=== PATIENT | male | born 1935 | race Caucasian/White ===

== ENCOUNTER → 2017-11-22 13:38 | Outpatient (CLI) | payer MEDICARE, SELFPAY ==
[2017-11-22 17:23] LABS: Absolute Lymphocyte Count 0.76 X10^3/ul (0.83-4.51); Absolute Neutrophil Count 3.8 X10^3/uL (2.0-7.7); Basophil# 0.01 X10^3/uL; Basophil% 0.2 % (0-1); Eosinophil# 0.05 X10^3/uL; Eosinophils% 0.9 % (0-5); Hematocrit 42.9 % (40-54); Hemoglobin 13.9 g/dl (13.0-16.5); Lymphocyte # 0.76 X10^3/ul (4.0); Lymphocyte % 14.4 % (19-41); Mean Corp Hgb Conc 32.4 g/gl (32-36); Mean Corpuscular Hgb 32.4 pg (27.0-32.0); Mean Platelet Vol. 10.5 fl (6.2-12.0); Monocyte# 0.69 X10^3/uL; Monocyte% 13.1 % (0-10); Neutrophil # 3.76 X10^3/uL (2.7-7.7); Neutrophil % 71.4 % (47-70); Platelet Count 113 K/mm3 (150-450); RBC Distribution Width CV 14.9 % (11.6-14.6); RBC Distribution Width SD 53.6 fl (35.1-43.9); Red Blood Count 4.29 M/mm3 (4.6-6.2); White Blood Count 5.3 K/mm3 (4.4-11.0)
[2017-11-22 17:24] LABS: POSITIVE COUNT NO; POSITIVE DIFFERENTIAL NO; POSITIVE MORPHOLOGY NO
[2017-11-22 18:01] LABS: ALB/GLOB Ratio 1.3 RATIO (0.9-2.4); AST(SGOT) 61 U/L (15-37); Alanine Aminotransfer ALT/SGPT 91 U/L (16-61); Albumin, Serum 3.9 g/dL (3.2-5.0); Alkaline Phosphatase 113 U/L (45-117); Anion Gap 9 (5-15); BUN 16 mg/dL (7-18); BUN/Creat Ratio 12.4 RATIO (10-20); Calcium,Total 8.7 mg/dL (8.5-10.1); Chloride 104 mmol/L (98-107); Creatinine, Serum 1.29 mg/dL (0.70-1.30); EST Glomerular Filtration Rate 57 mL/min (>60); Est Glom Filt Rate - Afr Amer 69 mL/min (>60); Globulin 3.1 g/dL (2.2-4.2); Glucose 148 mg/dL (74-106); Sodium Level 139 mmol/L (136-145); Thyroid Stim Hormone (TSH) 3.11 uIU/mL (0.358-3.74)
[2017-11-22 21:37] LABS: Vitamin D,25 Hydroxy 94.1 ng/mL (19.95-100.01)
== END ==
PROVIDERS: Family Provider Family Medicine Geriatric Medicine; PCP Family Medicine Geriatric Medicine; Visit Provider Family Medicine Geriatric Medicine
DX: E55.9 Vitamin D deficiency, unspecified (principal); I10 Essential (primary) hypertension
CPT/HCPCS: 36415; 80053; 82306; 84443; 85025

== ENCOUNTER → 2017-12-20 14:28 | Outpatient (CLI) | payer MEDICARE, BC, SELFPAY ==
[2017-12-20 15:47] LABS: Absolute Lymphocyte Count 0.84 X10^3/ul (0.83-4.51); Absolute Neutrophil Count 4.8 X10^3/uL (2.0-7.7); Basophil# 0.01 X10^3/uL; Basophil% 0.2 % (0-1); Eosinophil# 0.08 X10^3/uL; Eosinophils% 1.2 % (0-5); Hematocrit 42.7 % (40-54); Hemoglobin 13.9 g/dl (13.0-16.5); Lymphocyte # 0.84 X10^3/ul (4.0); Lymphocyte % 12.9 % (19-41); Mean Corp Hgb Conc 32.6 g/gl (32-36); Mean Corpuscular Hgb 32.2 pg (27.0-32.0); Mean Corpuscular Volume 98.8 fL (80-94); Mean Platelet Vol. 10.4 fl (6.2-12.0); Monocyte% 12.3 % (0-10); Neutrophil # 4.75 X10^3/uL (2.7-7.7); Neutrophil % 73.1 % (47-70); Platelet Count 127 K/mm3 (150-450); RBC Distribution Width CV 14.2 % (11.6-14.6); RBC Distribution Width SD 50.8 fl (35.1-43.9); Red Blood Count 4.32 M/mm3 (4.6-6.2); White Blood Count 6.5 K/mm3 (4.4-11.0)
[2017-12-20 15:49] LABS: POSITIVE COUNT NO; POSITIVE DIFFERENTIAL NO; POSITIVE MORPHOLOGY NO
[2017-12-20 16:00] LABS: ALB/GLOB Ratio 1.2 RATIO (0.9-2.4); AST(SGOT) 30 U/L (15-37); Alanine Aminotransfer ALT/SGPT 29 U/L (16-61); Albumin, Serum 3.9 g/dL (3.2-5.0); Alkaline Phosphatase 123 U/L (45-117); Anion Gap 6 (5-15); BUN 17 mg/dL (7-18); BUN/Creat Ratio 14.7 RATIO (10-20); Calcium,Total 8.9 mg/dL (8.5-10.1); Chloride 101 mmol/L (98-107); Creatinine, Serum 1.16 mg/dL (0.70-1.30); EST Glomerular Filtration Rate 64 mL/min (>60); Est Glom Filt Rate - Afr Amer 78 mL/min (>60); Globulin 3.3 g/dL (2.2-4.2); Glucose 76 mg/dL (74-106); Potassium 3.9 mmol/L (3.5-5.1); Protein, Total 7.2 g/dL (6.4-8.2); Sodium Level 141 mmol/L (136-145)
== END ==
PROVIDERS: Family Provider Family Medicine Geriatric Medicine; PCP Family Medicine Geriatric Medicine; Visit Provider Internal Medicine Rheumatology
DX: M05.79 Rheumatoid arthritis with rheumatoid factor of multiple sites without organ or systems involvement (principal); M15.9 Polyosteoarthritis, unspecified; M21.40 Flat foot [pes planus] (acquired), unspecified foot; H35.30 Unspecified macular degeneration; K21.9 Gastro-esophageal reflux disease without esophagitis; I25.10 Atherosclerotic heart disease of native coronary artery without angina pectoris; I10 Essential (primary) hypertension; L12.0 Bullous pemphigoid; J44.9 Chronic obstructive pulmonary disease, unspecified; N40.1 Benign prostatic hyperplasia with lower urinary tract symptoms; Z95.0 Presence of cardiac pacemaker; Z79.899 Other long term (current) drug therapy
CPT/HCPCS: 36415; 80053; 85025

== ENCOUNTER → 2018-02-28 15:28 | Outpatient (CLI) | payer MEDICARE, BC, SELFPAY ==
[2018-02-22 16:13] LABS: BUN 21 mg/dL (7-18); EST Glomerular Filtration Rate 52 mL/min (>60); Est Glom Filt Rate - Afr Amer 63 mL/min (>60)
--- NOTE | 2018-02-28 15:35 | CT_ITS ---
STUDY: CT ANGIOGRAM ABDOMEN AND PELVIS WITH CONTRAST REASON FOR EXAM: Male, 82 years old. AAA repair, follow-up. RADIATION DOSAGE (If Supplied By Facility): CTDIvol = ( 27.70 ) mGy, DLP = ( 641.83 ) mGycm. Thank you Individualized dose optimization techniques were used for this CT.? TECHNIQUE: Thin slice helical CT angiogram of the abdomen and pelvis with curve planar, volume rendered, paracoronal and parasagittal 2-D multiplanar reformatted images saved to the PACS archive. COMPARISON: CT abdomen and pelvis 02/13/2017. FINDINGS: Body wall soft tissues: No acute process. Bilateral fat filled inguinal hernias, hernia defect on the left measuring approximately 3.1 cm and on the right approximately 2.7 cm. Osseous structures: No acute process. Bilateral total hip are the plasty's. Slight lumbar scoliosis. Generalized osteopenia. Mild low lumbar degenerative disc disease and facet arthropathy with mild foraminal stenosis. Mild left greater than right SI joint degenerative changes. Inferior chest: Lung bases are clear with features suggesting the presence of COPD. Correlate smoking history. There is a large sliding hiatal hernia containing the majority of the gastric fundus. The distal esophagus is unremarkable. Heart: Normal heart size without effusion. Median sternotomy. Coronary calcifications. Pacer wires. Hepatobiliary: A few tiny layering radiodense gallstones, otherwise unremarkable gallbladder and biliary tree with normal liver parenchyma. Pancreas: Mild atrophy. Spleen: Normal. Adrenal glands: Normal. Urogenital: Normal bilateral kidneys. Symmetric nephrograms. Intracortical benign-appearing cyst of the right kidney, mid polar. Normal collecting systems, ureters, urinary bladder. No significant prostatomegaly. Seminal vesicles obscured by beam hardening artifact in the pelvis from hip arthroplasties. Pelvic floor and sidewalls and retroperitoneum: No mass or lymphadenopathy. Gastric: Large sliding hiatal hernia, no acute process. Small bowel and mesentery: Normal. Large bowel: Normal appendix. Mild diverticulosis of the sigmoid without diverticulitis. No acute abnormality of the large bowel or rectum. Free fluid or free air: None. Vasculature: Descending thoracic aorta: 3.5 cm just proximal to the diaphragmatic hiatus, stent graft beginning in the hiatus where the aorta measures 3 cm. The stent graft terminates just below the renal arteries, fenestrated renal arteries. Proximal Infrarenal abdominal aorta: Just after the terminus of the stented proximal abdominal aorta, there is a segment of the aorta approximately 3.9 cm in length prior to the stented trouser leg's. This might represent a fabric bridge in the graft. It is uncertain whether graft material is present in this segment. There appears to be mural thrombus on the garcia in this segment, confined by a sharply demarcated rounded margins suggesting graft material. Distal infrarenal abdominal aorta: The stented trouser leg traverse the [place] aneurysm sac. The [place] aneurysm sac measures up to 10.8 cm in length. Proximally, it measures up to 5.36 cm anterior-posterior and 6.6 cm transverse. Distally it measures 4.7 cm anterior-posterior and 4.8 cm transverse. There is a small amount of calcification within the thrombus of the [place] sac. There is no definitive evidence for endoleak. No puddling or enhancement of contrast in the sac. No hyperdense acute thrombus within the sac. Iliac arteries: The stents distal landing zone is in the distal common iliac arteries. Widely patent. There are mild to moderate atherosclerotic calcifications and soft plaque of the internal and external iliac arteries without significant stenosis. There is mild plaque in the proximal femoral arteries without stenosis. Aortic branch vessels: Widely patent celiac trunk, superior mesenteric artery, single bilateral renal arteries. The SADIA is reconstituted via collateral vessels and does not enhance from the aorta. CT/CT ANGIO ABD&PEL W/O&W/DYE IMPRESSION: Morphology of the [place] aneurysm sac and aortoiliac stent is described in detail above. The morphology is similar to that seen on curved planar reformatted images from the prior study of 02/13/2017. The entirety of that study was not available for direct comparison. There is no convincing evidence of endoleak. Additional chronic findings of the abdomen and pelvis are detailed above. Electronically Signed: Frank Hdz, at 16:59 EDT Tel , Service support ,
== END ==
PROVIDERS: Family Provider Family Medicine Geriatric Medicine; PCP Family Medicine Geriatric Medicine; Visit Provider Surgery Vascular Surgery
DX: I71.4 Abdominal aortic aneurysm, without rupture (principal); I25.10 Atherosclerotic heart disease of native coronary artery without angina pectoris; I10 Essential (primary) hypertension; E78.00 Pure hypercholesterolemia, unspecified; Z95.828 Presence of other vascular implants and grafts
CPT/HCPCS: 36415; 74174; 82565; 84520; Q9967

== ENCOUNTER → 2018-04-16 15:50 | Outpatient (CLI) | payer MEDICARE, BC, SELFPAY ==
[2018-04-16 17:35] LABS: Absolute Lymphocyte Count 0.67 X10^3/ul (0.83-4.51); Absolute Neutrophil Count 3.1 X10^3/uL (2.0-7.7); Basophil# 0.01 X10^3/uL; Basophil% 0.2 % (0-1); Eosinophil# 0.09 X10^3/uL; Hematocrit 38.7 % (40-54); Lymphocyte # 0.67 X10^3/ul (4.0); Lymphocyte % 15.2 % (19-41); Mean Corp Hgb Conc 33.6 g/gl (32-36); Mean Corpuscular Hgb 33.2 pg (27.0-32.0); Mean Platelet Vol. 10.3 fl (6.2-12.0); Monocyte# 0.52 X10^3/uL; Monocyte% 11.8 % (0-10); Neutrophil # 3.11 X10^3/uL (2.7-7.7); Neutrophil % 70.6 % (47-70); Platelet Count 85 K/mm3 (150-450); RBC Distribution Width CV 14.6 % (11.6-14.6); RBC Distribution Width SD 51.2 fl (35.1-43.9); Red Blood Count 3.91 M/mm3 (4.6-6.2); White Blood Count 4.4 K/mm3 (4.4-11.0)
[2018-04-16 17:44] LABS: POSITIVE COUNT NO; POSITIVE DIFFERENTIAL NO; POSITIVE MORPHOLOGY NO
[2018-04-16 17:58] LABS: ALB/GLOB Ratio 1.2 RATIO (0.9-2.4); AST(SGOT) 33 U/L (15-37); Alanine Aminotransfer ALT/SGPT 37 U/L (16-61); Albumin, Serum 3.7 g/dL (3.2-5.0); Alkaline Phosphatase 95 U/L (45-117); Anion Gap 10 (5-15); BUN 25 mg/dL (7-18); BUN/Creat Ratio 19.2 RATIO (10-20); Calcium,Total 8.7 mg/dL (8.5-10.1); Chloride 104 mmol/L (98-107); EST Glomerular Filtration Rate 56 mL/min (>60); Est Glom Filt Rate - Afr Amer 68 mL/min (>60); Glucose 135 mg/dL (74-106); Protein, Total 6.7 g/dL (6.4-8.2); Sodium Level 143 mmol/L (136-145)
== END ==
PROVIDERS: Family Provider Family Medicine Geriatric Medicine; PCP Family Medicine Geriatric Medicine; Visit Provider Internal Medicine Rheumatology
DX: M15.9 Polyosteoarthritis, unspecified (principal); M21.40 Flat foot [pes planus] (acquired), unspecified foot; H35.30 Unspecified macular degeneration; K21.9 Gastro-esophageal reflux disease without esophagitis; I25.10 Atherosclerotic heart disease of native coronary artery without angina pectoris; I10 Essential (primary) hypertension; L12.0 Bullous pemphigoid; J44.9 Chronic obstructive pulmonary disease, unspecified; N40.1 Benign prostatic hyperplasia with lower urinary tract symptoms; Z95.0 Presence of cardiac pacemaker; Z79.899 Other long term (current) drug therapy
CPT/HCPCS: 36415; 80053; 85025

== ENCOUNTER → 2018-05-24 15:22 | Outpatient (CLI) | payer MEDICARE, BC, SELFPAY ==
[2018-05-24 17:14] LABS: Absolute Lymphocyte Count 0.68 X10^3/ul (0.83-4.51); Absolute Neutrophil Count 3.2 X10^3/uL (2.0-7.7); Basophil# 0.01 X10^3/uL; Basophil% 0.2 % (0-1); Eosinophil# 0.08 X10^3/uL; Eosinophils% 1.8 % (0-5); Hematocrit 38.6 % (40-54); Hemoglobin 12.4 g/dl (13.0-16.5); Lymphocyte # 0.68 X10^3/ul (4.0); Lymphocyte % 15.2 % (19-41); Mean Corp Hgb Conc 32.1 g/gl (32-36); Mean Corpuscular Hgb 32.6 pg (27.0-32.0); Mean Corpuscular Volume 101.6 fL (80-94); Mean Platelet Vol. 10.2 fl (6.2-12.0); Monocyte# 0.53 X10^3/uL; Monocyte% 11.8 % (0-10); Neutrophil # 3.17 X10^3/uL (2.7-7.7); Neutrophil % 70.8 % (47-70); Platelet Count 89 K/mm3 (150-450); RBC Distribution Width CV 14.8 % (11.6-14.6); RBC Distribution Width SD 53.3 fl (35.1-43.9); White Blood Count 4.5 K/mm3 (4.4-11.0)
[2018-05-24 17:17] LABS: POSITIVE COUNT NO; POSITIVE DIFFERENTIAL NO; POSITIVE MORPHOLOGY NO
[2018-05-24 17:42] LABS: ALB/GLOB Ratio 1.2 RATIO (0.9-2.4); AST(SGOT) 23 U/L (15-37); Alanine Aminotransfer ALT/SGPT 26 U/L (16-61); Albumin, Serum 3.6 g/dL (3.2-5.0); Alkaline Phosphatase 95 U/L (45-117); Anion Gap 10 (5-15); BUN 19 mg/dL (7-18); BUN/Creat Ratio 16.8 RATIO (10-20); Calcium,Total 8.6 mg/dL (8.5-10.1); Chloride 109 mmol/L (98-107); Creatinine, Serum 1.13 mg/dL (0.70-1.30); EST Glomerular Filtration Rate 66 mL/min (>60); Est Glom Filt Rate - Afr Amer 80 mL/min (>60); Globulin 2.9 g/dL (2.2-4.2); Glucose 111 mg/dL (74-106); Potassium 4.4 mmol/L (3.5-5.1); Protein, Total 6.5 g/dL (6.4-8.2); Sodium Level 146 mmol/L (136-145); Thyroid Stim Hormone (TSH) 1.31 uIU/mL (0.358-3.74)
[2018-05-25 08:28] LABS: Vitamin D,25 Hydroxy 129.6 ng/mL (29.95-100.01)
== END ==
PROVIDERS: Family Provider Family Medicine Geriatric Medicine; PCP Family Medicine Geriatric Medicine; Visit Provider Family Medicine Geriatric Medicine
DX: E55.9 Vitamin D deficiency, unspecified (principal); I10 Essential (primary) hypertension
CPT/HCPCS: 36415; 80053; 82306; 84443; 85025

== ENCOUNTER → 2018-06-12 16:46 | Outpatient (CLI) | payer MEDICARE, BC, SELFPAY ==
[2018-06-12 17:55] LABS: Absolute Lymphocyte Count 0.86 X10^3/ul (0.83-4.51); Absolute Neutrophil Count 4.3 X10^3/uL (2.0-7.7); Basophil# 0.01 X10^3/uL; Basophil% 0.2 % (0-1); Eosinophil# 0.08 X10^3/uL; Eosinophils% 1.4 % (0-5); Hematocrit 40.7 % (40-54); Hemoglobin 13.7 g/dl (13.0-16.5); Lymphocyte # 0.86 X10^3/ul (4.0); Lymphocyte % 15.1 % (19-41); Mean Corp Hgb Conc 33.7 g/gl (32-36); Mean Corpuscular Hgb 33.3 pg (27.0-32.0); Mean Corpuscular Volume 98.8 fL (80-94); Mean Platelet Vol. 10.1 fl (6.2-12.0); Monocyte# 0.47 X10^3/uL; Monocyte% 8.3 % (0-10); Neutrophil # 4.26 X10^3/uL (2.7-7.7); Neutrophil % 74.8 % (47-70); Platelet Count 105 K/mm3 (150-450); RBC Distribution Width CV 14.3 % (11.6-14.6); RBC Distribution Width SD 49.3 fl (35.1-43.9); Red Blood Count 4.12 M/mm3 (4.6-6.2); White Blood Count 5.7 K/mm3 (4.4-11.0)
[2018-06-12 17:57] LABS: POSITIVE COUNT NO; POSITIVE DIFFERENTIAL NO; POSITIVE MORPHOLOGY NO
[2018-06-12 18:25] LABS: ALB/GLOB Ratio 1.3 RATIO (0.9-2.4); AST(SGOT) 26 U/L (15-37); Alanine Aminotransfer ALT/SGPT 23 U/L (16-61); Albumin, Serum 3.9 g/dL (3.2-5.0); Alkaline Phosphatase 105 U/L (45-117); Anion Gap 6 (5-15); BUN 18 mg/dL (7-18); BUN/Creat Ratio 16.1 RATIO (10-20); Calcium,Total 8.9 mg/dL (8.5-10.1); Chloride 106 mmol/L (98-107); Creatinine, Serum 1.12 mg/dL (0.70-1.30); EST Glomerular Filtration Rate 67 mL/min (>60); Est Glom Filt Rate - Afr Amer 81 mL/min (>60); Globulin 3.1 g/dL (2.2-4.2); Glucose 92 mg/dL (74-106); Potassium 4.6 mmol/L (3.5-5.1); Sodium Level 140 mmol/L (136-145)
== END ==
PROVIDERS: Family Provider Family Medicine Geriatric Medicine; PCP Family Medicine Geriatric Medicine; Visit Provider Internal Medicine Rheumatology
DX: M05.79 Rheumatoid arthritis with rheumatoid factor of multiple sites without organ or systems involvement (principal); Z79.899 Other long term (current) drug therapy; M15.9 Polyosteoarthritis, unspecified
CPT/HCPCS: 36415; 80053; 85025

== ENCOUNTER → 2018-06-27 13:05 | Outpatient (CLI) | payer MEDICARE, BC, SELFPAY ==
[2018-06-27 15:34] LABS: Absolute Lymphocyte Count 0.89 X10^3/ul (0.83-4.51); Absolute Neutrophil Count 4.3 X10^3/uL (2.0-7.7); Basophil# 0.02 X10^3/uL; Basophil% 0.3 % (0-1); Eosinophil# 0.09 X10^3/uL; Eosinophils% 1.5 % (0-5); Hematocrit 40.3 % (40-54); Hemoglobin 13.3 g/dl (13.0-16.5); Lymphocyte # 0.89 X10^3/ul (4.0); Lymphocyte % 14.7 % (19-41); Mean Corpuscular Hgb 33.4 pg (27.0-32.0); Mean Corpuscular Volume 101.3 fL (80-94); Monocyte# 0.73 X10^3/uL; Neutrophil # 4.32 X10^3/uL (2.7-7.7); Neutrophil % 71.3 % (47-70); Platelet Count 119 K/mm3 (150-450); RBC Distribution Width CV 14.5 % (11.6-14.6); Red Blood Count 3.98 M/mm3 (4.6-6.2); White Blood Count 6.1 K/mm3 (4.4-11.0)
[2018-06-27 15:35] LABS: POSITIVE COUNT NO; POSITIVE DIFFERENTIAL NO; POSITIVE MORPHOLOGY NO
[2018-06-27 16:24] LABS: ALB/GLOB Ratio 1.3 RATIO (0.9-2.4); AST(SGOT) 21 U/L (15-37); Alanine Aminotransfer ALT/SGPT 25 U/L (16-61); Albumin, Serum 3.9 g/dL (3.2-5.0); Alkaline Phosphatase 101 U/L (45-117); Anion Gap 7 (5-15); BUN 21 mg/dL (7-18); BUN/Creat Ratio 17.4 RATIO (10-20); Chloride 106 mmol/L (98-107); Creatinine, Serum 1.21 mg/dL (0.70-1.30); EST Glomerular Filtration Rate 61 mL/min (>60); Est Glom Filt Rate - Afr Amer 74 mL/min (>60); Globulin 3.1 g/dL (2.2-4.2); Glucose 82 mg/dL (74-106); Potassium 4.3 mmol/L (3.5-5.1); Sodium Level 142 mmol/L (136-145); Thyroid Stim Hormone (TSH) 2.18 uIU/mL (0.358-3.74)
== END ==
PROVIDERS: Family Provider Family Medicine Geriatric Medicine; PCP Family Medicine Geriatric Medicine; Visit Provider Family Medicine Geriatric Medicine
DX: I10 Essential (primary) hypertension (principal); N39.0 Urinary tract infection, site not specified
CPT/HCPCS: 36415; 80053; 84443; 85025; 87086; 87088

== ENCOUNTER → 2018-07-03 18:38 | Outpatient (CLI) | payer MEDICARE, BC, SELFPAY ==
--- NOTE | 2018-07-03 | FLU_PTH ---
PATIENT: ADRIEN MAGALLON LOC: [facility] U#:[id number] AGE/SX: 89/M ROOM: RE07/03/[address]: PRICILA Coombs : 1935 BED: DIS: SPEC #: [id number] RECD: 07/03/18 16:00 STATUS: DOMINIC BIJU #: [id number] FRANCISCA: 07/03/18 00:[address]: Nancy Cao NP DEPT: CYTOLOGY RECD BY: Ct Martin Tissues: Urine Procedures: Pap Stain (control) Special Stain Group II Surgery Specimen Level IV Cytospin Fluid HEADER OPERATION: Not noted PRE-OP DIAGNOSIS: R82.99 TISSUE SUBMITTED: Urine for cytology DIAGNOSIS CYTOLOGY Urine for cytology (cytospin): Mildly atypical urothelial cells noted in the background of marked acute inflammation. See comment. STELLA:elicia 07/05/18 COMMENT Numerous organisms consistent with bacteria are also noted. Repeat cytology is suggested if clinically indicated after treatment of inflammation. CYTOLOGY STUDY Slides are reviewed. CYTOLOGY GROSS Received is 710 ml of hazy yellow fluid labeled with the patient's name and and designated per the requisition as urine. Submitted for cytology preparation. / CC:cc 07/04/18 TC:2 CPT: 01606
[2018-07-03 18:40] LABS: Cytology, Body Fluid / CSF SEE PATHOLOGY REPORT
== END ==
PROVIDERS: Referring Provider Nurse Practitioner Adult Health; Visit Provider Nurse Practitioner Adult Health
DX: R82.99 Other abnormal findings in urine (principal)
CPT/HCPCS: 87086; 87088; 88108; 88305; 88313

== ENCOUNTER → 2018-07-16 16:04 | Outpatient (CLI) | payer MEDICARE, BC, SELFPAY ==
[2018-07-16 17:16] LABS: Vitamin D,25 Hydroxy 86.8 ng/mL (29.95-100.01)
== END ==
PROVIDERS: Visit Provider Family Medicine Geriatric Medicine
DX: E55.9 Vitamin D deficiency, unspecified (principal)
CPT/HCPCS: 36415; 82306

== ENCOUNTER 2018-08-25 16:29 | Emergency (ER) | payer MEDICARE, BC, SELFPAY ==
[2018-08-25 16:30] VITALS: BP 144/70; PULSE 57; RESP 16; TEMP 36.2; O2SAT 95; BMI 22.2
--- NOTE | 2018-08-25 17:49 | ED.VISSUMM ---
- ER Visit Summary Date of Service: 08/25/18 Chief Complaint: Bleeding History of Present Illness: The patient is a 83 M with bleeding at his right hand splint. He had surgery to his right fourth and fifth fingers yesterday by Dr. De La Garza. He had pins placed in his phalanges. Patient does take aspirin. He noted some leakage of blood from the splint. He called the office and was advised to come to the emergency department. Patient has no other symptoms. Physical Examination: Afebrile and vital signs unremarkable. Patient has a right ulnar gutter splint in place which shows blood seeping through the dressings. He is neurovascularly intact distally. Otherwise exam unremarkable. Test Results: None performed Emergency Department Course and Treatment: Risks were discussed. Splint was removed. The dressing was partially saturated with blood. Has surgical sites on his dorsal fourth and fifth digits. They are oozing bright red blood. There are neurovascular intact. The wounds appeared normal otherwise. Bleeding resolved with direct pressure and Gelfoam. Splint was reapplied. Patient was advised to follow-up with his physician. Treatment Plan: As above Disposition: Discharged Impression: 1. Wound check right hand This note was generated with [employer] dictation software. It may contain incorrect words, spelling, and punctuation that were not noted in review of the chart prior to signing ED Disposition - Plan for ED Patient: Chief Complaint: Wound Check Referrals: Anuel Garcia Chi, MD [Primary Care Provider] -
--- NOTE | 2018-08-25 17:52 | ED.DCSUM_ITS ---
- ER Visit Summary Date of Service: 08/25/18 Chief Complaint: Bleeding History of Present Illness: The patient is a 83 M with bleeding at his right hand splint. He had surgery to his right fourth and fifth fingers yesterday by Dr. De La Garza. He had pins placed in his phalanges. Patient does take aspirin. H e noted some leakage of blood from the splint. He called the office and was advised to come to the emergency department. Patient has no other symptoms. Physical Examination: Afebrile and vital signs unremarkable. Patient has a right ulnar gutter splint in place which shows blood seeping through the dressings. He is neurovascularly intact distally. Otherwise exam unremarkable. Test Results: None performed Emergency Department Course and Treatment: Risks were discussed. Splint was removed. The dressing was partially saturated with blood. Has surgical sites on his dorsal fourth and fifth digits. They are oozing bright red blood. There are neurovascular intact. The wounds appeared normal otherwise. Bleeding resolved with direct pressure and Gelfoam. Splint was reapplied. Patient was advised to follow-up with his physician. Treatment Plan: As above Disposition: Discharged Impression: 1. Wound check right hand This note was generated with [employer] dictation software. It may contain incorrect words, spelling, and punctuation that were not noted in review of the chart prior to signing ED Disposition - Plan for ED Patient: Chief Complaint: Wound Check Referrals: Anuel Garcia Chi, MD [Primary Care Provider] -
--- NOTE | 2018-08-25 17:52 | ED.DEP ---
ED Disposition - Plan for ED Patient: Chief Complaint: Wound Check Instructions: ED Wound Check Post Op Bleeding Additional Instructions: follow up with your surgeon
== END 2018-08-25 18:23 | disposition short-term general hospital (02) ==
PROVIDERS: Emergency Provider Emergency Medicine; Family Provider Family Medicine Geriatric Medicine; PCP Family Medicine Geriatric Medicine
DX: Z48.01 Encounter for change or removal of surgical wound dressing (principal); I25.10 Atherosclerotic heart disease of native coronary artery without angina pectoris; I11.0 Hypertensive heart disease with heart failure; I50.9 Heart failure, unspecified; I48.91 Unspecified atrial fibrillation; I73.9 Peripheral vascular disease, unspecified; D64.9 Anemia, unspecified; Z95.1 Presence of aortocoronary bypass graft; Z79.82 Long term (current) use of aspirin; Z79.899 Other long term (current) drug therapy; Z87.891 Personal history of nicotine dependence
CPT/HCPCS: 29125; 99283

== ENCOUNTER → 2018-09-12 15:22 | Outpatient (CLI) | payer MEDICARE, BC, SELFPAY ==
[2018-08-25 16:30] VITALS: BMI 22.2
[2018-09-12 17:32] LABS: Absolute Lymphocyte Count 0.62 X10^3/ul (0.83-4.51); Absolute Neutrophil Count 3.5 X10^3/uL (2.0-7.7); Basophil# 0.01 X10^3/uL; Basophil% 0.2 % (0-1); Eosinophil# 0.13 X10^3/uL; Eosinophils% 2.7 % (0-5); Hematocrit 38.3 % (40-54); Hemoglobin 13.1 g/dl (13.0-16.5); Lymphocyte # 0.62 X10^3/ul (4.0); Lymphocyte % 12.9 % (19-41); Mean Corp Hgb Conc 34.2 g/gl (32-36); Mean Corpuscular Hgb 35.3 pg (27.0-32.0); Mean Corpuscular Volume 103.2 fL (80-94); Mean Platelet Vol. 10.1 fl (6.2-12.0); Monocyte# 0.51 X10^3/uL; Monocyte% 10.6 % (0-10); Neutrophil # 3.54 X10^3/uL (2.7-7.7); Neutrophil % 73.4 % (47-70); Platelet Count 95 K/mm3 (150-450); RBC Distribution Width CV 14.7 % (11.6-14.6); RBC Distribution Width SD 53.3 fl (35.1-43.9); Red Blood Count 3.71 M/mm3 (4.6-6.2); White Blood Count 4.8 K/mm3 (4.4-11.0)
[2018-09-12 17:41] LABS: POSITIVE COUNT NO; POSITIVE DIFFERENTIAL NO; POSITIVE MORPHOLOGY NO
[2018-09-12 17:44] LABS: ALB/GLOB Ratio 1.3 RATIO (0.9-2.4); AST(SGOT) 29 U/L (15-37); Alanine Aminotransfer ALT/SGPT 29 U/L (16-61); Albumin, Serum 3.7 g/dL (3.2-5.0); Alkaline Phosphatase 98 U/L (45-117); Anion Gap 9 (5-15); BUN 16 mg/dL (7-18); BUN/Creat Ratio 13.8 RATIO (10-20); Calcium,Total 8.6 mg/dL (8.5-10.1); Chloride 107 mmol/L (98-107); Creatinine, Serum 1.16 mg/dL (0.70-1.30); EST Glomerular Filtration Rate 64 mL/min (>60); Est Glom Filt Rate - Afr Amer 78 mL/min (>60); Globulin 2.9 g/dL (2.2-4.2); Glucose 127 mg/dL (74-106); Potassium 4.1 mmol/L (3.5-5.1); Protein, Total 6.6 g/dL (6.4-8.2); Sodium Level 142 mmol/L (136-145)
== END ==
PROVIDERS: Family Provider Family Medicine Geriatric Medicine; PCP Family Medicine Geriatric Medicine; Referring Provider Internal Medicine Rheumatology; Visit Provider Internal Medicine Rheumatology
DX: M05.79 Rheumatoid arthritis with rheumatoid factor of multiple sites without organ or systems involvement (principal); Z79.899 Other long term (current) drug therapy; M15.9 Polyosteoarthritis, unspecified
CPT/HCPCS: 36415; 80053; 85025

== ENCOUNTER → 2018-12-25 14:29 | Outpatient (CLI) | payer MEDICARE, BC, SELFPAY ==
[2018-12-25 15:38] LABS: Absolute Lymphocyte Count 0.84 X10^3/ul (0.83-4.51); Absolute Neutrophil Count 4.1 X10^3/uL (2.0-7.7); Basophil# 0.02 X10^3/uL; Basophil% 0.3 % (0-1); Eosinophil# 0.05 X10^3/uL; Eosinophils% 0.9 % (0-5); Hematocrit 40.3 % (40-54); Hemoglobin 13.2 g/dl (13.0-16.5); Lymphocyte # 0.84 X10^3/ul (4.0); Lymphocyte % 14.6 % (19-41); Mean Corp Hgb Conc 32.8 g/gl (32-36); Mean Corpuscular Hgb 33.2 pg (27.0-32.0); Mean Corpuscular Volume 101.3 fL (80-94); Mean Platelet Vol. 9.8 fl (6.2-12.0); Monocyte# 0.72 X10^3/uL; Monocyte% 12.5 % (0-10); Neutrophil # 4.12 X10^3/uL (2.7-7.7); Neutrophil % 71.4 % (47-70); Platelet Count 111 K/mm3 (150-450); RBC Distribution Width CV 14.5 % (11.6-14.6); RBC Distribution Width SD 51.7 fl (35.1-43.9); Red Blood Count 3.98 M/mm3 (4.6-6.2); White Blood Count 5.8 K/mm3 (4.4-11.0)
[2018-12-25 15:46] LABS: POSITIVE COUNT NO; POSITIVE DIFFERENTIAL NO; POSITIVE MORPHOLOGY NO
[2018-12-25 16:23] LABS: ALB/GLOB Ratio 1.3 RATIO (0.9-2.4); AST(SGOT) 32 U/L (15-37); Alanine Aminotransfer ALT/SGPT 33 U/L (16-61); Albumin, Serum 3.7 g/dL (3.2-5.0); Alkaline Phosphatase 109 U/L (45-117); Anion Gap 2 (5-15); BUN 23 mg/dL (7-18); BUN/Creat Ratio 20.7 RATIO (10-20); Calcium,Total 8.5 mg/dL (8.5-10.1); Chloride 108 mmol/L (98-107); Creatinine, Serum 1.11 mg/dL (0.70-1.30); EST Glomerular Filtration Rate 67 mL/min (>60); Est Glom Filt Rate - Afr Amer 82 mL/min (>60); Globulin 2.8 g/dL (2.2-4.2); Glucose 75 mg/dL (74-106); Potassium 4.6 mmol/L (3.5-5.1); Protein, Total 6.5 g/dL (6.4-8.2); Sodium Level 140 mmol/L (136-145)
== END ==
PROVIDERS: Family Provider Family Medicine Geriatric Medicine; PCP Family Medicine Geriatric Medicine; Referring Provider Internal Medicine Rheumatology; Visit Provider Internal Medicine Rheumatology
DX: M05.79 Rheumatoid arthritis with rheumatoid factor of multiple sites without organ or systems involvement (principal); M15.9 Polyosteoarthritis, unspecified; M21.40 Flat foot [pes planus] (acquired), unspecified foot; H35.30 Unspecified macular degeneration; Z79.899 Other long term (current) drug therapy
CPT/HCPCS: 36415; 80053; 85025

== ENCOUNTER → 2019-03-12 16:34 | Outpatient (CLI) | payer MEDICARE, BC, SELFPAY ==
[2019-03-12 17:05] LABS: Absolute Lymphocyte Count 0.93 X10^3/ul (0.83-4.51); Basophil# 0.01 X10^3/uL; Basophil% 0.2 % (0-1); Eosinophil# 0.08 X10^3/uL; Eosinophils% 1.4 % (0-5); Hematocrit 39.9 % (40-54); Hemoglobin 13.3 g/dl (13.0-16.5); Lymphocyte # 0.93 X10^3/ul (4.0); Lymphocyte % 16.8 % (19-41); Mean Corp Hgb Conc 33.3 g/gl (32-36); Mean Corpuscular Hgb 32.6 pg (27.0-32.0); Mean Corpuscular Volume 97.8 fL (80-94); Mean Platelet Vol. 10.1 fl (6.2-12.0); Monocyte# 0.53 X10^3/uL; Monocyte% 9.6 % (0-10); Neutrophil # 3.97 X10^3/uL (2.7-7.7); Neutrophil % 71.8 % (47-70); Platelet Count 101 K/mm3 (150-450); RBC Distribution Width CV 14.2 % (11.6-14.6); RBC Distribution Width SD 49.9 fl (35.1-43.9); Red Blood Count 4.08 M/mm3 (4.6-6.2); White Blood Count 5.5 K/mm3 (4.4-11.0)
[2019-03-12 17:07] LABS: POSITIVE COUNT NO; POSITIVE DIFFERENTIAL NO; POSITIVE MORPHOLOGY NO
[2019-03-12 17:47] LABS: ALB/GLOB Ratio 1.2 RATIO (0.9-2.4); AST(SGOT) 33 U/L (15-37); Alanine Aminotransfer ALT/SGPT 37 U/L (16-61); Albumin, Serum 3.7 g/dL (3.2-5.0); Alkaline Phosphatase 124 U/L (45-117); Anion Gap 8 (5-15); BUN 19 mg/dL (7-18); BUN/Creat Ratio 15.8 RATIO (10-20); Chloride 107 mmol/L (98-107); EST Glomerular Filtration Rate 62 mL/min (>60); Est Glom Filt Rate - Afr Amer 75 mL/min (>60); Globulin 3.1 g/dL (2.2-4.2); Glucose 126 mg/dL (74-106); Potassium 4.2 mmol/L (3.5-5.1); Protein, Total 6.8 g/dL (6.4-8.2); Sodium Level 140 mmol/L (136-145)
== END ==
PROVIDERS: Family Provider Family Medicine Geriatric Medicine; PCP Family Medicine Geriatric Medicine; Referring Provider Internal Medicine Rheumatology; Visit Provider Internal Medicine Rheumatology
DX: M05.79 Rheumatoid arthritis with rheumatoid factor of multiple sites without organ or systems involvement (principal); M15.9 Polyosteoarthritis, unspecified; M21.40 Flat foot [pes planus] (acquired), unspecified foot; H35.30 Unspecified macular degeneration; K21.9 Gastro-esophageal reflux disease without esophagitis; I25.10 Atherosclerotic heart disease of native coronary artery without angina pectoris; I10 Essential (primary) hypertension; L12.0 Bullous pemphigoid; J44.9 Chronic obstructive pulmonary disease, unspecified; Z95.0 Presence of cardiac pacemaker; Z79.899 Other long term (current) drug therapy
CPT/HCPCS: 36415; 80053; 85025

== ENCOUNTER → 2019-03-15 13:01 | Outpatient (CLI) | payer MEDICARE, BC, SELFPAY ==
--- NOTE | 2019-03-15 13:03 | ART_ITS ---
Reason For Study: ATHEROSCLEROSIS Procedure A bilateral lower extremity continuous wave Doppler with analog waveform analysis and ankle brachial indexes. Left Segmental Pressures Left posterior tibial artery = 154mmHg. Left dorsalis pedis artery = 155mmHg. Left digit = 95 mmHg. The left dorsalis pedis waveforms are biphasic. The left posterior tibial artery waveforms are biphasic. Left brachial= 147mmHg. Right Segmental Pressures Right posterior tibial artery = 160mmHg. Right dorsalis pedis artery = 169mmHg. Right digit = 99 mmHg. The right dorsalis pedis waveforms are triphasic. The right posterior tibial artery waveforms are triphasic. Right brachial= 156mmHg. Indices The right ankle brachial index by the dorsalis pedis is 1.08. The right ankle brachial index by the posterior tibial artery is 1.03. The right digital-brachial index is .63. The left ankle brachial index by the posterior tibial artery is .99. The left ankle brachial index by the dorsalis pedis is .99. The left digital-brachial index is .61. Interpretation Summary 1. Bilateral no occlussive disease at rest with triphasic flow and miguel 1.08/0.99 and dbi 0.63/0.60. Ordering Physician: Daniel Salmeron Referring Physician: PUNEET NIX CHI Performed By: Simi Palomo, SANDYCS, RVT
[2019-03-15 15:31] LABS: BUN 19 mg/dL (7-18); Creatinine, Serum 1.06 mg/dL (0.70-1.30); EST Glomerular Filtration Rate 71 mL/min (>60); Est Glom Filt Rate - Afr Amer 86 mL/min (>60)
== END ==
PROVIDERS: Family Provider Family Medicine Geriatric Medicine; PCP Family Medicine Geriatric Medicine; Referring Provider Surgery Vascular Surgery; Visit Provider Surgery Vascular Surgery
DX: I70.213 Atherosclerosis of native arteries of extremities with intermittent claudication, bilateral legs (principal); I25.10 Atherosclerotic heart disease of native coronary artery without angina pectoris; I71.4 Abdominal aortic aneurysm, without rupture; I10 Essential (primary) hypertension; E78.70 Disorder of bile acid and cholesterol metabolism, unspecified; Z95.828 Presence of other vascular implants and grafts
CPT/HCPCS: 36415; 82565; 84520; 93922

== ENCOUNTER → 2019-03-28 | Outpatient (CLI) | payer MEDICARE, BC, SELFPAY ==
[2019-03-28 15:38] LABS: Absolute Neutrophil Count 3.4 X10^3/uL (2.0-7.7); Basophil# 0.01 X10^3/uL; Basophil% 0.2 % (0-1); Eosinophil# 0.07 X10^3/uL; Eosinophils% 1.4 % (0-5); Hematocrit 41.7 % (40-54); Hemoglobin 13.5 g/dl (13.0-16.5); Lymphocyte % 14.1 % (19-41); Mean Corp Hgb Conc 32.4 g/gl (32-36); Mean Corpuscular Hgb 31.5 pg (27.0-32.0); Mean Corpuscular Volume 97.4 fL (80-94); Mean Platelet Vol. 9.9 fl (6.2-12.0); Monocyte# 0.72 X10^3/uL; Monocyte% 14.5 % (0-10); Neutrophil # 3.43 X10^3/uL (2.7-7.7); Neutrophil % 69.4 % (47-70); Platelet Count 117 K/mm3 (150-450); RBC Distribution Width SD 47.2 fl (35.1-43.9); Red Blood Count 4.28 M/mm3 (4.6-6.2)
[2019-03-28 15:39] LABS: POSITIVE COUNT NO; POSITIVE DIFFERENTIAL NO; POSITIVE MORPHOLOGY NO
[2019-03-28 16:03] LABS: Vitamin D,25 Hydroxy 55.5 ng/mL (29.95-100.01)
[2019-03-28 16:04] LABS: ALB/GLOB Ratio 1.1 RATIO (0.9-2.4); AST(SGOT) 26 U/L (15-37); Alanine Aminotransfer ALT/SGPT 31 U/L (16-61); Albumin, Serum 3.5 g/dL (3.2-5.0); Alkaline Phosphatase 116 U/L (45-117); Anion Gap 7 (5-15); BUN 20 mg/dL (7-18); BUN/Creat Ratio 16.7 RATIO (10-20); Calcium,Total 8.8 mg/dL (8.5-10.1); Chloride 107 mmol/L (98-107); EST Glomerular Filtration Rate 62 mL/min (>60); Est Glom Filt Rate - Afr Amer 75 mL/min (>60); Globulin 3.2 g/dL (2.2-4.2); Glucose 121 mg/dL (74-106); Potassium 4.3 mmol/L (3.5-5.1); Protein, Total 6.7 g/dL (6.4-8.2); Sodium Level 143 mmol/L (136-145); Thyroid Stim Hormone (TSH) 2.03 uIU/mL (0.358-3.74)
== END | disposition home or self-care (01) ==
LOC: POLAB3 10:37
PROVIDERS: Family Provider Family Medicine Geriatric Medicine; PCP Family Medicine Geriatric Medicine; Visit Provider Family Medicine Geriatric Medicine
DX: E55.9 Vitamin D deficiency, unspecified (principal); I10 Essential (primary) hypertension
CPT/HCPCS: 36415; 80053; 82306; 84443; 85025

== ENCOUNTER → 2019-06-06 14:42 | Outpatient (CLI) | payer MEDICARE, BC, SELFPAY ==
[2019-06-03 17:08] LABS: BUN 12 mg/dL (7-18); Creatinine, Serum 1.13 mg/dL (0.70-1.30); EST Glomerular Filtration Rate 66 mL/min (>60); Est Glom Filt Rate - Afr Amer 80 mL/min (>60)
--- NOTE | 2019-06-06 14:46 | CT_ITS ---
CT angiogram of the abdomen and pelvis INDICATION: Abdominal aortic aneurysm. COMPARISON: 02/28/2018 TECHNIQUE: Multiple thin section axial CT images the abdomen and pelvis are obtained from lung bases to pubic symphysis without the ministration of oral contrast and after administration of 100 mL of Isovue-370 intravenously and filmed in the arterial phase the bolus. Furthermore, multiple sagittal, coronal, 3-D reconstructions were performed. FINDINGS: The lung bases are clear. Some calcified gallstones are seen in the gallbladder consistent with cholelithiasis. The unenhanced liver, spleen, pancreas, adrenal glands, and kidneys are normal. Large hiatal hernia. Large amount of stool the rectum may represent a fecal impaction. Multiple diverticula throughout the colon consistent with diverticulosis. No bowel wall thickening or stranding 70 fat consistent radiculitis. There are small bilateral anal hernias with a hernia in the right containing a loop of small bowel in the hernia in the left containing a loop of sigmoid colon but without bowel obstruction. No abnormal mass, lymphadenopathy, fluid collection. Next 3.5 cm aneurysm of the distal descending thoracic aorta. There is no change in the 5.5 cm aneurysm of the infrarenal abdominal aorta treated with aortic stent graft. There is no evidence of contrast enhancement within the sac to suggest endoleak. Both limbs of the graft are patent. Moderately diseased iliac arteries. The celiac axis and superior mesenteric artery are widely patent without evidence chronic mesenteric ischemia. The inferior mesenteric artery is excluded by the aneurysm. There are single renal arteries bilaterally without evidence of renal artery stenosis. IMPRESSION: No change in 5.5 cm abdominal aortic aneurysm treated with aortic stent graft without evidence of endoleak. Electronically Signed: Frank Mohamud MD at 15:47 EDT Tel , Service support , CT/CT ANGIO ABD&PEL W/O&W/DYE
== END ==
PROVIDERS: Family Provider Family Medicine Geriatric Medicine; PCP Family Medicine Geriatric Medicine; Referring Provider Surgery Vascular Surgery; Visit Provider Surgery Vascular Surgery
DX: Z95.828 Presence of other vascular implants and grafts (principal); I71.4 Abdominal aortic aneurysm, without rupture; I25.10 Atherosclerotic heart disease of native coronary artery without angina pectoris; E78.70 Disorder of bile acid and cholesterol metabolism, unspecified; I10 Essential (primary) hypertension
CPT/HCPCS: 36415; 74174; 82565; 84520; Q9967

== ENCOUNTER → 2019-06-21 16:10 | Outpatient (CLI) | payer MEDICARE, BC, SELFPAY ==
[2019-06-21 17:54] LABS: ALB/GLOB Ratio 1.2 RATIO (0.9-2.4); AST(SGOT) 26 U/L (15-37); Alanine Aminotransfer ALT/SGPT 28 U/L (16-61); Albumin, Serum 3.5 g/dL (3.2-5.0); Alkaline Phosphatase 113 U/L (45-117); Anion Gap 7 (5-15); BUN 15 mg/dL (7-18); BUN/Creat Ratio 13.5 RATIO (10-20); Calcium,Total 8.6 mg/dL (8.5-10.1); Chloride 109 mmol/L (98-107); Creatinine, Serum 1.11 mg/dL (0.70-1.30); EST Glomerular Filtration Rate 67 mL/min (>60); Est Glom Filt Rate - Afr Amer 82 mL/min (>60); Glucose 91 mg/dL (74-106); Potassium 4.7 mmol/L (3.5-5.1); Protein, Total 6.5 g/dL (6.4-8.2); Sodium Level 142 mmol/L (136-145)
[2019-06-21 18:16] LABS: Absolute Lymphocyte Count 0.87 X10^3/uL (0.83-4.51); Absolute Neutrophil Count 3.6 X10^3/uL (2.0-7.7); Basophil# 0.02 X10^3/uL; Basophil% 0.4 % (0-1); Eosinophil# 0.07 X10^3/uL; Eosinophils% 1.3 % (0-5); Hematocrit 38.1 % (40-54); Hemoglobin 12.4 g/dL (13.0-16.5); Lymphocyte # 0.87 X10^3/ul (4.0); Lymphocyte % 16.3 % (19-41); Mean Corp Hgb Conc 32.5 g/dL (32-36); Mean Corpuscular Hgb 34.1 pg (27.0-32.0); Mean Corpuscular Volume 104.7 fL (80-94); Mean Platelet Vol. 10.6 fl (6.2-12.0); Monocyte# 0.73 X10^3/uL; Monocyte% 13.7 % (0-10); NRBC Flagged by Analyzer 0 % (0-5); Neutrophil # 3.62 X10^3/uL (2.7-7.7); Neutrophil % 67.9 % (47-70); Platelet Count 108 K/mm3 (150-450); RBC Distribution Width CV 14.7 % (11.6-14.6); RBC Distribution Width SD 55.4 fl (35.1-43.9); Red Blood Count 3.64 M/mm3 (4.6-6.2); White Blood Count 5.3 K/mm3 (4.4-11.0)
== END ==
PROVIDERS: Family Provider Family Medicine Geriatric Medicine; PCP Family Medicine Geriatric Medicine; Referring Provider Family Medicine Geriatric Medicine; Visit Provider Internal Medicine Rheumatology
DX: M05.79 Rheumatoid arthritis with rheumatoid factor of multiple sites without organ or systems involvement (principal); M15.9 Polyosteoarthritis, unspecified; M21.40 Flat foot [pes planus] (acquired), unspecified foot; H35.30 Unspecified macular degeneration; K21.9 Gastro-esophageal reflux disease without esophagitis; I25.10 Atherosclerotic heart disease of native coronary artery without angina pectoris; I10 Essential (primary) hypertension; L12.0 Bullous pemphigoid; J44.9 Chronic obstructive pulmonary disease, unspecified; N40.1 Benign prostatic hyperplasia with lower urinary tract symptoms; Z95.0 Presence of cardiac pacemaker; Z79.899 Other long term (current) drug therapy
CPT/HCPCS: 36415; 80053; 85025

== ENCOUNTER → 2019-07-11 13:34 | Outpatient (CLI) | payer MEDICARE, BC, SELFPAY ==
[2019-07-11 16:43] LABS: Absolute Lymphocyte Count 0.74 X10^3/uL (0.83-4.51); Absolute Neutrophil Count 4.1 X10^3/uL (2.0-7.7); Basophil# 0.02 X10^3/uL; Basophil% 0.3 % (0-1); Eosinophils% 1.7 % (0-5); Hematocrit 37.9 % (40-54); Hemoglobin 12.7 g/dL (13.0-16.5); Lymphocyte # 0.74 X10^3/ul (4.0); Lymphocyte % 12.7 % (19-41); Mean Corp Hgb Conc 33.5 g/dL (32-36); Mean Corpuscular Hgb 34.8 pg (27.0-32.0); Mean Corpuscular Volume 103.8 fL (80-94); Mean Platelet Vol. 10.3 fl (6.2-12.0); Monocyte# 0.78 X10^3/uL; Monocyte% 13.4 % (0-10); NRBC Flagged by Analyzer 0 % (0-5); Neutrophil # 4.13 X10^3/uL (2.7-7.7); Neutrophil % 71.2 % (47-70); Platelet Count 105 K/mm3 (150-450); RBC Distribution Width CV 14.3 % (11.6-14.6); RBC Distribution Width SD 51.8 fl (35.1-43.9); Red Blood Count 3.65 M/mm3 (4.6-6.2); White Blood Count 5.8 K/mm3 (4.4-11.0)
[2019-07-11 17:43] LABS: ALB/GLOB Ratio 1.3 RATIO (0.9-2.4); AST(SGOT) 25 U/L (15-37); Alanine Aminotransfer ALT/SGPT 30 U/L (16-61); Albumin, Serum 3.9 g/dL (3.2-5.0); Alkaline Phosphatase 131 U/L (45-117); Anion Gap 3 (5-15); BUN 16 mg/dL (7-18); BUN/Creat Ratio 11.9 RATIO (10-20); Calcium,Total 8.8 mg/dL (8.5-10.1); Chloride 108 mmol/L (98-107); Creatinine, Serum 1.35 mg/dL (0.70-1.30); EST Glomerular Filtration Rate 54 mL/min (>60); Est Glom Filt Rate - Afr Amer 65 mL/min (>60); Ferritin 117 ng/mL (26-388); Glucose 96 mg/dL (74-106); Iron 60 ug/dL (65-175); Iron Binding Capacity,Total 266 ug/dL (250-450); Potassium 4.1 mmol/L (3.5-5.1); Protein, Total 6.9 g/dL (6.4-8.2); Sodium Level 140 mmol/L (136-145); Thyroid Stim Hormone (TSH) 2.62 uIU/mL (0.358-3.74)
== END ==
PROVIDERS: Family Provider Family Medicine Geriatric Medicine; PCP Family Medicine Geriatric Medicine; Visit Provider Family Medicine Geriatric Medicine
DX: D50.9 Iron deficiency anemia, unspecified (principal); R53.83 Other fatigue
CPT/HCPCS: 36415; 80053; 82728; 82746; 83540; 83550; 84443; 85025

== ENCOUNTER → 2019-07-18 15:22 | Outpatient (CLI) | payer MEDICARE, BC, SELFPAY ==
[2019-07-18 16:15] LABS: Absolute Lymphocyte Count 0.77 X10^3/uL (0.83-4.51); Absolute Neutrophil Count 3.6 X10^3/uL (2.0-7.7); Basophil# 0.02 X10^3/uL; Basophil% 0.4 % (0-1); Eosinophil# 0.11 X10^3/uL; Eosinophils% 2.1 % (0-5); Hematocrit 39.5 % (40-54); Hemoglobin 12.9 g/dL (13.0-16.5); Lymphocyte # 0.77 X10^3/ul (4.0); Lymphocyte % 14.7 % (19-41); Mean Corp Hgb Conc 32.7 g/dL (32-36); Mean Corpuscular Hgb 33.1 pg (27.0-32.0); Mean Corpuscular Volume 101.3 fL (80-94); Mean Platelet Vol. 9.9 fl (6.2-12.0); Monocyte# 0.66 X10^3/uL; Monocyte% 12.6 % (0-10); NRBC Flagged by Analyzer 0 % (0-5); Neutrophil # 3.63 X10^3/uL (2.7-7.7); Neutrophil % 69.4 % (47-70); Platelet Count 101 K/mm3 (150-450); RBC Distribution Width CV 14.2 % (11.6-14.6); RBC Distribution Width SD 51.1 fl (35.1-43.9); White Blood Count 5.2 K/mm3 (4.4-11.0)
[2019-07-18 17:21] LABS: Anion Gap 7 (5-15); BUN 18 mg/dL (7-18); BUN/Creat Ratio 16.2 RATIO (10-20); Calcium,Total 8.2 mg/dL (8.5-10.1); Chloride 111 mmol/L (98-107); Creatinine, Serum 1.11 mg/dL (0.70-1.30); EST Glomerular Filtration Rate 67 mL/min (>60); Est Glom Filt Rate - Afr Amer 82 mL/min (>60); Glucose 87 mg/dL (74-106); Potassium 3.8 mmol/L (3.5-5.1); Sodium Level 144 mmol/L (136-145)
== END ==
PROVIDERS: Family Provider Family Medicine Geriatric Medicine; PCP Family Medicine Geriatric Medicine; Visit Provider Family Medicine Geriatric Medicine
DX: R53.83 Other fatigue (principal)
CPT/HCPCS: 36415; 80048; 85025

== ENCOUNTER → 2019-09-03 14:54 | Outpatient (CLI) | payer MEDICARE, BC, SELFPAY ==
[2019-08-26 13:43] VITALS: BMI 23.2
[2019-09-03 18:07] LABS: Absolute Lymphocyte Count 0.74 X10^3/uL (0.83-4.51); Absolute Neutrophil Count 4.3 X10^3/uL (2.0-7.7); Basophil# 0.02 X10^3/uL; Basophil% 0.3 % (0-1); Eosinophil# 0.07 X10^3/uL; Eosinophils% 1.2 % (0-5); Hematocrit 40.4 % (40-54); Hemoglobin 13.3 g/dL (13.0-16.5); Lymphocyte # 0.74 X10^3/ul (4.0); Lymphocyte % 12.5 % (19-41); Mean Corp Hgb Conc 32.9 g/dL (32-36); Mean Corpuscular Volume 100.2 fL (80-94); Mean Platelet Vol. 10.3 fl (6.2-12.0); Monocyte# 0.79 X10^3/uL; Monocyte% 13.3 % (0-10); NRBC Flagged by Analyzer 0 % (0-5); Neutrophil # 4.27 X10^3/uL (2.7-7.7); Neutrophil % 72.2 % (47-70); Platelet Count 108 K/mm3 (150-450); RBC Distribution Width CV 14.5 % (11.6-14.6); RBC Distribution Width SD 51.8 fl (35.1-43.9); Red Blood Count 4.03 M/mm3 (4.6-6.2); White Blood Count 5.9 K/mm3 (4.4-11.0)
[2019-09-03 18:10] LABS: Anion Gap 7 (5-15); BUN 24 mg/dL (7-18); Calcium,Total 8.9 mg/dL (8.5-10.1); Chloride 107 mmol/L (98-107); Creatinine, Serum 1.09 mg/dL (0.70-1.30); EST Glomerular Filtration Rate 69 mL/min (>60); Est Glom Filt Rate - Afr Amer 83 mL/min (>60); Glucose 76 mg/dL (74-106); Potassium 4.1 mmol/L (3.5-5.1); Sodium Level 141 mmol/L (136-145)
== END ==
PROVIDERS: Family Provider Family Medicine Geriatric Medicine; PCP Family Medicine Geriatric Medicine; Visit Provider Family Medicine Geriatric Medicine
DX: D50.9 Iron deficiency anemia, unspecified (principal)
CPT/HCPCS: 36415; 80048; 85025

== ENCOUNTER → 2019-09-12 16:17 | Outpatient (CLI) | payer MEDICARE, BC, SELFPAY ==
[2019-08-26 13:43] VITALS: BMI 23.2
[2019-09-12 17:30] LABS: Absolute Lymphocyte Count 0.72 X10^3/uL (0.83-4.51); Basophil# 0.02 X10^3/uL; Basophil% 0.5 % (0-1); Eosinophil# 0.05 X10^3/uL; Eosinophils% 1.1 % (0-5); Hematocrit 41.1 % (40-54); Hemoglobin 13.3 g/dL (13.0-16.5); Lymphocyte # 0.72 X10^3/ul (4.0); Lymphocyte % 16.6 % (19-41); Mean Corp Hgb Conc 32.4 g/dL (32-36); Mean Corpuscular Hgb 32.7 pg (27.0-32.0); Mean Platelet Vol. 10.4 fl (6.2-12.0); Monocyte% 11.5 % (0-10); NRBC Flagged by Analyzer 0 % (0-5); Neutrophil # 3.03 X10^3/uL (2.7-7.7); Neutrophil % 69.6 % (47-70); POSITIVE COUNT YES; Platelet Count 98 K/mm3 (150-450); RBC Distribution Width SD 50.1 fl (35.1-43.9); Red Blood Count 4.07 M/mm3 (4.6-6.2); White Blood Count 4.4 K/mm3 (4.4-11.0)
[2019-09-12 17:45] LABS: ALB/GLOB Ratio 1.2 RATIO (0.9-2.4); AST(SGOT) 82 U/L (15-37); Alanine Aminotransfer ALT/SGPT 101 U/L (16-61); Albumin, Serum 3.7 g/dL (3.2-5.0); Alkaline Phosphatase 124 U/L (45-117); Anion Gap 2 (5-15); BUN 19 mg/dL (7-18); BUN/Creat Ratio 14.8 RATIO (10-20); Calcium,Total 8.8 mg/dL (8.5-10.1); Chloride 106 mmol/L (98-107); Creatinine, Serum 1.28 mg/dL (0.70-1.30); EST Glomerular Filtration Rate 57 mL/min (>60); Est Glom Filt Rate - Afr Amer 69 mL/min (>60); Glucose 112 mg/dL (74-106); Potassium 4.5 mmol/L (3.5-5.1); Protein, Total 6.7 g/dL (6.4-8.2); Sodium Level 139 mmol/L (136-145)
[2019-09-12 18:15] LABS: Differential Indicated SCAN CRITERIA MET
[2019-09-12 18:17] LABS: Platelet Estimate ADEQUATE (ADEQ); Red Cell Morphology N CHROM NORMAL (NORM C&C)
[2019-09-12 18:18] LABS: Anisocytosis 1+; Macrocytosis 1+
== END ==
PROVIDERS: Family Provider Family Medicine Geriatric Medicine; PCP Family Medicine Geriatric Medicine; Referring Provider Internal Medicine Rheumatology; Visit Provider Internal Medicine Rheumatology
DX: M05.79 Rheumatoid arthritis with rheumatoid factor of multiple sites without organ or systems involvement (principal); M15.9 Polyosteoarthritis, unspecified; M21.40 Flat foot [pes planus] (acquired), unspecified foot; H35.30 Unspecified macular degeneration; K21.9 Gastro-esophageal reflux disease without esophagitis; I25.10 Atherosclerotic heart disease of native coronary artery without angina pectoris; I10 Essential (primary) hypertension; L12.0 Bullous pemphigoid; J44.9 Chronic obstructive pulmonary disease, unspecified; N40.1 Benign prostatic hyperplasia with lower urinary tract symptoms; Z95.0 Presence of cardiac pacemaker; Z79.899 Other long term (current) drug therapy
CPT/HCPCS: 36415; 80053; 85025

== ENCOUNTER → 2019-10-29 10:05 | Outpatient (CLI) | payer MEDICARE, BC, SELFPAY ==
[2019-08-26 13:43] VITALS: BMI 23.2
--- NOTE | 2019-10-29 10:11 | US_ITS ---
STUDY: ABDOMINAL ULTRASOUND - RIGHT UPPER QUADRANT REASON FOR VISIT: Male, 84 years old ELEVATED LFT''S TECHNIQUE: Ultrasound evaluation of the right upper quadrant was performed with real-time and static pedroza-scale imaging. TECHNICAL QUALITY: Limited. COMPARISON: Comparison is made with prior ultrasound dated February 22, 2016. FINDINGS: Liver: The liver measures 13.0 cm. There is normal echogenicity of the liver. The bile ducts are within normal limits. There is hepatic color flow. The direction of portal flow is hepatopetal. There is no demonstrated mass lesion. Gallbladder: Normal distended gallbladder. The gallbladder wall measures 1.6 mm. There is a negative sonographic Talavera''s sign. There is no pericholecystic fluid. There are multiple echogenic structures within the gallbladder, consistent with multiple gallstones. A small amount of sludge is also seen within the gallbladder lumen. Common Bile Duct (C.B.D.): The common bile duct measures 3.8 mm. Pancreas: There is nonvisualization of the pancreas due to overlying bowel gas. Right Kidney: Normal size of the right kidney. The right kidney measures 10.7 cm x 4.8 cm x 4.1 cm. Normal renal cortex. The right cortex measures 1.3 cm. There is a 1.2 cm x 1 cm x 0.9 cm cyst in the midpole. There is no right hydronephrosis. US/Liver IMPRESSION: Multiple gallstones. Right renal cyst. Electronically Signed: Jani Bills, at 15:08 EST , Service support ,
== END ==
PROVIDERS: Family Provider Family Medicine Geriatric Medicine; PCP Family Medicine Geriatric Medicine; Referring Provider Internal Medicine Rheumatology; Visit Provider Internal Medicine Rheumatology
DX: M05.79 Rheumatoid arthritis with rheumatoid factor of multiple sites without organ or systems involvement (principal); I10 Essential (primary) hypertension; I25.10 Atherosclerotic heart disease of native coronary artery without angina pectoris; M15.9 Polyosteoarthritis, unspecified; M21.40 Flat foot [pes planus] (acquired), unspecified foot; H35.30 Unspecified macular degeneration; K21.9 Gastro-esophageal reflux disease without esophagitis; L12.0 Bullous pemphigoid; J44.9 Chronic obstructive pulmonary disease, unspecified; N40.1 Benign prostatic hyperplasia with lower urinary tract symptoms; Z79.899 Other long term (current) drug therapy; Z95.0 Presence of cardiac pacemaker
CPT/HCPCS: 76705

== ENCOUNTER → 2019-10-31 15:03 | Outpatient (CLI) | payer MEDICARE, BC, SELFPAY ==
[2019-08-26 13:43] VITALS: BMI 23.2
[2019-10-31 17:55] LABS: Absolute Lymphocyte Count 1.03 X10^3/uL (0.83-4.51); Absolute Neutrophil Count 4.4 X10^3/uL (2.0-7.7); Basophil# 0.01 X10^3/uL; Basophil% 0.2 % (0-1); Eosinophil# 0.09 X10^3/uL; Eosinophils% 1.5 % (0-5); Hematocrit 44.7 % (40-54); Hemoglobin 14.2 g/dL (13.0-16.5); Lymphocyte # 1.03 X10^3/ul (4.0); Lymphocyte % 16.6 % (19-41); Mean Corp Hgb Conc 31.8 g/dL (32-36); Mean Corpuscular Hgb 31.2 pg (27.0-32.0); Mean Corpuscular Volume 98.2 fL (80-94); Mean Platelet Vol. 10.6 fl (6.2-12.0); Monocyte# 0.61 X10^3/uL; Monocyte% 9.8 % (0-10); NRBC Flagged by Analyzer 0 % (0-5); Neutrophil # 4.44 X10^3/uL (2.7-7.7); Neutrophil % 71.6 % (47-70); Platelet Count 108 K/mm3 (150-450); RBC Distribution Width CV 13.8 % (11.6-14.6); RBC Distribution Width SD 49.4 fl (35.1-43.9); Red Blood Count 4.55 M/mm3 (4.6-6.2); White Blood Count 6.2 K/mm3 (4.4-11.0)
[2019-10-31 18:12] LABS: ALB/GLOB Ratio 1.1 RATIO (0.9-2.4); AST(SGOT) 29 U/L (15-37); Alanine Aminotransfer ALT/SGPT 43 U/L (16-61); Albumin, Serum 3.9 g/dL (3.2-5.0); Alkaline Phosphatase 109 U/L (45-117); Anion Gap 5 (5-15); BUN 28 mg/dL (7-18); Calcium,Total 9.3 mg/dL (8.5-10.1); Chloride 107 mmol/L (98-107); Creatinine, Serum 1.22 mg/dL (0.70-1.30); EST Glomerular Filtration Rate 60 mL/min (>60); Est Glom Filt Rate - Afr Amer 73 mL/min (>60); Globulin 3.5 g/dL (2.2-4.2); Glucose 101 mg/dL (74-106); Potassium 4.6 mmol/L (3.5-5.1); Protein, Total 7.4 g/dL (6.4-8.2); Sodium Level 141 mmol/L (136-145)
== END ==
PROVIDERS: PCP Family Medicine Geriatric Medicine; Referring Provider Internal Medicine Rheumatology; Visit Provider Internal Medicine Rheumatology
DX: I10 Essential (primary) hypertension (principal); I25.10 Atherosclerotic heart disease of native coronary artery without angina pectoris; M05.70 Rheumatoid arthritis with rheumatoid factor of unspecified site without organ or systems involvement; M15.9 Polyosteoarthritis, unspecified; M21.40 Flat foot [pes planus] (acquired), unspecified foot; H35.30 Unspecified macular degeneration; K21.9 Gastro-esophageal reflux disease without esophagitis; L12.0 Bullous pemphigoid; J44.9 Chronic obstructive pulmonary disease, unspecified; Z95.0 Presence of cardiac pacemaker; N40.1 Benign prostatic hyperplasia with lower urinary tract symptoms; Z79.899 Other long term (current) drug therapy
CPT/HCPCS: 36415; 80053; 85025

== ENCOUNTER → 2019-12-03 16:27 | Outpatient (CLI) | payer MEDICARE, BC, SELFPAY ==
[2019-08-26 13:43] VITALS: BMI 23.2
[2019-12-03 17:26] LABS: Absolute Lymphocyte Count 0.92 X10^3/uL (0.83-4.51); Absolute Neutrophil Count 5.3 X10^3/uL (2.0-7.7); Basophil# 0.06 X10^3/uL; Basophil% 0.7 % (0-1); Eosinophil# 0.74 X10^3/uL; Eosinophils% 9.2 % (0-5); Hemoglobin 13.8 g/dL (13.0-16.5); Lymphocyte # 0.92 X10^3/ul (4.0); Lymphocyte % 11.4 % (19-41); Mean Corp Hgb Conc 32.9 g/dL (32-36); Mean Corpuscular Volume 97.4 fL (80-94); Mean Platelet Vol. 10.4 fl (6.2-12.0); Monocyte# 0.98 X10^3/uL; Monocyte% 12.1 % (0-10); NRBC Flagged by Analyzer 0 % (0-5); Neutrophil # 5.32 X10^3/uL (2.7-7.7); Neutrophil % 65.9 % (47-70); Platelet Count 135 K/mm3 (150-450); RBC Distribution Width CV 14.6 % (11.6-14.6); RBC Distribution Width SD 49.8 fl (35.1-43.9); Red Blood Count 4.31 M/mm3 (4.6-6.2); White Blood Count 8.1 K/mm3 (4.4-11.0)
[2019-12-03 18:01] LABS: AST(SGOT) 21 U/L (15-37); Alanine Aminotransfer ALT/SGPT 33 U/L (16-61); Albumin, Serum 3.7 g/dL (3.2-5.0); Alkaline Phosphatase 127 U/L (45-117); Anion Gap 5 (5-15); BUN 25 mg/dL (7-18); BUN/Creat Ratio 19.2 RATIO (10-20); Calcium,Total 8.8 mg/dL (8.5-10.1); Chloride 105 mmol/L (98-107); EST Glomerular Filtration Rate 56 mL/min (>60); Est Glom Filt Rate - Afr Amer 68 mL/min (>60); Globulin 3.6 g/dL (2.2-4.2); Glucose 83 mg/dL (74-106); Potassium 4.4 mmol/L (3.5-5.1); Protein, Total 7.3 g/dL (6.4-8.2); Sodium Level 140 mmol/L (136-145); Thyroid Stim Hormone (TSH) 2.27 uIU/mL (0.358-3.74)
== END ==
PROVIDERS: PCP Family Medicine Geriatric Medicine; Visit Provider Family Medicine Geriatric Medicine
DX: N39.0 Urinary tract infection, site not specified (principal); R53.83 Other fatigue
CPT/HCPCS: 36415; 80053; 84443; 85025; 87086

== ENCOUNTER → 2019-12-10 17:10 | Outpatient (CLI) | payer MEDICARE, BC, SELFPAY ==
[2019-08-26 13:43] VITALS: BMI 23.2
== END ==
PROVIDERS: PCP Family Medicine Geriatric Medicine; Referring Provider Family Medicine Geriatric Medicine; Visit Provider Family Medicine Geriatric Medicine
DX: R50.9 Fever, unspecified (principal)
CPT/HCPCS: 87633

== ENCOUNTER → 2020-01-27 15:39 | Outpatient (CLI) | payer MEDICARE, BC, SELFPAY ==
[2019-08-26 13:43] VITALS: BMI 23.2
[2020-01-27 17:53] LABS: Absolute Lymphocyte Count 0.89 X10^3/uL (0.83-4.51); Absolute Neutrophil Count 4.5 X10^3/uL (2.0-7.7); Basophil# 0.02 X10^3/uL; Basophil% 0.3 % (0-1); Eosinophil# 0.14 X10^3/uL; Eosinophils% 2.3 % (0-5); Hematocrit 41.9 % (40-54); Hemoglobin 13.6 g/dL (13.0-16.5); Lymphocyte # 0.89 X10^3/ul (4.0); Lymphocyte % 14.9 % (19-41); Mean Corp Hgb Conc 32.5 g/dL (32-36); Mean Corpuscular Hgb 31.8 pg (27.0-32.0); Mean Corpuscular Volume 97.9 fL (80-94); Mean Platelet Vol. 10.2 fl (6.2-12.0); Monocyte# 0.44 X10^3/uL; Monocyte% 7.3 % (0-10); NRBC Flagged by Analyzer 0 % (0-5); Neutrophil # 4.47 X10^3/uL (2.7-7.7); Neutrophil % 74.7 % (47-70); Platelet Count 100 K/mm3 (150-450); RBC Distribution Width CV 15.6 % (11.6-14.6); RBC Distribution Width SD 54.8 fl (35.1-43.9); Red Blood Count 4.28 M/mm3 (4.6-6.2)
[2020-01-27 18:17] LABS: ALB/GLOB Ratio 1.1 RATIO (0.9-2.4); AST(SGOT) 34 U/L (15-37); Alanine Aminotransfer ALT/SGPT 39 U/L (16-61); Albumin, Serum 3.6 g/dL (3.2-5.0); Alkaline Phosphatase 111 U/L (45-117); Anion Gap 5 (5-15); BUN 21 mg/dL (7-18); BUN/Creat Ratio 18.6 RATIO (10-20); Calcium,Total 8.9 mg/dL (8.5-10.1); Chloride 106 mmol/L (98-107); Creatinine, Serum 1.13 mg/dL (0.70-1.30); EST Glomerular Filtration Rate 66 mL/min (>60); Est Glom Filt Rate - Afr Amer 80 mL/min (>60); Globulin 3.2 g/dL (2.2-4.2); Glucose 90 mg/dL (74-106); Potassium 4.2 mmol/L (3.5-5.1); Protein, Total 6.8 g/dL (6.4-8.2); Sodium Level 140 mmol/L (136-145)
== END ==
PROVIDERS: PCP Family Medicine Geriatric Medicine; Referring Provider Internal Medicine Rheumatology; Visit Provider Internal Medicine Rheumatology
DX: M05.70 Rheumatoid arthritis with rheumatoid factor of unspecified site without organ or systems involvement (principal); M15.9 Polyosteoarthritis, unspecified; M21.40 Flat foot [pes planus] (acquired), unspecified foot; H35.30 Unspecified macular degeneration; K21.9 Gastro-esophageal reflux disease without esophagitis; I25.10 Atherosclerotic heart disease of native coronary artery without angina pectoris; Z79.899 Other long term (current) drug therapy
CPT/HCPCS: 36415; 80053; 85025

== ENCOUNTER → 2020-02-26 15:42 | Outpatient (CLI) | payer MEDICARE, BC, SELFPAY ==
[2020-02-26 09:53] VITALS: BMI 24.1
--- NOTE | 2020-02-26 15:55 | RAD_ITS ---
STUDY: X-RAY CHEST REASON FOR EXAM: Male, 84 years old. DYSPNEA TECHNIQUE: Frontal and lateral views of the chest. COMPARISON: September 17, 2015 FINDINGS: Dual-lead pacer on the left. Sternotomy wires noted. Endovascular stent which hypogastric. The lungs are clear and expanded. There is no demonstrated pleural abnormality. Normal size heart. Normal mediastinum and chilo. Normal visualized pulmonary arteries. Normal visualized aortic arch and descending thoracic aorta. Normal visualized thoracic spine. Normal visualized ribs, clavicles, and shoulders. There is no demonstrated abnormality of the visualized soft tissue structures of the upper abdomen. RAD/Chest PA and Lateral IMPRESSION: No acute disease. Electronically Signed: Byron Wu MD at 22:47 EDT , Service support ,
[2020-02-26 16:31] LABS: BNP,B-Type NATRIURETIC PEPTIDE 295.7 pg/mL (0-100)
== END ==
PROVIDERS: PCP Family Medicine Geriatric Medicine; Referring Provider Physician Assistant Medical; Visit Provider Physician Assistant Medical
DX: R06.00 Dyspnea, unspecified (principal); I42.0 Dilated cardiomyopathy
CPT/HCPCS: 36415; 71046; 83880

== ENCOUNTER 2020-03-19 17:51 | Emergency (ER) | payer MEDICARE, BC, SELFPAY ==
[2020-02-26 09:53] VITALS: BMI 24.1
[2020-03-19 17:52] VITALS: BP 155/64; PULSE 60; RESP 16; TEMP 36.6; O2SAT 97; BMI 24.9
--- NOTE | 2020-03-19 19:05 | CT_ITS ---
STUDY: CT BRAIN WITHOUT CONTRAST REASON FOR EXAM: Male, 84 years old. HEAD AND NECK PAIN,NO KNOWN INJURY RADIATION DOSAGE (If Supplied By Facility): CTDIvol = ( 44.99 ) mGy, DLP = ( 762.36 ) mGycm TECHNIQUE: Transaxial CT imaging of the brain was performed without administration of intravenous contrast material. Individualized dose optimization techniques were used for this CT. COMPARISON: Head CT dated March 18, 2015 FINDINGS: Normal soft tissue structures. Normal calvarium. There is mild cerebral atrophy with widening of the extra-axial spaces and ventricular dilatation. There are areas of decreased attenuation within the white matter tracts of the supratentorial brain, consistent with microvascular disease changes. Normal basal ganglia and thalami. Normal brainstem. Normal cerebellum. There is no intracranial hemorrhage. There are no findings of an acute ischemic infarction. Normal visualized paranasal sinuses. CT/Brain/Head without Contrast IMPRESSION: Chronic involutional changes of the brain. Electronically Signed: Elieser Ryan MD at 19:37 EDT , Service support ,
--- NOTE | 2020-03-19 19:06 | ED.DCSUM_ITS ---
History of Present Illness Chief Complaint: Headache Informant: Patient, Significant Other Onset: Weeks - 2 or so Timing: Intermittent, Lasts - hrs, part of day Quality: Dull - aching Location: mid-frontal; no radiation Current Severity: Gone Maximum Severity: Moderate Worsened by: unk Relieved by: tylenol Associated Symptoms: Negative for: Fever, Nausea, Vomiting, Sore Throat, Sinus Pressure, Numbness, Tingling, Preceding Aura, Visual Changes, Blurred Vision - bad vision to start with, no changes, Photophobia, Visual Loss Injury: - - no fall/injury Narrative: Headaches for the past 2 weeks intermittently, and for the past 1 week he has had pain on the right side of his neck. He presents saying I have a vein in my neck that is hurting. He has no basis for cleaning this is a vein, he just points to the sternocleidomastoid and states it hurts worse when he turns his head to the right and is better when he turns his head to the left. Denies any known injury, states it hurt like this when he woke up one morning. Denies any ear symptoms or fevers. - Past Medical History (1) Biventricular implantable cardioverter-defibrillator in situ Status: Chronic (2) Anemia Status: Chronic (3) Atherosclerotic heart disease of [place] coronary artery without angina pectoris Status: Chronic (4) Benign essential hypertension Status: Chronic (5) Chronic atrial fibrillation Status: Chronic (6) Chronic obstructive lung disease Status: Chronic (7) Chronic systolic (congestive) heart failure Status: Chronic (8) Dilated cardiomyopathy Status: Chronic (9) Hyperlipidemia Status: Chronic (10) PVD (peripheral vascular disease) Status: Chronic (11) Presence of stent in coronary artery Status: Chronic Comment: PTCA/JESSY to RCA 12/22/09 (12) Thrombocytopenia Status: Chronic (13) Dementia Status: Chronic Past Medical History - Allergies and Home Meds Allergies/Adverse Reactions: Allergies ciprofloxacin Allergy (Verified 03/19/20 17:57) Other digoxin Allergy (Verified 03/19/20 17:57) Other losartan [Losartan] Allergy (Verified 03/19/20 17:57) Unknown minocycline Allergy (Verified 03/19/20 17:57) Hives rivaroxaban [From Xarelto] Allergy (Verified 03/19/20 17:57) Unknown escitalopram Adverse Reaction (Intermediate, Verified 03/19/20 17:57) mental status change amiodarone Adverse Reaction (Verified 03/19/20 17:57) Other Primary Care Physician: Anuel Garcia Chi, MD [Primary Care Provider] - Surgical History: coronary bypass surgery, total hip arthroplasty Lives: Spouse/ Significant Other Smoking Status: Former smoker - Family History Maternal Family History: Family History (Last Reviewed 08/26/19 @ 13:51 by Evelyn Fitch) Unknown No problems noted. Family History: Reports: No pertinent history Paternal Family History: Family History (Last Reviewed 08/26/19 @ 13:51 by Evelyn Fitch) Unknown No problems noted. Family History: Reports: No pertinent history Review of Systems ROS: Unable to Obtain - Limited eval due to dementia, patient does not necessarily remember everything General: Denies: Chills, Fever, Sweats Eyes: Denies: Visual changes - bilaterally, Diplopia ENT: Denies: Rhinorrhea, Sore throat Cardiovascular: Denies: Chest pain, Palpitations Respiratory: Denies: Dyspnea, Cough, Dyspnea on exertion Gastrointestinal: Denies: Abdominal pain, Nausea, Vomiting, Diarrhea, Melena, Hematochezia Genitourinary: Denies: Dysuria, Hematuria, Frequency Musculoskeletal: Reports: Neck pain. Denies: Back pain, Swelling, Extremity Pain Skin: Denies: Rash, Wounds Neurological: Reports: Headache. Denies: Weakness, Numbness Physical Exam Vital Signs/Narrative: Vital Signs Temp Pulse Resp BP Pulse Ox 03/19/20 17:52 97.9 F 60 16 155/64 H 97 Inital Vital Signs reviewed: Yes General: Well nourished, Well developed, - - nad Head: NC, AT. Negative for: Temporary Artery Tenderness Eyes: Perrl, EOMI, - - No photophobia ENT: Moist mucous membranes, No rhinorrhea, TM's clear. Negative for: Sinus tenderness Neck: Supple, No Lymphadenopathy, No JVD, No Meningismus, Paraspinal Tenderness - In the right sternocleidomastoid, the majority of the body all the way up to the mastoid process but not including the bony aspect of it. No tenderness at the insertion points distally., - - No carotid bruits. No skin changes on the right side of the neck. No venous distention throughout the head or scalp or neck. Cardiovascular: Regular rate, Regular rhythm, No murmurs Respiratory: No distress, CTA bilaterally, Chest nontender Abdomen: Soft, Nontender, Nondistended, Normal bowel sounds Back: Nontender, Normal Inspection Extremities: Nontender, No edema Skin: Normal color, No rash Neuro: Alert, Oriented x3, Cranial nerves II-XII grossly intact, Normal Strength, Normal Sensation, Normal DTR, Normal Gait Psychological: Normal affect, Normal Mood - NIH Stroke Scale 1a Level of Consciousness: 0 1b LOC Questions (Score 2 if aphasic/stupor): 0 1c LOC Commands (Only score 1st attempt): 0 2 Best Gaze (If aphasic, use reflexive mvmts.): 0 3 Visual: 0 4 Facial Palsy: 0 5 Motor Arm Right (UN = amputation/fusion): 0 5 Motor Arm Left: 0 6 Motor Leg Right: 0 6 Motor Leg Left: 0 7 Limb ataxia (Only + if out of proportion): 0 8 Sensory (Aphasia/stupor=0 or 1, coma=2): 0 9 Best Language: 0 10 Dysarthria (mute, coma=2, intubated=UN): 0 11 Extinction and Inattention (only scored if +): 0 Total Score: 0 Diagnostic/Tx/Re-eval Impressions Brain CT 03/19/20 19:05 IMPRESSION: Chronic involutional changes of the brain. Electronically Signed: Elieser Ryan MD at 19:37 EDT , Service support , 03/19/20 19:05 Brain/Head without Contrast [CT] Stat Laboratory Results 03/19/20 03/19/20 19:15 19:15 WBC 7.3 RBC 4.16 L Hgb 13.3 Hct 42.0 MCV 101.0 H MCH 32.0 MCHC 31.7 L RDW Std Deviation 56.7 H RDW Coeff of Ruslan 15.9 H Plt Count 107 L MPV 10.1 Immature Gran % (Auto) 0.800 Neut % (Auto) 76.2 H Lymph % (Auto) 9.7 L [place] % (Auto) 10.7 H Eos % (Auto) 2.1 Baso % (Auto) 0.5 Absolute Neuts (auto) 5.6 Absolute Lymphs (auto) 0.71 L Nucleated RBC % 0 Sodium 144 Potassium 5.0 Chloride 111 H Carbon Dioxide 29.0 Anion Gap 4 L BUN 23 H Creatinine 1.09 Estim Creat Clear Calc 48.85 Est GFR (MDRD) Af Amer 83 Est GFR (MDRD) Non-Af 69 BUN/Creatinine Ratio 21.1 H Glucose 69 L Calcium 9.0 - Medical Decision Making The only abnormality in the work-up above is a glucose of 69, the patient is not symptomatic from that. His CT is negative. He does not have any symptoms or findings consistent with temporal arteritis, there is no radiographic finding to explain his headaches, and his right neck pain is consistent with sternocleidomastoid pain, not arterial or venous issues. I advised patient to follow-up with his doctor, continuing to use Tylenol as needed for the headaches is reasonable, and we discussed reasons to return. They are comfortable with this overall plan. ED Disposition - Plan for ED Patient: Disposition: Home or Assisted Living Diagnosis: Intermittent headache Instructions: ED Headache Unspecified Referrals: Anuel Garcia Chi, MD [Primary Care Provider] - 3-5 Days if not improving Additional Instructions: Continuing to use Tylenol as needed for headaches is reasonable.
[2020-03-19 19:25] LABS: Absolute Lymphocyte Count 0.71 X10^3/uL (0.83-4.51); Absolute Neutrophil Count 5.6 X10^3/uL (2.0-7.7); Basophil# 0.04 X10^3/uL; Basophil% 0.5 % (0-1); Eosinophil# 0.15 X10^3/uL; Eosinophils% 2.1 % (0-5); Hemoglobin 13.3 g/dL (13.0-16.5); Lymphocyte # 0.71 X10^3/ul (4.0); Lymphocyte % 9.7 % (19-41); Mean Corp Hgb Conc 31.7 g/dL (32-36); Mean Platelet Vol. 10.1 fl (6.2-12.0); Monocyte# 0.78 X10^3/uL; Monocyte% 10.7 % (0-10); NRBC Flagged by Analyzer 0 % (0-5); Neutrophil # 5.57 X10^3/uL (2.7-7.7); Neutrophil % 76.2 % (47-70); Platelet Count 107 K/mm3 (150-450); RBC Distribution Width CV 15.9 % (11.6-14.6); RBC Distribution Width SD 56.7 fl (35.1-43.9); Red Blood Count 4.16 M/mm3 (4.6-6.2); White Blood Count 7.3 K/mm3 (4.4-11.0)
[2020-03-19 19:39] LABS: Anion Gap 4 (5-15); BUN 23 mg/dL (7-18); BUN/Creat Ratio 21.1 RATIO (10-20); Chloride 111 mmol/L (98-107); Creatinine, Serum 1.09 mg/dL (0.70-1.30); EST Glomerular Filtration Rate 69 mL/min (>60); Est Glom Filt Rate - Afr Amer 83 mL/min (>60); Estimated Creatinine Clearance 48.85 ml/min; Glucose 69 mg/dL (74-106); Sodium Level 144 mmol/L (136-145)
[2020-03-19 21:00] VITALS: RESP 16
== END 2020-03-19 21:01 | disposition home or self-care (01) ==
PROVIDERS: Emergency Provider Emergency Medicine; PCP Family Medicine Geriatric Medicine
DX: R51 Headache (principal); M54.2 Cervicalgia; I25.10 Atherosclerotic heart disease of native coronary artery without angina pectoris; I48.20 Chronic atrial fibrillation, unspecified; I11.0 Hypertensive heart disease with heart failure; I50.22 Chronic systolic (congestive) heart failure; J44.9 Chronic obstructive pulmonary disease, unspecified; I42.0 Dilated cardiomyopathy; D64.9 Anemia, unspecified; E78.5 Hyperlipidemia, unspecified; I73.9 Peripheral vascular disease, unspecified; F03.90 Unspecified dementia, unspecified severity, without behavioral disturbance, psychotic disturbance, mood disturbance, and anxiety; Z87.891 Personal history of nicotine dependence; Z95.5 Presence of coronary angioplasty implant and graft; Z95.810 Presence of automatic (implantable) cardiac defibrillator
CPT/HCPCS: 70450; 80048; 85025; 99282; A4216

== ENCOUNTER → 2020-03-30 15:02 | Outpatient (CLI) | payer MEDICARE, BC, SELFPAY ==
[2019-08-26 13:43] VITALS: BMI 23.2
[2020-03-19 17:52] VITALS: BMI 24.9
[2020-03-30 17:28] LABS: Absolute Neutrophil Count 6.6 X10^3/uL (2.0-7.7); Basophil# 0.03 X10^3/uL; Basophil% 0.4 % (0-1); Eosinophil# 0.15 X10^3/uL; Eosinophils% 1.8 % (0-5); Hematocrit 42.5 % (40-54); Hemoglobin 14.1 g/dL (13.0-16.5); Lymphocyte % 8.5 % (19-41); Mean Corp Hgb Conc 33.2 g/dL (32-36); Mean Corpuscular Hgb 34.1 pg (27.0-32.0); Mean Corpuscular Volume 102.7 fL (80-94); Mean Platelet Vol. 10.8 fl (6.2-12.0); Monocyte# 0.66 X10^3/uL; NRBC Flagged by Analyzer 0 % (0-5); Neutrophil # 6.57 X10^3/uL (2.7-7.7); Neutrophil % 79.7 % (47-70); Platelet Count 106 K/mm3 (150-450); RBC Distribution Width CV 16.2 % (11.6-14.6); RBC Distribution Width SD 58.6 fl (35.1-43.9); Red Blood Count 4.14 M/mm3 (4.6-6.2); White Blood Count 8.2 K/mm3 (4.4-11.0)
[2020-03-30 18:01] LABS: ALB/GLOB Ratio 1.1 RATIO (0.9-2.4); AST(SGOT) 23 U/L (15-37); Alanine Aminotransfer ALT/SGPT 38 U/L (16-61); Albumin, Serum 3.5 g/dL (3.2-5.0); Alkaline Phosphatase 102 U/L (45-117); Anion Gap 6 (5-15); BUN 28 mg/dL (7-18); BUN/Creat Ratio 21.4 RATIO (10-20); Calcium,Total 8.8 mg/dL (8.5-10.1); Chloride 105 mmol/L (98-107); Creatinine, Serum 1.31 mg/dL (0.70-1.30); EST Glomerular Filtration Rate 56 mL/min (>60); Est Glom Filt Rate - Afr Amer 67 mL/min (>60); Globulin 3.3 g/dL (2.2-4.2); Glucose 125 mg/dL (74-106); Protein, Total 6.8 g/dL (6.4-8.2); Sodium Level 140 mmol/L (136-145)
== END ==
PROVIDERS: PCP Family Medicine Geriatric Medicine; Visit Provider Internal Medicine Rheumatology
DX: I10 Essential (primary) hypertension (principal); E55.9 Vitamin D deficiency, unspecified; M05.70 Rheumatoid arthritis with rheumatoid factor of unspecified site without organ or systems involvement; M15.9 Polyosteoarthritis, unspecified; M21.40 Flat foot [pes planus] (acquired), unspecified foot; H53.30 Unspecified disorder of binocular vision; K21.9 Gastro-esophageal reflux disease without esophagitis; I25.10 Atherosclerotic heart disease of native coronary artery without angina pectoris; Z79.899 Other long term (current) drug therapy
CPT/HCPCS: 36415; 80053; 82306; 84443; 85025

== ENCOUNTER → 2020-04-01 | Outpatient (CLI) | payer MEDICARE, BC, SELFPAY ==
[2020-03-19 17:52] VITALS: BMI 24.9
== END | disposition home or self-care (01) ==
LOC: LABSPEC 11:56
PROVIDERS: PCP Family Medicine Geriatric Medicine; Referring Provider Family Medicine Geriatric Medicine; Visit Provider Family Medicine Geriatric Medicine
DX: R06.89 Other abnormalities of breathing (principal)
CPT/HCPCS: 87635; G2023; U0003

== ENCOUNTER → 2020-04-20 16:28 | Outpatient (CLI) | payer MEDICARE, BC, SELFPAY ==
[2020-04-14 14:28] VITALS: BMI 24.9
[2020-04-20 17:15] LABS: Absolute Lymphocyte Count 1.12 X10^3/uL (0.83-4.51); Absolute Neutrophil Count 4.9 X10^3/uL (2.0-7.7); Basophil# 0.03 X10^3/uL; Basophil% 0.4 % (0-1); Eosinophil# 0.24 X10^3/uL; Eosinophils% 3.4 % (0-5); Hematocrit 43.1 % (40-54); Hemoglobin 14.2 g/dL (13.0-16.5); Lymphocyte # 1.12 X10^3/ul (4.0); Lymphocyte % 15.8 % (19-41); Mean Corp Hgb Conc 32.9 g/dL (32-36); Mean Corpuscular Hgb 33.6 pg (27.0-32.0); Mean Corpuscular Volume 101.9 fL (80-94); Mean Platelet Vol. 10.9 fl (6.2-12.0); Monocyte# 0.75 X10^3/uL; Monocyte% 10.5 % (0-10); NRBC Flagged by Analyzer 0 % (0-5); Neutrophil # 4.91 X10^3/uL (2.7-7.7); Neutrophil % 69.1 % (47-70); Platelet Count 103 K/mm3 (150-450); RBC Distribution Width CV 14.9 % (11.6-14.6); RBC Distribution Width SD 54.7 fl (35.1-43.9); Red Blood Count 4.23 M/mm3 (4.6-6.2); White Blood Count 7.1 K/mm3 (4.4-11.0)
[2020-04-20 17:31] LABS: BNP,B-Type NATRIURETIC PEPTIDE 589.1 pg/mL (0-100)
[2020-04-20 17:34] LABS: ALB/GLOB Ratio 1.2 RATIO (0.9-2.4); AST(SGOT) 28 U/L (15-37); Alanine Aminotransfer ALT/SGPT 30 U/L (16-61); Albumin, Serum 3.4 g/dL (3.2-5.0); Alkaline Phosphatase 103 U/L (45-117); Anion Gap 3 (5-15); BUN 23 mg/dL (7-18); BUN/Creat Ratio 19.7 RATIO (10-20); Chloride 112 mmol/L (98-107); Creatinine, Serum 1.17 mg/dL (0.70-1.30); EST Glomerular Filtration Rate 63 mL/min (>60); Est Glom Filt Rate - Afr Amer 77 mL/min (>60); Globulin 2.9 g/dL (2.2-4.2); Glucose 79 mg/dL (74-106); Potassium 4.2 mmol/L (3.5-5.1); Protein, Total 6.3 g/dL (6.4-8.2); Sodium Level 143 mmol/L (136-145)
== END ==
PROVIDERS: PCP Family Medicine Geriatric Medicine; Visit Provider Family Medicine Geriatric Medicine
DX: I10 Essential (primary) hypertension (principal); R06.02 Shortness of breath
CPT/HCPCS: 36415; 80053; 83880; 85025

== ENCOUNTER 2020-04-20 17:16 | Emergency (ER) | payer MEDICARE, BC, SELFPAY ==
[2020-04-14 14:28] VITALS: BMI 24.9
[2020-04-20] VITALS (7 sets, daily range): BP systolic 137–178; BP diastolic 80–113; PULSE 60; RESP 16–23; TEMP 36.6; O2SAT 95–97; BMI 23.8
--- NOTE | 2020-04-20 17:48 | CT_ITS ---
STUDY: CT BRAIN WITHOUT CONTRAST REASON FOR EXAM: Male, 85 years old. Post status change since 1600 hours today. RADIATION DOSAGE (If Supplied By Facility): CTDIvol = ( 44.99 ) mGy, DLP = ( 796.11 ) mGycm TECHNIQUE: Transaxial CT imaging of the brain was performed without administration of intravenous contrast material. Individualized dose optimization techniques were used for this CT. COMPARISON: March 19, 2020 April 17, 2015. FINDINGS: Normal soft tissue structures. Normal calvarium. There is mild cerebral atrophy with widening of the extra-axial spaces and ventricular dilatation. There are areas of decreased attenuation within the white matter tracts of the supratentorial brain, consistent with microvascular disease changes. Normal basal ganglia and thalami. Normal brainstem. Normal cerebellum. There is no intracranial hemorrhage. There are no findings of an acute ischemic infarction. Normal visualized paranasal sinuses. CT/Brain/Head without Contrast IMPRESSION: Chronic involutional changes without evidence of acute intracranial or calvarial abnormality. There is no significant interval change. Electronically Signed: Jaleel Guerrero DO at 18:28 EDT Tel [phone], Service support ,
--- NOTE | 2020-04-20 17:48 | EKG12_ITS ---
Test Reason : LOC Blood Pressure : / mmHG Vent. Rate : 060 BPM Atrial Rate : 060 BPM P-R Int : 000 ms QRS Dur : 142 ms QT Int : 520 ms P-R-T Axes : 000 267 107 degrees QTc Int : 520 ms Ventricular-paced rhythm Biventricular pacemaker detected Abnormal ECG Confirmed by JOSE ROBERTO ODONNELL, CAMRON ([id number]), editorial writer EDDI DORADO ([id number]) on 04/22/2020 1:08:02 PM Referred By: LOIS Confirmed By:CAMRON CID MD
--- NOTE | 2020-04-20 17:49 | ED.DCSUM_ITS ---
History of Present Illness Chief Complaint: Alt LOC Informant: Patient Onset: Today Narrative: Patient brought to the emergency room secondary to altered mental status. Patient was seen at Dr. Garcia's office today for nausea and vomiting. He has chronic right neck pain that causes headaches. Per documentation the patient received Toradol, Rocephin, Phenergan, and IV fluids. states that she left to run some errands and when she came back patient was disoriented and altered. He was supposed to be drinking contrast for a CT of his abdomen and pelvis but because of his altered mental status was brought to the emergency room. - Past Medical History (1) Anemia Status: Chronic (2) Atherosclerotic heart disease of [place] coronary artery without angina pectoris Status: Chronic (3) Benign essential hypertension Status: Chronic (4) Biventricular implantable cardioverter-defibrillator in situ Status: Chronic (5) Chronic atrial fibrillation Status: Chronic (6) Chronic obstructive lung disease Status: Chronic (7) Chronic systolic (congestive) heart failure Status: Chronic (8) Dementia Status: Chronic (9) Dilated cardiomyopathy Status: Chronic (10) Essential hypertension Status: Chronic (11) History of coronary artery bypass surgery Status: Chronic Comment: CABG x4- CARRILLO to LAD, SVG to LCX, SVG to Lateral CX, and SVG to PDA 10/18/12 (12) Hyperlipidemia Status: Chronic (13) PVD (peripheral vascular disease) Status: Chronic Past Medical History - Allergies and Home Meds Allergies/Adverse Reactions: Allergies ciprofloxacin Allergy (Verified 03/19/20 17:57) Other digoxin Allergy (Verified 03/19/20 17:57) Other losartan [Losartan] Allergy (Verified 03/19/20 17:57) Unknown minocycline Allergy (Verified 03/19/20 17:57) Hives rivaroxaban [From Xarelto] Allergy (Verified 03/19/20 17:57) Unknown escitalopram Adverse Reaction (Intermediate, Verified 03/19/20 17:57) mental status change amiodarone Adverse Reaction (Verified 03/19/20 17:57) Other Primary Care Physician: Anuel Garcia Chi, MD [Primary Care Provider] - Prior records reviewed: Yes Surgical History: coronary bypass surgery, total hip arthroplasty Lives: Spouse/ Significant Other Smoking Status: Former smoker - Family History Maternal Family History: Family History (Last Reviewed 08/26/19 @ 13:51 by Evelyn Fitch) Unknown No problems noted. Family History: Reports: No pertinent history Paternal Family History: Family History (Last Reviewed 08/26/19 @ 13:51 by Evelyn Fitch) Unknown No problems noted. Family History: Reports: No pertinent history Review of Systems General: Denies: Chills, Fever Eyes: Denies: Visual changes - bilaterally ENT: Denies: Bilateral ear pain Cardiovascular: Denies: Chest pain Respiratory: Denies: Dyspnea Gastrointestinal: Reports: Abdominal pain. Denies: Vomiting Musculoskeletal: Reports: Neck pain Skin: Denies: Rash Neurological: Reports: Headache Hematologic: Denies: Easy bruising, Easy bleeding Allergy: Denies: Uticaria Physical Exam Vital Signs/Narrative: Vital Signs Temp Pulse Resp BP Pulse Ox 04/20/20 17:18 97.8 F 60 18 160/113 H 97 Inital Vital Signs reviewed: Yes General: Well nourished, Well developed Head: Normocephalic ENT: Moist mucous membranes Neck: Supple Cardiovascular: Regular rate, Regular rhythm Respiratory: No distress, CTA bilaterally Abdomen: Soft, Nontender, Hypoactive bowel sounds Extremities: Nontender Skin: Normal color, No rash Neurological: Alert. Negative for: Oriented x3 - Oriented x1. No focal motor deficits. Patient has intermittent slurred speech, but at times speech is clear. At the time of my exam symptoms appear to be improving from when nursing first saw him. Psychological: Normal affect Diagnostic/Tx/Re-eval Impressions Brain CT 04/20/20 17:48 IMPRESSION: Chronic involutional changes without evidence of acute intracranial or calvarial abnormality. There is no significant interval change. Electronically Signed: Jaleel Guerrero DO at 18:28 EDT Tel [phone], Service support , Head/Neck CTA 04/20/20 18:48 IMPRESSION: 1. Atretic P1 segments of the bilateral posterior cerebral arteries. The P2 and visualized P3 segments are supplied via the bilateral patent posterior communicating arteries. 2. Otherwise normal [place]. 3. Bilateral hemodynamically insignificant, plaque. Electronically Signed: Jaleel Guerrero DO at 19:43 EDT Tel [phone], Service support , Abdomen/Pelvis CT 04/20/20 18:49 IMPRESSION: 1. Abdominal aortic aneurysm with aortobiiliac stent grafts. Question minimal endoleak. This is difficult to ascertain with certainty in the absence of noncontrast imaging. 2. No other significant interval change when compared to the prior exam. Electronically Signed: Jaleel Guerrero DO at 19:51 EDT Tel [phone], Service support , ADDENDUM: 04/20/20210904/20/20 17:48 Brain/Head without Contrast [CT] Stat 04/20/20 18:48 CTA Head AND Neck W/ Contrast [CT] Stat 04/20/20 18:49 Abdomen/Pelvis W IV Cont ONLY [CT] Stat Laboratory Results 04/20/20 04/20/20 04/20/20 17:28 18:00 18:00 WBC 8.6 RBC 3.96 L Hgb 13.2 Hct 39.5 L MCV 99.7 H MCH 33.3 H MCHC 33.4 RDW Std Deviation 53.7 H RDW Coeff of [place] 14.9 H Plt Count 78 L MPV 11.2 Immature Gran % (Auto) 1.000 H Neut % (Auto) 81.0 H Lymph % (Auto) 7.3 L [place] % (Auto) 7.7 Eos % (Auto) 2.7 Baso % (Auto) 0.3 Absolute Neuts (auto) 7.0 Absolute Lymphs (auto) 0.63 L Nucleated RBC % 0.2 Platelet Estimate MOD DEC RBC Morphology NORM C+C Sodium 141 Potassium 4.7 Chloride 109 H Carbon Dioxide 25.0 Anion Gap 7 BUN 24 H Creatinine 1.21 Estim Creat Clear Calc 43.25 Est GFR (MDRD) Af Amer 74 Est GFR (MDRD) Non-Af 61 BUN/Creatinine Ratio 19.8 Glucose 92 Calcium 8.3 L Total Bilirubin 0.80 Direct Bilirubin 0.20 AST 70 H ALT 52 Alkaline Phosphatase 113 Total Protein 6.7 Albumin 3.5 Globulin 3.2 Lipase 104 Urine Color Urine Clarity Urine pH Ur Specific [place] Urine Protein Urine Glucose (UA) Urine Ketones Urine Occult Blood Urine Nitrite Urine Bilirubin Urine Urobilinogen Ur Leukocyte Esterase Urine RBC Urine WBC Ur Squamous Epith Cells Urine Bacteria Urine Mucus POC Glucose 86 04/20/20 20:25 WBC RBC Hgb Hct MCV MCH MCHC RDW Std Deviation RDW Coeff of [place] Plt Count MPV Immature Gran % (Auto) Neut % (Auto) Lymph % (Auto) [place] % (Auto) Eos % (Auto) Baso % (Auto) Absolute Neuts (auto) Absolute Lymphs (auto) Nucleated RBC % Platelet Estimate RBC Morphology Sodium Potassium Chloride Carbon Dioxide Anion Gap BUN Creatinine Estim Creat Clear Calc Est GFR (MDRD) Af Amer Est GFR (MDRD) Non-Af BUN/Creatinine Ratio Glucose Calcium Total Bilirubin Direct Bilirubin AST ALT Alkaline Phosphatase Total Protein Albumin Globulin Lipase Urine Color Yellow Urine Clarity Clear Urine pH 6.0 Ur Specific [place] 1.010 Urine Protein 30 H Urine Glucose (UA) Normal Urine Ketones Negative Urine Occult Blood 150 H Urine Nitrite Negative Urine Bilirubin Negative Urine Urobilinogen Normal Ur Leukocyte Esterase Negative Urine RBC 0-5 SEEN Urine WBC 0-5 SEEN Ur Squamous Epith Cells 0 SEEN Urine Bacteria 0 SEEN Urine Mucus 0 SEEN POC Glucose - EKG Initial EKG Interpretation: - - Paced at 60. No acute ischemia. - Medical Decision Making Patient presents from CT with change in mental status. Patient's mental status seems to be quickly improving. My suspicion is this is secondary to Phenergan. Work-up here is grossly unremarkable. The CT scan was read as possible endoleak from his prior AAA stent. When I spoke with the radiologist he states he cannot completely rule it out but it appears unchanged when compared to prior study. Patient has no abdominal pain on exam for me. At this time is comfortable taking the patient home. ED Disposition - Plan for ED Patient: Disposition: Home or Assisted Living Diagnosis: Adverse drug reaction Instructions: ED Drug React Adverse Other Referrals: Anuel Garcia Chi, MD [Primary Care Provider] - 3-5 Days
[2020-04-20 17:50] LABS: Bedside Glucose 86 mg/dL (70-110)
[2020-04-20] MEDS: 0.9% Normal Saline 1,000 ML 150 ML IV (18:01)
[2020-04-20 18:25] LABS: Absolute Lymphocyte Count 0.63 X10^3/uL (0.83-4.51); Basophil# 0.03 X10^3/uL; Basophil% 0.3 % (0-1); Eosinophil# 0.23 X10^3/uL; Eosinophils% 2.7 % (0-5); Hematocrit 39.5 % (40-54); Hemoglobin 13.2 g/dL (13.0-16.5); Lymphocyte # 0.63 X10^3/ul (4.0); Lymphocyte % 7.3 % (19-41); Mean Corp Hgb Conc 33.4 g/dL (32-36); Mean Corpuscular Hgb 33.3 pg (27.0-32.0); Mean Corpuscular Volume 99.7 fL (80-94); Mean Platelet Vol. 11.2 fl (6.2-12.0); Monocyte# 0.66 X10^3/uL; Monocyte% 7.7 % (0-10); NRBC Flagged by Analyzer 0.2 % (0-5); Neutrophil # 6.96 X10^3/uL (2.7-7.7); POSITIVE COUNT YES; Platelet Count 78 K/mm3 (150-450); RBC Distribution Width CV 14.9 % (11.6-14.6); RBC Distribution Width SD 53.7 fl (35.1-43.9); Red Blood Count 3.96 M/mm3 (4.6-6.2); White Blood Count 8.6 K/mm3 (4.4-11.0)
--- NOTE | 2020-04-20 18:48 | CT_ITS ---
STUDY: CTA HEAD AND NECK WITH CONTRAST REASON FOR EXAM: Male, 85 years old. Altered mental status. Abdominal pain. RADIATION DOSAGE (If Supplied By Facility): CTDIvol = ( 48.12 ) mGy, DLP = ( 650.92 ) mGycm TECHNIQUE: CT angiography was performed with a multi-detector CT scanner. Data acquisition was obtained from the skull base through the vertex following intravenous administration of 100 CC ISOVUE 370. MIP images were reconstructed from the axial data set. Post-processing of the angiographic images was performed, with multiplanar reformation and 3D reconstruction. Individualized dose optimization techniques were used for this CT. COMPARISON: CT of the brain, April 20, 2020. FINDINGS: Normal bilateral petrous carotid arteries. There is calcified plaque formation of the right cavernous carotid artery, without a cross-sectional luminal stenosis. There is calcified plaque formation of the left cavernous carotid artery, without a cross-sectional luminal stenosis. Normal right A1 segments of the anterior cerebral artery. Normal left A1 segments of the anterior cerebral artery. Normal intact anterior communicating artery (ACOM). Normal bilateral A2 segments of the anterior cerebral arteries. Normal right M1 and M2 segments of the middle cerebral arteries, with a normal M1 bifurcation. Normal left M1 and M2 segments of the middle cerebral arteries, with a normal M1 bifurcation. Normal right posterior communicating artery (PCOM). Normal left posterior communicating artery (PCOM). Normal bilateral vertebral arteries. Normal basilar artery with a normal basilar bifurcation. The visualized bilateral superior cerebellar (SCA) arteries are normal. There is atresia of the P1 segments of the bilateral posterior cerebral arteries. The P2 and visualized P3 segments of the posterior cerebral arteries are patent and supplied via the posterior communicating arteries.. There is no demonstrated aneurysm of the [place] of [place]. There is no demonstrated abnormality of the visualized brain. AORTIC ARCH: The aortic arch without aneurysm or dissection. Normal origins of the brachiocephalic, left common carotid, and left subclavian arteries. RIGHT CAROTID ARTERIES: Is minimal calcific plaque along the course of the right common carotid artery (CCA) without stenosis. There is a small amount of calcified and noncalcified plaque immediately in the mid CCA with less than 50% stenosis.. There is a small focal calcification in the wall of the carotid bulb without stenosis. Normal origin of the right internal carotid (ICA) artery without a hemodynamically significant stenosis. Multiple small focal calcifications along the course of the visualized cervical portion of the right internal carotid artery without stenosis. Normal origin of the right external carotid artery (ECA). LEFT CAROTID ARTERIES: There is scattered calcific plaque along the course of the left common carotid artery (CCA) without stenosis.. Small calcific plaque in the posterior wall of the carotid bulb without stenosis. Normal origin of the left internal carotid (ICA) artery without a hemodynamically significant stenosis. Areas of calcific plaque involving the distal portion on the visualized cervical portion of the left internal carotid artery without significant stenosis. Normal origin of the left external carotid artery (ECA). VERTEBRAL ARTERIES: There is minimal atherosclerotic changes of the intracranial vertebral arteries which appear otherwise unremarkable. Marked degenerative changes of the cervical spine. There is marked enlargement of the right thyroid with central area of heterogeneity and focal calcifications. CT/CTA Head AND Neck W/ Contrast IMPRESSION: 1. Atretic P1 segments of the bilateral posterior cerebral arteries. The P2 and visualized P3 segments are supplied via the bilateral patent posterior communicating arteries. 2. Otherwise normal [place] of [place]. 3. Bilateral hemodynamically insignificant, plaque. Electronically Signed: Jaleel Guerrero DO at 19:43 EDT Tel [phone], Service support ,
--- NOTE | 2020-04-20 18:49 | CT_ITS ---
STUDY: CT ABDOMEN AND PELVIS WITHOUT CONTRAST REASON FOR EXAM: Male, 85 years old. Abdominal pain. Mental status. RADIATION DOSAGE (If Supplied By Facility): CTDIvol = ( 21.01 ) mGy, DLP = ( 1271.52 ) mGycm TECHNIQUE: Transaxial images were obtained from the dome of the diaphragm to the symphysis pubis without oral contrast, and without intravenous contrast. Sagittal and coronal images were reconstructed. Individualized dose optimization techniques were used for this CT. COMPARISON: CTA of the abdomen and pelvis, June 06, 2019 FINDINGS: There are small bilateral pleural effusions with atelectatic changes at the lung bases. There is no focal mass or infiltrate. The heart is enlarged. Pacer leads are seen in the right heart and along the posterior left ventricular surface. There is evidence of median sternotomy. There is a retrocardiac hiatal hernia. Normal liver. There are layering gallstones in the gallbladder fundus without wall thickening or inflammatory change. No extrahepatic ductal dilatation. Normal spleen. Normal pancreas. Normal bilateral adrenal glands. Small cyst lower pole of an otherwise normal right kidney. Normal left kidney. Normal left kidney. Hiatal hernia. The distal stomach is unremarkable. Normal small intestine. There is diverticulosis of sigmoid colon without acute inflammatory change. The proximal colon appears normal. The appendix is visualized and appears normal. There is a large abdominal aortic aneurysm with evidence of a patent the aorto biiliac graft. Question mild enhancement within the aneurysm suggesting possible contrast leak. There appears to be a segment of the upper aorta were there is absence of stenting. This measures approximately 3.5 cm in length. There is mild dilatation of the distal iliac stents. Ticket laterally on the left which measures 2.5 cm in diameter. Normal inferior vena cava. Normal retroperitoneum. The deep bladder contents are partially obscured due to scatter artifact from bilateral hips. The bladder appears grossly normal. The prostate is mildly enlarged. No pelvic lymphadenopathy. No free air or free fluid is seen within the peritoneal cavity. There is an umbilical hernia of omental fat. There are bilateral inguinal hernias. The right contains nonobstructed small bowel. The left contains nonobstructed colon. There are degenerative changes of the lumbar spine unchanged from the prior exam. CT/Abdomen/Pelvis W IV Cont ONLY IMPRESSION: 1. Abdominal aortic aneurysm with aortobiiliac stent grafts. Question minimal endoleak. This is difficult to ascertain with certainty in the absence of noncontrast imaging. 2. No other significant interval change when compared to the prior exam. Electronically Signed: Jaleel Guerrero DO at 19:51 EDT Tel [phone], Service support ,
[2020-04-20 18:53] LABS: AST(SGOT) 70 U/L (15-37); Alanine Aminotransfer ALT/SGPT 52 U/L (16-61); Albumin, Serum 3.5 g/dL (3.2-5.0); Alkaline Phosphatase 113 U/L (45-117); Anion Gap 7 (5-15); BUN 24 mg/dL (7-18); BUN/Creat Ratio 19.8 RATIO (10-20); Calcium,Total 8.3 mg/dL (8.5-10.1); Chloride 109 mmol/L (98-107); Creatinine, Serum 1.21 mg/dL (0.70-1.30); EST Glomerular Filtration Rate 61 mL/min (>60); Est Glom Filt Rate - Afr Amer 74 mL/min (>60); Estimated Creatinine Clearance 43.25 ml/min; Globulin 3.2 g/dL (2.2-4.2); Glucose 92 mg/dL (74-106); Lipase 104 U/L (73-393); Potassium 4.7 mmol/L (3.5-5.1); Protein, Total 6.7 g/dL (6.4-8.2); Sodium Level 141 mmol/L (136-145)
[2020-04-20 19:05] LABS: Differential Indicated SCAN CRITERIA MET
[2020-04-20 19:24] LABS: Platelet Estimate MOD DEC (ADEQ); Red Cell Morphology NORM C+C NORMAL (NORM C&C)
[2020-04-20 20:31] LABS: Bacteria 0 SEEN /hpf (None Seen); Mucous, Urine 0 SEEN /hpf (<or=2+); Squamous Epithelial Cells - UA 0 SEEN /hpf (0-5)
[2020-04-20] MEDS: Ondansetron 4 MG/2 ML Vial IV (20:52)
[2020-04-20 21:00] LABS: Red Blood Cells-Urine 0-5 SEEN /hpf (0-5); White Blood Cells 0-5 SEEN /hpf (0-5)
[2020-04-20 21:03] LABS: Color, Urine Yellow (Yellow); Glucose, Dipstick Normal (Normal); Ketone-Dipstick Negative (Negative); Leukocyte Esterase-Dipstick Negative /ul (Negative); Nitrite-Dipstick Negative (Negative); Occult Blood-Urine 150 /ul (Negative); Protein-Dipstick 30 mg/dl (Negative); Urine Bilirubin Dipstick Negative (Negative); Urine Clarity Clear (Clear); Urine Urobilinogen Normal (Normal)
== END 2020-04-20 22:07 | disposition home or self-care (01) ==
PROVIDERS: Emergency Provider Emergency Medicine; PCP Family Medicine Geriatric Medicine
DX: R41.82 Altered mental status, unspecified (principal); T42.6X5A Adverse effect of other antiepileptic and sedative-hypnotic drugs, initial encounter; I25.10 Atherosclerotic heart disease of native coronary artery without angina pectoris; I10 Essential (primary) hypertension; R06.02 Shortness of breath; Z95.1 Presence of aortocoronary bypass graft; Z95.810 Presence of automatic (implantable) cardiac defibrillator; Z87.891 Personal history of nicotine dependence
CPT/HCPCS: 36415; 70450; 70496; 70498; 74177; 80048; 80053; 80076; 81001; 82962; 83690; 83880; 85025; 93005; 96374; 99283; J7030; J7050; Q9967; A4216; J2405

== ENCOUNTER → 2020-04-27 17:21 | Outpatient (CLI) | payer MEDICARE, BC, SELFPAY ==
[2020-04-20 17:18] VITALS: BMI 23.8
--- NOTE | 2020-04-27 17:24 | CT_ITS ---
STUDY: CTA ABDOMEN AND PELVIS REASON FOR EXAM: Male, 85 years old. AAA R/O BLEED, ABNORMAL VENOUS CT ON 04-20, HX OF pacemaker, 4 vessel CABG, bilateral hip replacements, AAA stent grafting RADIATION DOSAGE (If Supplied By Facility): CTDIvol = ( 34.97 ) mGy, DLP = ( 674.89 ) mGycm. Individualized dose optimization techniques were used for this CT.? TECHNIQUE: 2.5 mm helical cuts were performed through the abdomen and pelvis with 100 mL Isovue 370 contrast. MPR performed. COMPARISON: 04/20/2020 FINDINGS: There is aneurysmal dilatation of the lower thoracic, upper abdominal aorta unchanged from the previous examination. There is wall thickening but no significant stenosis is noted. A previously noted stent graft has been placed into the supra renal aorta, the stent ends just below the renal artery origins. No endoleak or extravasation of contrast outside the lumen of the [place] aorta is noted. Additionally, there are also bilateral iliac stents which have been placed. The stents are widely patent. Between the distal end of the aortic stent and the common iliac stents have been placed and there is a stable aneurysm of the [place] aorta with extensive mural thrombus and patent lumen. The periphery of the [place] aorta measures 7.5 x 5.6 cm. This remains unchanged from the previous examination. The aortic stents are widely patent although there is stable aneurysmal dilatation of the distal common iliac arteries. Again, there is no evidence of intraperitoneal, retroperitoneal, or pelvic fluid or hemorrhage. Calcifications are noted at the origins of the celiac axis, SMA, and both renal arteries but no significant stenosis is noted. Source images show multiple tiny gallstones without CT evidence of acute cholecystitis. Other solid organs are unremarkable. No free intraperitoneal fluid, air, or suspicious adenopathy. Colonic diverticulosis is noted. There are degenerative bony changes. Bilateral hip replacements are free of complication. There are fat and bowel-containing bilateral inguinal hernias unchanged from the previous study CT/CT ANGIO ABD&PEL W/O&W/DYE IMPRESSION: Little significant interval change in the appearance of a known, infrarenal abdominal aortic aneurysm measuring 7.5 x 5.9 cm. No endoleak or extravasation of contrast outside the lumen of the [place] aorta is noted. Widely patent suprarenal aortic stent, patent bilateral iliac stents Calcifications of the origins of the celiac axis, SMA, and both renal arteries Stable bilateral fat and small bowel containing inguinal hernias Extensive degenerative bony changes, replaced hip joints free of complication Electronically Signed: Rich Rose MD at 12:08 EDT , Service support ,
== END ==
PROVIDERS: PCP Family Medicine Geriatric Medicine; Referring Provider Family Medicine Geriatric Medicine; Visit Provider Family Medicine Geriatric Medicine
DX: I71.4 Abdominal aortic aneurysm, without rupture (principal)
CPT/HCPCS: 74174; Q9967

== ENCOUNTER → 2020-05-07 14:38 | Outpatient (CLI) | payer MEDICARE, BC, SELFPAY ==
[2020-05-07 13:54] VITALS: BMI 23.8
--- NOTE | 2020-05-07 14:39 | RAD_ITS ---
STUDY: X-RAY - CERVICAL SPINE REASON FOR EXAM: Male, 85 years old. Neck pain TECHNIQUE: 3 view(s) of the cervical spine were obtained. COMPARISON: None FINDINGS: There are degenerative changes of the anterior atlantoaxial articulation. Normal odontoid process. Normal cervical lordosis. There is multi-level endplate spondylosis. There is multi-level degenerative disc disease with multilevel disc space narrowing. Normal visualized intervertebral neuroforamina. The soft tissue structures are unremarkable. RAD/Cerv Spine 2 or 3 Views IMPRESSION: Multilevel disc space narrowing and spondylosis. Electronically Signed: Jani Bills, at 12:16 EDT , Service support ,
== END ==
PROVIDERS: PCP Family Medicine Geriatric Medicine; Referring Provider Chiropractor; Visit Provider Chiropractor
DX: M54.2 Cervicalgia (principal); M99.01 Segmental and somatic dysfunction of cervical region; M06.9 Rheumatoid arthritis, unspecified
CPT/HCPCS: 72040

== ENCOUNTER → 2020-05-18 15:52 | Outpatient (CLI) | payer MEDICARE, BC, SELFPAY ==
[2020-05-12 14:03] VITALS: BMI 23.8
[2020-05-18 18:10] LABS: Absolute Lymphocyte Count 0.55 X10^3/uL (0.83-4.51); Absolute Neutrophil Count 4.4 X10^3/uL (2.0-7.7); Basophil# 0.04 X10^3/uL; Basophil% 0.7 % (0-1); Eosinophil# 0.31 X10^3/uL; Eosinophils% 5.4 % (0-5); Hematocrit 39.2 % (40-54); Hemoglobin 12.8 g/dL (13.0-16.5); Lymphocyte # 0.55 X10^3/ul (4.0); Lymphocyte % 9.6 % (19-41); Mean Corp Hgb Conc 32.7 g/dL (32-36); Mean Platelet Vol. 10.8 fl (6.2-12.0); Monocyte# 0.38 X10^3/uL; Monocyte% 6.7 % (0-10); NRBC Flagged by Analyzer 0 % (0-5); Neutrophil # 4.37 X10^3/uL (2.7-7.7); Neutrophil % 76.7 % (47-70); POSITIVE DIFFERENTIAL YES; Platelet Count 113 K/mm3 (150-450); RBC Distribution Width SD 54.4 fl (35.1-43.9); Red Blood Count 3.88 M/mm3 (4.6-6.2); White Blood Count 5.7 K/mm3 (4.4-11.0)
[2020-05-18 18:14] LABS: Differential Indicated SCAN CRITERIA MET
[2020-05-18 18:31] LABS: Differential Comment SCANNED
[2020-05-18 18:44] LABS: ALB/GLOB Ratio 1.1 RATIO (0.9-2.4); AST(SGOT) 24 U/L (15-37); Alanine Aminotransfer ALT/SGPT 23 U/L (16-61); Albumin, Serum 3.5 g/dL (3.2-5.0); Alkaline Phosphatase 112 U/L (45-117); Anion Gap 6 (5-15); BUN 17 mg/dL (7-18); Calcium,Total 8.6 mg/dL (8.5-10.1); Chloride 104 mmol/L (98-107); Creatinine, Serum 1.13 mg/dL (0.70-1.30); EST Glomerular Filtration Rate 66 mL/min (>60); Est Glom Filt Rate - Afr Amer 80 mL/min (>60); Globulin 3.2 g/dL (2.2-4.2); Glucose 131 mg/dL (74-106); Potassium 4.3 mmol/L (3.5-5.1); Protein, Total 6.7 g/dL (6.4-8.2); Sodium Level 138 mmol/L (136-145)
== END ==
PROVIDERS: PCP Family Medicine Geriatric Medicine; Referring Provider Internal Medicine Rheumatology; Visit Provider Internal Medicine Rheumatology
DX: M05.70 Rheumatoid arthritis with rheumatoid factor of unspecified site without organ or systems involvement (principal); M15.9 Polyosteoarthritis, unspecified; M21.40 Flat foot [pes planus] (acquired), unspecified foot; H35.30 Unspecified macular degeneration; K21.9 Gastro-esophageal reflux disease without esophagitis; I25.10 Atherosclerotic heart disease of native coronary artery without angina pectoris; Z79.899 Other long term (current) drug therapy
CPT/HCPCS: 36415; 80053; 85025

== ENCOUNTER → 2020-07-02 14:04 | Outpatient (CLI) | payer MEDICARE, BC, SELFPAY ==
[2020-05-12 14:03] VITALS: BMI 23.8
[2020-07-02 15:06] LABS: Absolute Lymphocyte Count 0.71 X10^3/uL (0.83-4.51); Absolute Neutrophil Count 4.5 X10^3/uL (2.0-7.7); Basophil# 0.03 X10^3/uL; Basophil% 0.5 % (0-1); Eosinophil# 0.14 X10^3/uL; Eosinophils% 2.3 % (0-5); Hematocrit 38.9 % (40-54); Hemoglobin 13.2 g/dL (13.0-16.5); Lymphocyte # 0.71 X10^3/ul (4.0); Lymphocyte % 11.6 % (19-41); Mean Corp Hgb Conc 33.9 g/dL (32-36); Mean Corpuscular Hgb 33.7 pg (27.0-32.0); Mean Corpuscular Volume 99.2 fL (80-94); Monocyte# 0.75 X10^3/uL; Monocyte% 12.3 % (0-10); NRBC Flagged by Analyzer 0 % (0-5); Neutrophil # 4.45 X10^3/uL (2.7-7.7); Neutrophil % 72.6 % (47-70); Platelet Count 119 K/mm3 (150-450); RBC Distribution Width CV 14.4 % (11.6-14.6); RBC Distribution Width SD 49.8 fl (35.1-43.9); Red Blood Count 3.92 M/mm3 (4.6-6.2); White Blood Count 6.1 K/mm3 (4.4-11.0)
[2020-07-02 15:15] LABS: Vitamin D,25 Hydroxy 60.6 ng/mL
[2020-07-02 15:23] LABS: ALB/GLOB Ratio 1.2 RATIO (0.9-2.4); AST(SGOT) 18 U/L (15-37); Alanine Aminotransfer ALT/SGPT 21 U/L (16-61); Albumin, Serum 3.7 g/dL (3.2-5.0); Alkaline Phosphatase 118 U/L (45-117); Anion Gap 7 (5-15); BUN 16 mg/dL (7-18); Calcium,Total 8.6 mg/dL (8.5-10.1); Chloride 108 mmol/L (98-107); Creatinine, Serum 1.33 mg/dL (0.70-1.30); EST Glomerular Filtration Rate 55 mL/min (>60); Est Glom Filt Rate - Afr Amer 66 mL/min (>60); Globulin 3.1 g/dL (2.2-4.2); Glucose 126 mg/dL (74-106); Protein, Total 6.8 g/dL (6.4-8.2); Sodium Level 139 mmol/L (136-145); Thyroid Stim Hormone (TSH) 1.68 uIU/mL (0.358-3.74)
== END ==
PROVIDERS: PCP Family Medicine Geriatric Medicine; Visit Provider Family Medicine Geriatric Medicine
DX: E55.9 Vitamin D deficiency, unspecified (principal); I10 Essential (primary) hypertension
CPT/HCPCS: 36415; 80053; 82306; 84443; 85025

== ENCOUNTER → 2020-07-06 17:45 | Outpatient (CLI) | payer MEDICARE, BC, SELFPAY ==
[2020-05-12 14:03] VITALS: BMI 23.8
== END ==
PROVIDERS: PCP Family Medicine Geriatric Medicine; Referring Provider Family Medicine Geriatric Medicine; Visit Provider Family Medicine Geriatric Medicine
DX: R06.02 Shortness of breath (principal)
CPT/HCPCS: 87635; C9803; U0003

== ENCOUNTER → 2020-08-10 15:42 | Outpatient (CLI) | payer MEDICARE, BC, SELFPAY ==
[2020-05-12 14:03] VITALS: BMI 23.8
[2020-08-10 17:56] LABS: ALB/GLOB Ratio 1.1 RATIO (0.9-2.4); AST(SGOT) 27 U/L (15-37); Alanine Aminotransfer ALT/SGPT 26 U/L (16-61); Albumin, Serum 3.8 g/dL (3.2-5.0); Alkaline Phosphatase 135 U/L (45-117); Anion Gap 7 (5-15); BUN 24 mg/dL (7-18); BUN/Creat Ratio 17.6 RATIO (10-20); Calcium,Total 9.3 mg/dL (8.5-10.1); Chloride 107 mmol/L (98-107); Creatinine, Serum 1.36 mg/dL (0.70-1.30); EST Glomerular Filtration Rate 53 mL/min (>60); Est Glom Filt Rate - Afr Amer 64 mL/min (>60); Globulin 3.4 g/dL (2.2-4.2); Glucose 98 mg/dL (74-106); Potassium 4.2 mmol/L (3.5-5.1); Protein, Total 7.2 g/dL (6.4-8.2); Sodium Level 139 mmol/L (136-145)
== END ==
PROVIDERS: PCP Family Medicine Geriatric Medicine; Referring Provider Internal Medicine Rheumatology; Visit Provider Internal Medicine Rheumatology
DX: M05.70 Rheumatoid arthritis with rheumatoid factor of unspecified site without organ or systems involvement (principal); M15.9 Polyosteoarthritis, unspecified; M21.40 Flat foot [pes planus] (acquired), unspecified foot; H35.30 Unspecified macular degeneration; Z79.899 Other long term (current) drug therapy
CPT/HCPCS: 36415; 80053

== ENCOUNTER → 2020-08-27 15:33 | Outpatient (CLI) | payer MEDICARE, BC, SELFPAY ==
[2020-05-12 14:03] VITALS: BMI 23.8
[2020-08-27 17:06] LABS: Absolute Lymphocyte Count 0.68 X10^3/uL (0.83-4.51); Absolute Neutrophil Count 5.9 X10^3/uL (2.0-7.7); Basophil# 0.02 X10^3/uL; Basophil% 0.3 % (0-1); Eosinophil# 0.47 X10^3/uL; Eosinophils% 5.9 % (0-5); Hematocrit 41.5 % (40-54); Hemoglobin 13.2 g/dL (13.0-16.5); Lymphocyte # 0.68 X10^3/ul (4.0); Lymphocyte % 8.6 % (19-41); Mean Corp Hgb Conc 31.8 g/dL (32-36); Mean Corpuscular Hgb 31.4 pg (27.0-32.0); Mean Corpuscular Volume 98.6 fL (80-94); Monocyte# 0.83 X10^3/uL; Monocyte% 10.5 % (0-10); NRBC Flagged by Analyzer 0 % (0-5); Neutrophil # 5.85 X10^3/uL (2.7-7.7); Neutrophil % 73.8 % (47-70); Platelet Count 143 K/mm3 (150-450); RBC Distribution Width CV 15.4 % (11.6-14.6); RBC Distribution Width SD 53.9 fl (35.1-43.9); Red Blood Count 4.21 M/mm3 (4.6-6.2); White Blood Count 7.9 K/mm3 (4.4-11.0)
[2020-08-27 17:23] LABS: Anion Gap 5 (5-15); BUN 25 mg/dL (7-18); BUN/Creat Ratio 19.4 RATIO (10-20); Calcium,Total 9.2 mg/dL (8.5-10.1); Chloride 106 mmol/L (98-107); Creatinine, Serum 1.29 mg/dL (0.70-1.30); EST Glomerular Filtration Rate 57 mL/min (>60); Est Glom Filt Rate - Afr Amer 68 mL/min (>60); Glucose 88 mg/dL (74-106); Potassium 4.4 mmol/L (3.5-5.1); Sodium Level 140 mmol/L (136-145); Thyroid Stim Hormone (TSH) 1.53 uIU/mL (0.358-3.74)
== END ==
PROVIDERS: PCP Family Medicine Geriatric Medicine; Visit Provider Family Medicine Geriatric Medicine
DX: R53.83 Other fatigue (principal)
CPT/HCPCS: 36415; 80048; 84443; 85025; 87077; 87086; 87088

== ENCOUNTER → 2020-10-05 15:29 | Outpatient (CLI) | payer MEDICARE, BC, SELFPAY ==
[2020-05-12 14:03] VITALS: BMI 23.8
[2020-10-05 17:51] LABS: Absolute Lymphocyte Count 0.69 X10^3/uL (0.83-4.51); Absolute Neutrophil Count 4.8 X10^3/uL (2.0-7.7); Basophil# 0.02 X10^3/uL; Basophil% 0.3 % (0-1); Eosinophil# 0.12 X10^3/uL; Eosinophils% 1.9 % (0-5); Hematocrit 40.6 % (40-54); Lymphocyte # 0.69 X10^3/ul (4.0); Mean Platelet Vol. 11.5 fl (6.2-12.0); Monocyte# 0.65 X10^3/uL; Monocyte% 10.3 % (0-10); NRBC Flagged by Analyzer 0 % (0-5); Neutrophil % 76.2 % (47-70); POSITIVE COUNT YES; Platelet Count 99 K/mm3 (150-450); RBC Distribution Width CV 15.1 % (11.6-14.6); RBC Distribution Width SD 53.8 fl (35.1-43.9); Red Blood Count 4.06 M/mm3 (4.6-6.2); White Blood Count 6.3 K/mm3 (4.4-11.0)
[2020-10-05 18:07] LABS: Differential Indicated SCAN CRITERIA MET
[2020-10-05 18:08] LABS: ALB/GLOB Ratio 1.2 RATIO (0.9-2.4); AST(SGOT) 21 U/L (15-37); Alanine Aminotransfer ALT/SGPT 27 U/L (16-61); Albumin, Serum 3.7 g/dL (3.2-5.0); Alkaline Phosphatase 137 U/L (45-117); Anion Gap 6 (5-15); BUN 24 mg/dL (7-18); BUN/Creat Ratio 17.3 RATIO (10-20); Calcium,Total 8.9 mg/dL (8.5-10.1); Chloride 108 mmol/L (98-107); Creatinine, Serum 1.39 mg/dL (0.70-1.30); EST Glomerular Filtration Rate 52 mL/min (>60); Est Glom Filt Rate - Afr Amer 63 mL/min (>60); Globulin 3.2 g/dL (2.2-4.2); Glucose 123 mg/dL (74-106); Potassium 4.6 mmol/L (3.5-5.1); Protein, Total 6.9 g/dL (6.4-8.2); Sodium Level 141 mmol/L (136-145)
[2020-10-05 18:51] LABS: Platelet Estimate SLT DEC (ADEQ); Red Cell Morphology NORM C+C NORMAL (NORM C&C)
== END ==
PROVIDERS: PCP Family Medicine Geriatric Medicine; Referring Provider Internal Medicine Rheumatology; Visit Provider Internal Medicine Rheumatology
DX: M05.70 Rheumatoid arthritis with rheumatoid factor of unspecified site without organ or systems involvement (principal); M15.9 Polyosteoarthritis, unspecified; M21.40 Flat foot [pes planus] (acquired), unspecified foot; H35.30 Unspecified macular degeneration; K21.9 Gastro-esophageal reflux disease without esophagitis; I25.10 Atherosclerotic heart disease of native coronary artery without angina pectoris; Z79.899 Other long term (current) drug therapy
CPT/HCPCS: 36415; 80053; 85025

== ENCOUNTER → 2020-10-07 10:06 | Outpatient (CLI) | payer MEDICARE, BC, SELFPAY ==
[2020-05-12 14:03] VITALS: BMI 23.8
[2020-10-07 15:43] LABS: Vitamin D,25 Hydroxy 38.7 ng/mL
[2020-10-07 15:48] LABS: ALB/GLOB Ratio 1.1 RATIO (0.9-2.4); AST(SGOT) 19 U/L (15-37); Absolute Lymphocyte Count 0.42 X10^3/uL (0.83-4.51); Absolute Neutrophil Count 4.3 X10^3/uL (2.0-7.7); Alanine Aminotransfer ALT/SGPT 25 U/L (16-61); Albumin, Serum 3.6 g/dL (3.2-5.0); Alkaline Phosphatase 132 U/L (45-117); Anion Gap 7 (5-15); BUN 19 mg/dL (7-18); BUN/Creat Ratio 13.9 RATIO (10-20); Basophil# 0.02 X10^3/uL; Basophil% 0.4 % (0-1); Calcium,Total 8.3 mg/dL (8.5-10.1); Chloride 109 mmol/L (98-107); Creatinine, Serum 1.37 mg/dL (0.70-1.30); EST Glomerular Filtration Rate 53 mL/min (>60); Eosinophil# 0.13 X10^3/uL; Eosinophils% 2.3 % (0-5); Est Glom Filt Rate - Afr Amer 64 mL/min (>60); Globulin 3.2 g/dL (2.2-4.2); Glucose 143 mg/dL (74-106); Hematocrit 39.5 % (40-54); Hemoglobin 13.1 g/dL (13.0-16.5); Lymphocyte # 0.42 X10^3/ul (4.0); Lymphocyte % 7.6 % (19-41); Mean Corp Hgb Conc 33.2 g/dL (32-36); Mean Corpuscular Hgb 32.8 pg (27.0-32.0); Mean Corpuscular Volume 98.8 fL (80-94); Mean Platelet Vol. 11.5 fl (6.2-12.0); Monocyte# 0.61 X10^3/uL; NRBC Flagged by Analyzer 0 % (0-5); Neutrophil # 4.34 X10^3/uL (2.7-7.7); Neutrophil % 78.2 % (47-70); POSITIVE DIFFERENTIAL YES; Platelet Count 106 K/mm3 (150-450); Potassium 4.1 mmol/L (3.5-5.1); Protein, Total 6.8 g/dL (6.4-8.2); RBC Distribution Width CV 14.9 % (11.6-14.6); RBC Distribution Width SD 50.8 fl (35.1-43.9); Sodium Level 140 mmol/L (136-145); Thyroid Stim Hormone (TSH) 1.36 uIU/mL (0.358-3.74); White Blood Count 5.6 K/mm3 (4.4-11.0)
[2020-10-07 15:51] LABS: Differential Indicated SCAN CRITERIA MET
[2020-10-07 16:36] LABS: Differential Comment SCANNED
== END ==
PROVIDERS: PCP Family Medicine Geriatric Medicine; Visit Provider Family Medicine Geriatric Medicine
DX: E55.9 Vitamin D deficiency, unspecified (principal); I10 Essential (primary) hypertension
CPT/HCPCS: 36415; 80053; 82306; 84443; 85025

== ENCOUNTER → 2020-10-26 15:45 | Outpatient (CLI) | payer MEDICARE, BC, SELFPAY ==
[2020-10-13 13:10] VITALS: BMI 24.3
--- NOTE | 2020-10-26 15:50 | RAD_ITS ---
STUDY: X-RAY CHEST REASON FOR EXAM: Male, 85 years old. COPD, sob upon exertion x 1 week. TECHNIQUE: PA and lateral views of the chest. COMPARISON: 02/26/2020 FINDINGS: Left subclavian triple lead AICD which is unchanged. Status post median sternotomy. The lungs are clear and expanded. Tiny bilateral pleural effusions with some bibasilar atelectasis. There is moderate cardiac enlargement. Normal mediastinum and chilo. Normal visualized pulmonary arteries. Normal visualized aortic arch and descending thoracic aorta. Normal visualized thoracic spine. Normal visualized ribs, clavicles, and shoulders. There is no demonstrated abnormality of the visualized soft tissue structures of the upper abdomen. RAD/Chest PA and Lateral IMPRESSION: Tiny bilateral pleural effusions with some bibasilar atelectasis. Electronically Signed: Frank Mohamud MD at 16:41 EST Tel , Service support ,
== END ==
PROVIDERS: PCP Family Medicine Geriatric Medicine; Referring Provider Internal Medicine Pulmonary Disease; Visit Provider Internal Medicine Pulmonary Disease
DX: J44.9 Chronic obstructive pulmonary disease, unspecified (principal)
CPT/HCPCS: 71046

== ENCOUNTER → 2020-10-27 13:52 | Outpatient (CLI) | payer MEDICARE, BC, SELFPAY ==
[2020-10-13 13:10] VITALS: BMI 24.3
[2020-10-27 15:13] LABS: Absolute Lymphocyte Count 0.62 X10^3/uL (0.83-4.51); Absolute Neutrophil Count 8.6 X10^3/uL (2.0-7.7); Basophil# 0.03 X10^3/uL; Basophil% 0.3 % (0-1); Eosinophil# 0.12 X10^3/uL; Eosinophils% 1.1 % (0-5); Hematocrit 40.5 % (40-54); Hemoglobin 13.3 g/dL (13.0-16.5); Lymphocyte # 0.62 X10^3/ul (4.0); Lymphocyte % 5.9 % (19-41); Mean Corp Hgb Conc 32.8 g/dL (32-36); Mean Corpuscular Hgb 31.6 pg (27.0-32.0); Mean Corpuscular Volume 96.2 fL (80-94); Monocyte# 1.11 X10^3/uL; Monocyte% 10.6 % (0-10); NRBC Flagged by Analyzer 0 % (0-5); Neutrophil # 8.55 X10^3/uL (2.7-7.7); Neutrophil % 81.2 % (47-70); Platelet Count 144 K/mm3 (150-450); RBC Distribution Width CV 15.6 % (11.6-14.6); RBC Distribution Width SD 52.8 fl (35.1-43.9); Red Blood Count 4.21 M/mm3 (4.6-6.2); White Blood Count 10.5 K/mm3 (4.4-11.0)
[2020-10-27 15:44] LABS: ALB/GLOB Ratio 1.2 RATIO (0.9-2.4); AST(SGOT) 26 U/L (15-37); Alanine Aminotransfer ALT/SGPT 27 U/L (16-61); Alkaline Phosphatase 140 U/L (45-117); Anion Gap 9 (5-15); BUN 18 mg/dL (7-18); BUN/Creat Ratio 12.8 RATIO (10-20); Calcium,Total 8.9 mg/dL (8.5-10.1); Chloride 106 mmol/L (98-107); Creatinine, Serum 1.41 mg/dL (0.70-1.30); EST Glomerular Filtration Rate 51 mL/min (>60); Est Glom Filt Rate - Afr Amer 62 mL/min (>60); Globulin 3.4 g/dL (2.2-4.2); Glucose 77 mg/dL (74-106); Potassium 4.2 mmol/L (3.5-5.1); Protein, Total 7.4 g/dL (6.4-8.2); Sodium Level 138 mmol/L (136-145)
[2020-10-27 16:03] LABS: BNP,B-Type NATRIURETIC PEPTIDE 689.5 pg/mL (0-100)
== END ==
PROVIDERS: PCP Family Medicine Geriatric Medicine; Visit Provider Family Medicine Geriatric Medicine
DX: R06.02 Shortness of breath (principal)
CPT/HCPCS: 36415; 80053; 83880; 85025

== ENCOUNTER → 2020-10-28 17:12 | Outpatient (CLI) | payer MEDICARE, BC, SELFPAY ==
[2020-10-13 13:10] VITALS: BMI 24.3
== END ==
PROVIDERS: PCP Family Medicine Geriatric Medicine; Referring Provider Family Medicine Geriatric Medicine; Visit Provider Family Medicine Geriatric Medicine
DX: R06.02 Shortness of breath (principal)
CPT/HCPCS: 87633; 87635; C9803; U0005; U0003

== ENCOUNTER → 2020-11-04 16:27 | Outpatient (CLI) | payer MEDICARE, BC, SELFPAY ==
[2020-10-13 13:10] VITALS: BMI 24.3
[2020-11-04 17:55] LABS: Anion Gap 5 (5-15); BUN 29 mg/dL (7-18); BUN/Creat Ratio 21.3 RATIO (10-20); Calcium,Total 8.6 mg/dL (8.5-10.1); Chloride 107 mmol/L (98-107); Creatinine, Serum 1.36 mg/dL (0.70-1.30); EST Glomerular Filtration Rate 53 mL/min (>60); Est Glom Filt Rate - Afr Amer 64 mL/min (>60); Glucose 94 mg/dL (74-106); Potassium 4.6 mmol/L (3.5-5.1); Sodium Level 140 mmol/L (136-145)
== END ==
PROVIDERS: PCP Family Medicine Geriatric Medicine; Referring Provider Family Medicine Geriatric Medicine; Visit Provider Family Medicine Geriatric Medicine
DX: I50.9 Heart failure, unspecified (principal)
CPT/HCPCS: 36415; 80048

== ENCOUNTER → 2020-12-01 16:15 | Outpatient (CLI) | payer MEDICARE, BC, SELFPAY ==
[2020-10-13 13:10] VITALS: BMI 24.3
[2020-12-01 17:00] LABS: Absolute Lymphocyte Count 0.58 X10^3/uL (0.83-4.51); Absolute Neutrophil Count 6.2 X10^3/uL (2.0-7.7); Basophil# 0.07 X10^3/uL; Basophil% 0.8 % (0-1); Eosinophil# 0.66 X10^3/uL; Eosinophils% 7.9 % (0-5); Hematocrit 40.8 % (40-54); Hemoglobin 12.7 g/dL (13.0-16.5); Lymphocyte # 0.58 X10^3/ul (4.0); Mean Corp Hgb Conc 31.1 g/dL (32-36); Mean Corpuscular Hgb 30.2 pg (27.0-32.0); Mean Corpuscular Volume 96.9 fL (80-94); Mean Platelet Vol. 10.6 fl (6.2-12.0); Monocyte# 0.73 X10^3/uL; Monocyte% 8.8 % (0-10); NRBC Flagged by Analyzer 0 % (0-5); Neutrophil # 6.18 X10^3/uL (2.7-7.7); Neutrophil % 74.3 % (47-70); POSITIVE DIFFERENTIAL YES; Platelet Count 118 K/mm3 (150-450); RBC Distribution Width CV 16.2 % (11.6-14.6); RBC Distribution Width SD 55.9 fl (35.1-43.9); Red Blood Count 4.21 M/mm3 (4.6-6.2); White Blood Count 8.3 K/mm3 (4.4-11.0)
[2020-12-01 17:02] LABS: Differential Indicated SCAN CRITERIA MET
[2020-12-01 17:25] LABS: Differential Comment SCANNED
[2020-12-01 17:49] LABS: AST(SGOT) 22 U/L (15-37); Alanine Aminotransfer ALT/SGPT 21 U/L (16-61); Albumin, Serum 3.4 g/dL (3.2-5.0); Alkaline Phosphatase 124 U/L (45-117); Anion Gap 7 (5-15); BUN 27 mg/dL (7-18); BUN/Creat Ratio 21.8 RATIO (10-20); Chloride 108 mmol/L (98-107); Creatinine, Serum 1.24 mg/dL (0.70-1.30); EST Glomerular Filtration Rate 59 mL/min (>60); Est Glom Filt Rate - Afr Amer 72 mL/min (>60); Globulin 3.4 g/dL (2.2-4.2); Glucose 83 mg/dL (74-106); Potassium 4.3 mmol/L (3.5-5.1); Protein, Total 6.8 g/dL (6.4-8.2); Sodium Level 141 mmol/L (136-145)
== END ==
PROVIDERS: PCP Family Medicine Geriatric Medicine; Visit Provider Internal Medicine Rheumatology
DX: M05.70 Rheumatoid arthritis with rheumatoid factor of unspecified site without organ or systems involvement (principal); M15.9 Polyosteoarthritis, unspecified; M21.40 Flat foot [pes planus] (acquired), unspecified foot; H35.30 Unspecified macular degeneration; K21.9 Gastro-esophageal reflux disease without esophagitis; I25.10 Atherosclerotic heart disease of native coronary artery without angina pectoris; I10 Essential (primary) hypertension; L12.0 Bullous pemphigoid; J44.9 Chronic obstructive pulmonary disease, unspecified; N40.1 Benign prostatic hyperplasia with lower urinary tract symptoms; Z95.0 Presence of cardiac pacemaker; Z79.899 Other long term (current) drug therapy
CPT/HCPCS: 36415; 80053; 85025

== ENCOUNTER → 2020-12-04 16:56 | Outpatient (CLI) | payer MEDICARE, BC, SELFPAY ==
[2020-10-13 13:10] VITALS: BMI 24.3
--- NOTE | 2020-12-04 16:58 | RAD_ITS ---
STUDY: X-RAY CHEST REASON FOR EXAM: Male, 85 years old. DYSPNEA TECHNIQUE: PA and lateral views of the chest. COMPARISON: 10/26/2020 FINDINGS: Left subclavian dual-lead AICD which is unchanged. Status post median sternotomy. Faint alveolar opacity in the lower right lung consistent with right lower lobe pneumonia. There is no demonstrated pleural abnormality. There is moderate cardiac enlargement. Normal mediastinum and chilo. Normal visualized pulmonary arteries. Normal visualized aortic arch and descending thoracic aorta. Normal visualized thoracic spine. Normal visualized ribs, clavicles, and shoulders. There is no demonstrated abnormality of the visualized soft tissue structures of the upper abdomen. RAD/Chest PA and Lateral IMPRESSION: Right lower lobe pneumonia. Electronically Signed: Frank Mohamud MD at 17:12 EST Tel , Service support ,
== END ==
PROVIDERS: PCP Family Medicine Geriatric Medicine; Referring Provider Internal Medicine Pulmonary Disease; Visit Provider Internal Medicine Pulmonary Disease
DX: R06.00 Dyspnea, unspecified (principal)
CPT/HCPCS: 71046

== ENCOUNTER → 2020-12-07 16:20 | Outpatient (CLI) | payer MEDICARE, BC, SELFPAY ==
[2020-10-13 13:10] VITALS: BMI 24.3
== END ==
PROVIDERS: PCP Family Medicine Geriatric Medicine; Visit Provider Internal Medicine Pulmonary Disease
DX: R06.00 Dyspnea, unspecified (principal)
CPT/HCPCS: 87635; C9803; U0005; U0003

== ENCOUNTER → 2020-12-21 16:07 | Outpatient (CLI) | payer MEDICARE, BC, SELFPAY ==
[2020-10-13 13:10] VITALS: BMI 24.3
--- NOTE | 2020-12-21 16:09 | RAD_ITS ---
STUDY: X-RAY CHEST REASON FOR EXAM: Male, 85 years old. History of dyspnea and infection. TECHNIQUE: Frontal and lateral views of the chest. COMPARISON: 12/04/2020 FINDINGS: Stable mild hyperexpansion. Right lower lobe opacity on the prior study is no longer seen. There is no demonstrated pleural abnormality. Cardiomegaly with sternotomy wires and dual lead cardiac pacer unchanged. Normal mediastinum and chilo. Normal visualized pulmonary arteries. Aortic tortuosity unchanged Stable moderate thoracic spondylosis. Normal visualized ribs, clavicles, and shoulders. There is no demonstrated abnormality of the visualized soft tissue structures of the upper abdomen. RAD/Chest PA and Lateral IMPRESSION: Cardiomegaly with hyperexpansion and no acute or active cardiopulmonary disease. Electronically Signed: aDnis Campbell MD at 12:30 EDT , Service support ,
== END ==
PROVIDERS: PCP Family Medicine Geriatric Medicine; Referring Provider Internal Medicine Pulmonary Disease; Visit Provider Internal Medicine Pulmonary Disease
DX: J44.9 Chronic obstructive pulmonary disease, unspecified (principal)
CPT/HCPCS: 71046

== ENCOUNTER 2021-01-01 14:26 | Outpatient (RCR) | payer MEDICARE, BC, SELFPAY ==
[2020-10-13 13:10] VITALS: BMI 24.3
== END 2021-03-16 23:59 ==
LOC: IMMUN 14:26
PROVIDERS: PCP Family Medicine Geriatric Medicine; Visit Provider Family Medicine
DX: Z23 Encounter for immunization (principal)
CPT/HCPCS: 0001A; 0002A; 91300

== ENCOUNTER → 2021-01-14 14:24 | Outpatient (CLI) | payer MEDICARE, BC, SELFPAY ==
[2020-10-13 13:10] VITALS: BMI 24.3
[2021-01-14 16:35] LABS: Absolute Lymphocyte Count 0.63 X10^3/uL (0.83-4.51); Absolute Neutrophil Count 4.6 X10^3/uL (2.0-7.7); Basophil# 0.03 X10^3/uL; Basophil% 0.5 % (0-1); Eosinophil# 0.08 X10^3/uL; Eosinophils% 1.3 % (0-5); Hematocrit 38.1 % (40-54); Hemoglobin 12.5 g/dL (13.0-16.5); Lymphocyte # 0.63 X10^3/ul (4.0); Lymphocyte % 10.4 % (19-41); Mean Corp Hgb Conc 32.8 g/dL (32-36); Mean Corpuscular Hgb 32.5 pg (27.0-32.0); Mean Platelet Vol. 10.9 fl (6.2-12.0); Monocyte# 0.72 X10^3/uL; Monocyte% 11.9 % (0-10); NRBC Flagged by Analyzer 0 % (0-5); Neutrophil # 4.55 X10^3/uL (2.7-7.7); Neutrophil % 75.2 % (47-70); POSITIVE COUNT YES; Platelet Count 89 K/mm3 (150-450); RBC Distribution Width CV 16.5 % (11.6-14.6); RBC Distribution Width SD 57.5 fl (35.1-43.9); Red Blood Count 3.85 M/mm3 (4.6-6.2); White Blood Count 6.1 K/mm3 (4.4-11.0)
[2021-01-14 16:36] LABS: Differential Indicated SCAN CRITERIA MET
[2021-01-14 17:08] LABS: ALB/GLOB Ratio 1.2 RATIO (0.9-2.4); AST(SGOT) 21 U/L (15-37); Alanine Aminotransfer ALT/SGPT 23 U/L (16-61); Albumin, Serum 3.5 g/dL (3.2-5.0); Alkaline Phosphatase 112 U/L (45-117); Anion Gap 4 (5-15); BUN 24 mg/dL (7-18); BUN/Creat Ratio 16.7 RATIO (10-20); Calcium,Total 8.6 mg/dL (8.5-10.1); Chloride 108 mmol/L (98-107); Creatinine, Serum 1.44 mg/dL (0.70-1.30); EST Glomerular Filtration Rate 50 mL/min (>60); Est Glom Filt Rate - Afr Amer 60 mL/min (>60); Glucose 106 mg/dL (74-106); Potassium 4.3 mmol/L (3.5-5.1); Protein, Total 6.5 g/dL (6.4-8.2); Sodium Level 139 mmol/L (136-145); Thyroid Stim Hormone (TSH) 1.23 uIU/mL (0.358-3.74)
== END ==
PROVIDERS: PCP Family Medicine Geriatric Medicine; Visit Provider Family Medicine Geriatric Medicine
DX: E55.9 Vitamin D deficiency, unspecified (principal); I10 Essential (primary) hypertension
CPT/HCPCS: 36415; 80053; 82306; 84443; 85025

== ENCOUNTER → 2021-02-02 16:41 | Outpatient (CLI) | payer MEDICARE, BC, SELFPAY ==
[2020-10-13 13:10] VITALS: BMI 24.3
[2021-02-02 17:51] LABS: Absolute Lymphocyte Count 0.53 X10^3/uL (0.83-4.51); Absolute Neutrophil Count 5.5 X10^3/uL (2.0-7.7); Basophil# 0.03 X10^3/uL; Basophil% 0.4 % (0-1); Eosinophil# 0.16 X10^3/uL; Eosinophils% 2.3 % (0-5); Hematocrit 39.4 % (40-54); Hemoglobin 12.3 g/dL (13.0-16.5); Lymphocyte # 0.53 X10^3/ul (0.83-4.51); Lymphocyte % 7.7 % (19-41); Mean Corp Hgb Conc 31.2 g/dL (32-36); Mean Corpuscular Hgb 30.8 pg (27.0-32.0); Mean Corpuscular Volume 98.5 fL (80-94); Mean Platelet Vol. 10.8 fl (6.2-12.0); Monocyte# 0.63 X10^3/uL; Monocyte% 9.1 % (0-10); NRBC Flagged by Analyzer 0 % (0-5); Neutrophil # 5.51 X10^3/uL (2.7-7.7); Neutrophil % 79.9 % (47-70); POSITIVE DIFFERENTIAL YES; Platelet Count 113 K/mm3 (150-450); RBC Distribution Width CV 15.9 % (11.6-14.6); RBC Distribution Width SD 56.4 fl (35.1-43.9); White Blood Count 6.9 K/mm3 (4.4-11.0)
[2021-02-02 17:56] LABS: Differential Indicated SCAN CRITERIA MET
[2021-02-02 18:45] LABS: ALB/GLOB Ratio 1.2 RATIO (0.9-2.4); AST(SGOT) 19 U/L (15-37); Alanine Aminotransfer ALT/SGPT 27 U/L (16-61); Albumin, Serum 3.6 g/dL (3.2-5.0); Alkaline Phosphatase 109 U/L (45-117); Anion Gap 6 (5-15); BUN 27 mg/dL (7-18); BUN/Creat Ratio 18.4 RATIO (10-20); Calcium,Total 8.9 mg/dL (8.5-10.1); Chloride 106 mmol/L (98-107); Creatinine, Serum 1.47 mg/dL (0.70-1.30); EST Glomerular Filtration Rate 49 mL/min (>60); Est Glom Filt Rate - Afr Amer 59 mL/min (>60); Glucose 102 mg/dL (74-106); Potassium 4.8 mmol/L (3.5-5.1); Protein, Total 6.6 g/dL (6.4-8.2); Sodium Level 139 mmol/L (136-145)
== END ==
PROVIDERS: PCP Family Medicine Geriatric Medicine; Referring Provider Internal Medicine Rheumatology; Visit Provider Internal Medicine Rheumatology
DX: M05.70 Rheumatoid arthritis with rheumatoid factor of unspecified site without organ or systems involvement (principal); M21.40 Flat foot [pes planus] (acquired), unspecified foot; H35.30 Unspecified macular degeneration; K21.9 Gastro-esophageal reflux disease without esophagitis; I25.10 Atherosclerotic heart disease of native coronary artery without angina pectoris; I10 Essential (primary) hypertension; L12.0 Bullous pemphigoid; J44.9 Chronic obstructive pulmonary disease, unspecified; N04.1 Nephrotic syndrome with focal and segmental glomerular lesions; Z95.0 Presence of cardiac pacemaker; Z79.899 Other long term (current) drug therapy
CPT/HCPCS: 36415; 80053; 85025

== ENCOUNTER → 2021-02-16 15:21 | Outpatient (CLI) | payer MEDICARE, BC, SELFPAY ==
[2020-10-13 13:10] VITALS: BMI 24.3
[2021-02-16 16:03] LABS: Absolute Lymphocyte Count 0.24 X10^3/uL (0.83-4.51); Absolute Neutrophil Count 8.1 X10^3/uL (2.0-7.7); Basophil# 0.02 X10^3/uL; Basophil% 0.2 % (0-1); Eosinophil# 0.01 X10^3/uL; Eosinophils% 0.1 % (0-5); Hematocrit 36.6 % (40-54); Hemoglobin 11.9 g/dL (13.0-16.5); Lymphocyte # 0.24 X10^3/ul (0.83-4.51); Lymphocyte % 2.7 % (19-41); Mean Corp Hgb Conc 32.5 g/dL (32-36); Mean Corpuscular Hgb 31.5 pg (27.0-32.0); Mean Corpuscular Volume 96.8 fL (80-94); Mean Platelet Vol. 10.7 fl (6.2-12.0); Monocyte# 0.51 X10^3/uL; Monocyte% 5.7 % (0-10); NRBC Flagged by Analyzer 0 % (0-5); Neutrophil # 8.08 X10^3/uL (2.7-7.7); Neutrophil % 90.2 % (47-70); POSITIVE DIFFERENTIAL YES; Platelet Count 115 K/mm3 (150-450); RBC Distribution Width CV 15.3 % (11.6-14.6); Red Blood Count 3.78 M/mm3 (4.6-6.2)
[2021-02-16 16:14] LABS: Anion Gap 7 (5-15); BUN 31 mg/dL (7-18); BUN/Creat Ratio 23.8 RATIO (10-20); Calcium,Total 8.7 mg/dL (8.5-10.1); Chloride 111 mmol/L (98-107); EST Glomerular Filtration Rate 56 mL/min (>60); Est Glom Filt Rate - Afr Amer 68 mL/min (>60); Glucose 105 mg/dL (74-106); Potassium 4.9 mmol/L (3.5-5.1); Sodium Level 141 mmol/L (136-145)
[2021-02-16 16:27] LABS: BNP,B-Type NATRIURETIC PEPTIDE 578.8 pg/mL (0-100)
[2021-02-16 16:29] LABS: Differential Indicated SCAN CRITERIA MET
[2021-02-16 16:31] LABS: Differential Comment SCANNED
== END ==
PROVIDERS: PCP Family Medicine Geriatric Medicine; Visit Provider Family Medicine Geriatric Medicine
DX: I50.9 Heart failure, unspecified (principal)
CPT/HCPCS: 36415; 80048; 83880; 85025

== ENCOUNTER → 2021-02-23 16:20 | Outpatient (CLI) | payer MEDICARE, BC, SELFPAY ==
[2020-10-13 13:10] VITALS: BMI 24.3
[2021-02-23 18:09] LABS: Anion Gap 6 (5-15); BUN 31 mg/dL (7-18); BUN/Creat Ratio 22.8 RATIO (10-20); Calcium,Total 8.8 mg/dL (8.5-10.1); Chloride 102 mmol/L (98-107); Creatinine, Serum 1.36 mg/dL (0.70-1.30); EST Glomerular Filtration Rate 53 mL/min (>60); Est Glom Filt Rate - Afr Amer 64 mL/min (>60); Glucose 96 mg/dL (74-106); Potassium 4.6 mmol/L (3.5-5.1); Sodium Level 138 mmol/L (136-145)
== END ==
LOC: CT 03-09 15:57 → POLAB3 03-17 14:44
PROVIDERS: PCP Family Medicine Geriatric Medicine; Visit Provider Surgery Vascular Surgery
DX: I71.4 Abdominal aortic aneurysm, without rupture (principal); Z95.828 Presence of other vascular implants and grafts
CPT/HCPCS: 36415; 80048

== ENCOUNTER → 2021-03-17 12:55 | Outpatient (CLI) | payer MEDICARE, BC, SELFPAY ==
[2021-03-03 14:59] VITALS: BMI 22.7
--- NOTE | 2021-03-17 13:00 | CT_ITS ---
STUDY: CT CHEST WITHOUT CONTRAST REASON FOR EXAM: Male, 85 years old. Copd, dyspnea RADIATION DOSAGE (If Supplied By Facility): CTDIvol = ( 6.53 ) mGy, DLP = ( 232.02 ) mGycm TECHNIQUE: Transaxial imaging was performed without the administration of intravenous contrast material. Multiplanar coronal and sagittal images were reformatted. Individualized dose optimization techniques were used for this CT. COMPARISON: 04/27/2020 CT angiogram abdomen and pelvis, CT angiogram chest 02/12/2015, 02/28/2018 CT scan abdomen and pelvis FINDINGS: There is a visualized left-sided pacer. Leads overlying the heart. There is emphysematous change throughout the lungs. There are small bilateral effusions. Within the right lower lobe is a small focus of nodularity suggesting a small nodule noted adjacent satellite nodule measuring 4.6 and 2.9 mm. Not seen on prior studies. There is a minimal focus of fibrotic change in the medial aspect of the right lower lobe there is an associated small nodule measuring 4.4 mm. There is a calcific density within the periphery of the superior aspect of the right lower lobe. There is moderate cardiac enlargement sternotomy wires are seen midline. Nonspecific subcentimeter mediastinal lymph nodes. Normal hilar regions. Normal unenhanced pulmonary arteries. There is partially calcified. The ascending thoracic aorta measures 2.1 x 2.9 cm. Descending thoracic aorta measures 3.6 x 3.4 cm. There are multi-level degenerative changes of the thoracic spine. There is aneurysmal dilatation of the descending thoracic aorta at the level of the hiatus measuring 4.1 x 4.2 cm. There is a visualized aortic stent at the level of the celiac. There is visualize cholelithiasis. There is moderate stool in the colon. The visualized hydroureter hernia measuring 5.[address]/Chest without Contrast IMPRESSION: Right lower lobe small focus of spiculated nodularity which raises concern for the possibility of early primary neoplasm or metastatic disease. Recommend close interval follow-up study within 3-6 months or PET scan. Cardiomegaly defibrillator status post sternotomy. 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 Postoperative change in the abdominal aorta. Cholelithiasis. Pulmonary emphysema. Small right effusion small left effusion. Moderate hiatal hernia. Electronically Signed: Jessica Bruno MD at 7:49 EDT Tel , Service support ,
--- NOTE | 2021-03-17 13:01 | CT_ITS ---
STUDY: CT ABDOMEN AND PELVIS WITH CONTRAST REASON FOR EXAM: Male, 85 years old. ENDOVASCULAR GRAFT REPAIR INFRARENAL AAA ABDOMINAL AORTIC ANEURYSM RADIATION DOSAGE (If Supplied By Facility): CTDIvol = ( 13.54 ) mGy, DLP = ( 660.10 ) mGycm TECHNIQUE: Transaxial images were obtained from the dome of the diaphragm to the symphysis pubis without oral contrast. IV 100ML ISOVUE 300 was administered. Sagittal and coronal images were reconstructed. Individualized dose optimization techniques were used for this CT. COMPARISON: Comparison is made with prior examination dated 04/27/2020. FINDINGS: Small bilateral pleural effusions with minimal bibasilar atelectasis. Coronary arterial stenting. A dual lead pacer is seen. Normal liver. There are multiple small gallstones. Stable 1 cm cyst in the inferior aspect of the spleen. Normal pancreas. Normal bilateral adrenal glands. Normal right kidney. Normal left kidney. There is a moderate-sized hiatal hernia. There is an 8.4 mm fat-containing nodule in the third portion of the duodenum. This most likely represents a lipoma. Normal colon. The appendix is visualized and appears normal. There is tortuosity and dilatation of the distal thoracic aorta as it goes through the diaphragmatic hiatus. Mural thrombus is seen anteriorly. This is unchanged. Once again, a stent graft is seen in the suprarenal abdominal aorta. The covered stent terminates just below the renal arterial origins. Once again, there is saccular infrarenal abdominal aortic aneurysm with a transverse dimension of 7.6 cm. Bilateral common iliac stent grafts are seen and are patent. The proximal portions extending into the distal portion of the aortic graft. Stable dilatation of the common iliac arteries bilaterally. Atherosclerotic calcific plaque once again seen at the origin of the celiac artery and superior mesenteric artery. Normal inferior vena cava. Normal retroperitoneum. Normal urinary bladder. Normal abdominal wall. Status post bilateral inguinal hernias repair. CT/CT ANGIO ABD&PEL W/O&W/DYE IMPRESSION: Stable examination. Electronically Signed: Jani Bills MD at 9:14 EDT , Service support ,
== END ==
PROVIDERS: PCP Family Medicine Geriatric Medicine; Referring Provider Internal Medicine Pulmonary Disease; Visit Provider Internal Medicine Pulmonary Disease
DX: J44.9 Chronic obstructive pulmonary disease, unspecified (principal); R06.00 Dyspnea, unspecified
CPT/HCPCS: 71250; 74174; Q9967

== ENCOUNTER → 2021-03-25 16:10 | Outpatient (CLI) | payer MEDICARE, BC, SELFPAY ==
[2021-03-03 14:59] VITALS: BMI 22.7
[2021-03-25 17:11] LABS: Anion Gap 6 (5-15); BUN 23 mg/dL (7-18); BUN/Creat Ratio 17.4 RATIO (10-20); Calcium,Total 8.7 mg/dL (8.5-10.1); Chloride 108 mmol/L (98-107); Creatinine, Serum 1.32 mg/dL (0.70-1.30); EST Glomerular Filtration Rate 55 mL/min (>60); Est Glom Filt Rate - Afr Amer 67 mL/min (>60); Glucose 80 mg/dL (74-106); Potassium 4.1 mmol/L (3.5-5.1); Sodium Level 143 mmol/L (136-145)
== END ==
PROVIDERS: PCP Family Medicine Geriatric Medicine; Visit Provider Family Medicine Geriatric Medicine
DX: E87.6 Hypokalemia (principal)
CPT/HCPCS: 36415; 80048

== ENCOUNTER → 2021-04-01 14:50 | Outpatient (CLI) | payer MEDICARE, BC, SELFPAY ==
[2021-03-03 14:59] VITALS: BMI 22.7
[2021-04-01 17:23] LABS: Absolute Lymphocyte Count 0.98 X10^3/uL (0.83-4.51); Absolute Neutrophil Count 6.2 X10^3/uL (2.0-7.7); Basophil# 0.04 X10^3/uL; Basophil% 0.5 % (0-1); Eosinophils% 1.2 % (0-5); Hemoglobin 11.4 g/dL (13.0-16.5); Lymphocyte # 0.98 X10^3/ul (0.83-4.51); Lymphocyte % 11.9 % (19-41); Mean Corp Hgb Conc 30.8 g/dL (32-36); Mean Corpuscular Hgb 28.7 pg (27.0-32.0); Mean Corpuscular Volume 93.2 fL (80-94); Mean Platelet Vol. 10.3 fl (6.2-12.0); Monocyte# 0.81 X10^3/uL; Monocyte% 9.9 % (0-10); NRBC Flagged by Analyzer 0 % (0-5); Neutrophil # 6.24 X10^3/uL (2.7-7.7); Neutrophil % 75.9 % (47-70); Platelet Count 114 K/mm3 (150-450); RBC Distribution Width CV 15.3 % (11.6-14.6); RBC Distribution Width SD 50.9 fl (35.1-43.9); Red Blood Count 3.97 M/mm3 (4.6-6.2); White Blood Count 8.2 K/mm3 (4.4-11.0)
[2021-04-01 17:41] LABS: Vitamin D,25 Hydroxy 37.4 ng/mL
[2021-04-01 17:45] LABS: AST(SGOT) 23 U/L (15-37); Alanine Aminotransfer ALT/SGPT 24 U/L (16-61); Albumin, Serum 3.3 g/dL (3.2-5.0); Alkaline Phosphatase 97 U/L (45-117); Anion Gap 4 (5-15); BUN 29 mg/dL (7-18); BUN/Creat Ratio 21.2 RATIO (10-20); Calcium,Total 8.6 mg/dL (8.5-10.1); Chloride 104 mmol/L (98-107); Creatinine, Serum 1.37 mg/dL (0.70-1.30); EST Glomerular Filtration Rate 53 mL/min (>60); Est Glom Filt Rate - Afr Amer 64 mL/min (>60); Globulin 3.2 g/dL (2.2-4.2); Glucose 96 mg/dL (74-106); Potassium 4.2 mmol/L (3.5-5.1); Protein, Total 6.5 g/dL (6.4-8.2); Sodium Level 138 mmol/L (136-145); Thyroid Stim Hormone (TSH) 1.48 uIU/mL (0.358-3.74)
== END ==
PROVIDERS: PCP Family Medicine Geriatric Medicine; Visit Provider Family Medicine Geriatric Medicine
DX: E55.9 Vitamin D deficiency, unspecified (principal); I10 Essential (primary) hypertension
CPT/HCPCS: 36415; 80053; 82306; 84443; 85025

== ENCOUNTER → 2021-04-05 15:22 | Outpatient (CLI) | payer MEDICARE, BC, SELFPAY ==
[2021-03-03 14:59] VITALS: BMI 22.7
--- NOTE | 2021-04-05 15:25 | RAD_ITS ---
STUDY: X-RAY CHEST REASON FOR EXAM: Male, 86 years old. SOB TECHNIQUE: PA and lateral views of the chest. COMPARISON: 12/21/2020 FINDINGS: Left subclavian triple lead AICD which is unchanged. Status post median sternotomy. The lungs are clear and expanded. There is no demonstrated pleural abnormality. Normal size heart. Normal mediastinum and chilo. Normal visualized pulmonary arteries. Normal visualized aortic arch and descending thoracic aorta. Normal visualized thoracic spine. Normal visualized ribs, clavicles, and shoulders. There is no demonstrated abnormality of the visualized soft tissue structures of the upper abdomen. RAD/Chest PA and Lateral IMPRESSION: No active disease. Electronically Signed: Frank Mohamud MD at 13:10 EDT Tel , Service support ,
== END ==
PROVIDERS: PCP Family Medicine Geriatric Medicine; Referring Provider Family Medicine Geriatric Medicine; Visit Provider Family Medicine Geriatric Medicine
DX: R06.02 Shortness of breath (principal)
CPT/HCPCS: 71046

== ENCOUNTER → 2021-04-13 13:31 | Outpatient (CLI) | payer MEDICARE, BC, SELFPAY ==
[2021-03-03 14:59] VITALS: BMI 22.7
== END ==
PROVIDERS: PCP Family Medicine Geriatric Medicine; Referring Provider Family Medicine Geriatric Medicine; Visit Provider Family Medicine Geriatric Medicine
DX: R68.83 Chills (without fever) (principal)
CPT/HCPCS: 87635; C9803; U0005; U0003

== ENCOUNTER → 2021-04-15 16:15 | Outpatient (CLI) | payer MEDICARE, BC, SELFPAY ==
[2021-03-03 14:59] VITALS: BMI 22.7
[2021-04-15 17:10] LABS: Anion Gap 5 (5-15); BUN 35 mg/dL (7-18); BUN/Creat Ratio 24.1 RATIO (10-20); Calcium,Total 9.1 mg/dL (8.5-10.1); Chloride 109 mmol/L (98-107); Creatinine, Serum 1.45 mg/dL (0.70-1.30); EST Glomerular Filtration Rate 49 mL/min (>60); Est Glom Filt Rate - Afr Amer 60 mL/min (>60); Glucose 106 mg/dL (74-106); Potassium 4.2 mmol/L (3.5-5.1); Sodium Level 139 mmol/L (136-145)
== END ==
PROVIDERS: PCP Family Medicine Geriatric Medicine; Visit Provider Family Medicine Geriatric Medicine
DX: N18.30 Chronic kidney disease, stage 3 unspecified (principal)
CPT/HCPCS: 36415; 80048

== ENCOUNTER → 2021-04-22 15:37 | Outpatient (CLI) | payer MEDICARE, BC, SELFPAY ==
[2021-03-03 14:59] VITALS: BMI 22.7
--- NOTE | 2021-04-22 15:41 | RAD_ITS ---
STUDY: X-RAY CHEST REASON FOR EXAM: Male, 86 years old. SOB TECHNIQUE: PA and lateral views of the chest. COMPARISON: 04/05/2021 FINDINGS: Left subclavian triple lead AICD which is unchanged. Status post median sternotomy. The lungs are clear and expanded. There is no demonstrated pleural abnormality. Normal size heart. Normal mediastinum and chilo. Normal visualized pulmonary arteries. Normal visualized aortic arch and descending thoracic aorta. Normal visualized thoracic spine. Normal visualized ribs, clavicles, and shoulders. There is no demonstrated abnormality of the visualized soft tissue structures of the upper abdomen. RAD/Chest PA and Lateral IMPRESSION: No active disease. Electronically Signed: Frank Mohamud MD at 16:52 EDT Tel , Service support ,
[2021-04-22 18:11] LABS: Anion Gap 5 (5-15); BUN 34 mg/dL (7-18); BUN/Creat Ratio 23.3 RATIO (10-20); Calcium,Total 8.7 mg/dL (8.5-10.1); Chloride 108 mmol/L (98-107); Creatinine, Serum 1.46 mg/dL (0.70-1.30); EST Glomerular Filtration Rate 49 mL/min (>60); Est Glom Filt Rate - Afr Amer 59 mL/min (>60); Glucose 86 mg/dL (74-106); Potassium 4.5 mmol/L (3.5-5.1); Sodium Level 138 mmol/L (136-145)
== END ==
LOC: POLAB3 15:38 → RAD 15:40
PROVIDERS: PCP Family Medicine Geriatric Medicine; Referring Provider Family Medicine Geriatric Medicine; Visit Provider Family Medicine Geriatric Medicine
DX: N18.30 Chronic kidney disease, stage 3 unspecified (principal); R06.89 Other abnormalities of breathing
CPT/HCPCS: 36415; 71046; 80048

== ENCOUNTER → 2021-04-29 15:50 | Outpatient (CLI) | payer MEDICARE, BC, SELFPAY ==
[2021-03-03 14:59] VITALS: BMI 22.7
--- NOTE | 2021-04-29 16:10 | RAD_ITS ---
STUDY: X-RAY - LEFT ANKLE REASON FOR EXAM: Male, 86 years old. Pain. TECHNIQUE: 3 view(s) of the ankle. COMPARISON: None. FINDINGS: Normal visualized distal tibia and fibula. Normal medial and lateral malleoli. Normal tibiotalar articulation and ankle mortise. Normal visualized talus and calcaneus. Mild arthrosis of the visualized subtalar, talonavicular, calcaneocuboid and tarsal articulations. The soft tissue structures are unremarkable. RAD/Ankle min 3 Views IMPRESSION: No acute fracture or dislocation. Electronically Signed: Jaleel Guerrero DO at 16:44 EDT Tel [phone], Service support ,
== END ==
PROVIDERS: PCP Family Medicine Geriatric Medicine; Referring Provider Family Medicine Geriatric Medicine; Visit Provider Family Medicine Geriatric Medicine
DX: M25.572 Pain in left ankle and joints of left foot (principal)
CPT/HCPCS: 73610

== ENCOUNTER → 2021-05-29 13:14 | Outpatient (CLI) | payer MEDICARE, BC, SELFPAY ==
[2021-05-29 13:49] LABS: ALB/GLOB Ratio 0.7 RATIO (0.9-2.4); AST(SGOT) 17 U/L (15-37); Alanine Aminotransfer ALT/SGPT 18 U/L (16-61); Albumin, Serum 3.2 g/dL (3.2-5.0); Alkaline Phosphatase 111 U/L (45-117); Anion Gap 6 (5-15); BUN 22 mg/dL (7-18); BUN/Creat Ratio 19.8 RATIO (10-20); Calcium,Total 9.1 mg/dL (8.5-10.1); Chloride 104 mmol/L (98-107); Creatinine, Serum 1.11 mg/dL (0.70-1.30); EST Glomerular Filtration Rate 67 mL/min (>60); Est Glom Filt Rate - Afr Amer 81 mL/min (>60); Globulin 4.6 g/dL (2.2-4.2); Glucose 137 mg/dL (74-106); Potassium 3.6 mmol/L (3.5-5.1); Protein, Total 7.8 g/dL (6.4-8.2); Sodium Level 139 mmol/L (136-145)
== END ==
PROVIDERS: PCP Family Medicine Geriatric Medicine; Referring Provider Internal Medicine Rheumatology; Visit Provider Internal Medicine Rheumatology
DX: M05.70 Rheumatoid arthritis with rheumatoid factor of unspecified site without organ or systems involvement (principal); M15.9 Polyosteoarthritis, unspecified; M21.40 Flat foot [pes planus] (acquired), unspecified foot; H35.30 Unspecified macular degeneration; K21.9 Gastro-esophageal reflux disease without esophagitis; I25.10 Atherosclerotic heart disease of native coronary artery without angina pectoris; I10 Essential (primary) hypertension; L12.0 Bullous pemphigoid; J44.9 Chronic obstructive pulmonary disease, unspecified; N04.1 Nephrotic syndrome with focal and segmental glomerular lesions; Z79.899 Other long term (current) drug therapy; Z95.0 Presence of cardiac pacemaker
CPT/HCPCS: 36415; 80053

== ENCOUNTER → 2021-06-17 11:50 | Outpatient (CLI) | payer MEDICARE, BC, SELFPAY ==
[2021-03-03 14:59] VITALS: BMI 22.7
--- NOTE | 2021-06-17 11:54 | CT_ITS ---
STUDY: CT CHEST WITHOUT CONTRAST REASON FOR EXAM: Male, 86 years old. COPD RADIATION DOSAGE (If Supplied By Facility): CTDIvol = ( 9.95 ) mGy, DLP = ( 402.62 ) mGycm TECHNIQUE: Transaxial imaging was performed without the administration of intravenous contrast material. Multiplanar coronal and sagittal images were reformatted. Individualized dose optimization techniques were used for this CT. COMPARISON: Comparison is made with prior study dated 11/17/2020. FINDINGS: A left-sided dual-chamber pacemaker is seen. There is enlargement of the right lobe of the thyroid with substernal extension. Within the, there is a 2.3 cm x 2.3 cm hypodense nodule. Mild degree of scarring at the right lung base. Stable to adjacent nodular densities in the anterior aspect of the right lower lobe. Small right pleural effusion. Sternal cerclage wires and vascular clips are present from a prior sternotomy and coronary artery bypass graft procedure (CABG). There are calcifications of the coronary arteries. There are multiple small lymph nodes within the mediastinum, which are normal in size and morphology most compatible with reactive lymph hyperplasia. Normal hilar regions. Normal unenhanced pulmonary arteries. There is atherosclerotic calcification of the aortic arch with tortuosity and elongation of the aortic arch and descending thoracic aorta. There is evidence of a dilatation of the distal thoracic aorta at the level of the diaphragmatic hiatus. Intraluminal stent is seen in the distal thoracic and proximal abdominal aorta. There are multi-level degenerative changes of the thoracic spine. Moderate sized bilateral hernia. CT/Chest without Contrast IMPRESSION: Small right pleural effusion with right basilar scarring. Stable appearance of the 2 small nodules in the anterior aspect of the right lower lobe. Hiatal hernia. Stable appearance of the thoracic aortic aneurysm. Electronically Signed: Jani Bills MD at 14:38 EDT , Service support ,
--- NOTE | 2021-06-17 15:39 | SP.MBSS_ITS ---
Modified Barium Swallow - Patient Information Study Date: 06/17/21 Study Time: 13:00 Direct Billable Minutes: 159 Total Minutes procedure & reportin Diagnosis: dysphagia, dyspnea Referring Physician: Adiel Henriquez V Reason for Referral: Objective assessment of swallow function under fluoroscopy recommended in patient w/ COPD/dyspnea to determine the extent to which oropharyngeal swallow function my be impacting respiratory function and elucidate need for diet modification, compensatory strategy use and/or additional intervention for management of dysphagia. Medical History: Anemia; Atherosclerotic heart disease of [place] coronary artery without angina pectoris; Benign essential hypertension; Biventricular implantable cardioverter- defibrillator in situ; Bullous pemphigoid; Chest pain; Chronic atrial fibrillation; Chronic obstructive lung disease; Chronic systolic (congestive) heart failure; Confusion; Dilated cardiomyopathy; Essential hypertension; History of anemia; History of left heart catheterization (LHC); Hyperlipidemia; Presence of stent in coronary artery; PVD (peripheral vascular disease); Rheumatoid arthritis; Thrombocytopenia; UTI (urinary tract infection) - past medical history obtained from review of medical record. Patient's accompanied him to this study and further endorses additional diagnoses of [place]/presbycusis and Alzheimer's dementia. Current Diet Ordered: regular textures/thin liquids Dentition: Edentulous - lower, Upper Dentures Mental Status: Impaired - [place] w/ difficulty following commands/recalling instruction d/t dementia Respiratory Status: Oxygenating on Room Air - Penetration-Aspiration Scale Penetration-Aspiration Scale: OBJECTIVE ASSESSMENT OF SWALLOW FUNCTION (QUANTITATIVE ? PER TRIAL): PENETRATION / ASPIRATION SCALE (PALMER): 1 = does not enter airway 2 = enters airway/above vocal folds/ejected 3 = enters airway/above vocal folds/not ejected 4 = enters airway/contacts vocal folds/ejected 5 = enters airway/contacts vocal folds/not ejected 6 = enters airway/below vocal folds/ejected 7 = enters airway/below vocal folds/not ejected despite effort 8 = enters airway/below vocal folds/no effort - Penetration-Aspiration Scale Score Thin Liquid via teaspoon Result: 1= does not enter airway Thin Liquid via teaspoon Trial 2 Result: 1= does not enter airway Thin Liquid via small single sip from cup Result: 1= does not enter airway Thin Liquid via sequential sips from cup Result: 3= enters airways/above vocal folds/not ejected Thin Liquid via single sip from straw Result: 3= enters airways/above vocal folds/not ejected [place] Thick Liquid via small single sip from cup Result: 1= does not enter airway [place] Thick Liquid via small single sip from cup Result: 1= does not enter airway Pudding Result: 1= does not enter airway Cookie Result: 1= does not enter airway Thin Liquid via small single sip from cup Trial 2 Result: 1= does not enter airway - Oral Phase Labial Seal: No Labial Escape Tongue Control During Bolus Hold: Escape to lateral buccal cavity/floor of mouth Bolus Preparation/Mastication: Slow prolonged chewing/mashing with complete recollection Bolus Transport/Lingual Motion: Slowed tongue motion Oral Residue: Residue collection on oral structures - Pharyngeal Phase Initiation of Pharyngeal Swallow: Bolus head in valleculae Soft Palate Elevation: No bolus between soft palate and pharyngeal wall Laryngeal Elevation: Min superior movement thyroid cart/min apprx aryte cart- epig petiole Anterior Hyoid Excursion: Partial anterior movement Epiglottic Movement: Complete inversion Laryngeal Vestibule Closure at Height of Swallow: Incomplete; narrow column of air/contrast in laryngeal vestibule Pharyngeal Stripping Wave: Present - complete Pharyngoesophageal Segment Opening: Parital distension and partial duration; parital obstruction of flow Tongue Base Retraction: Narrow column of contrast between tongue base & post. pharyngeal wall Pharyngeal Residue: Collection of residue within or on pharyngeal structures - Esophageal Phase Esophageal Clearance: Esophageal retention - Diagnosis/Impression Diagnosis: moderate oropharyngeal dysphagia (R13.12) Impression: The oral phase is primarily marked by: * mastication inefficiency (moderate) likely d/t lack of lower dentition, only wearing upper denture plate w/ prolonged and incomplete mastication; solid pieces remaining insufficiently chewed * suboptimal lingual control (mild) w/ liquid spillage to floor of mouth * poor oral clearance resulting in oral residue post deglutition, requiring additional swallow/liquid wash to clear The pharyngeal phase is marked by: * suboptimal bolus location upon swallow onset w/ large volume/sequential swallow of thin liquid and reduced closure of the airway during deglutition contributing to prandial laryngeal vestibule penetration w/out ejection * noted insufficient/inconsistent laryngeal vestibule pressure generated to expel penetrated material * although penetrated contrast did not reach the vocal folds during the brief duration of this study, it is likely that c * reduced closure of the airway during deglutition attributed to minimal superior thyroid cartilage elevation (elevated ~1/2 the distance of 1 cervical vertebrae) and reduced anterior hyoid excursion * reduced tongue base retraction and pharyngeal contraction resulted in ph aryngeal residue retention lining the past of tongue, valleculae, aryepiglottic folds and pyriform sinuses The esophageal phase is marked by: * narrowing of the esophagus, consistent w/ appearance of esophageal ring/webbing see last image saved in PACS/[employer] * screening for esophageal clearance revealed mild retention w/ mild degree of retrograde bolus flow Compensatory strategy effects: * reduced bolus volume = effective to eliminate laryngeal vestibule penetration * double swallow = effective to clear oropharyngeal residue * cough/re-swallow = somewhat effective, partially cleared penetration from the laryngeal vestibule - Recommendations Comment: Diet Texture: soft and bite sized Liquid Consistency: thin liquids Recommended Compensatory Strategies and Considerations * cut solids into small bite sized pieces * avoid mixed consistencies (solids + liquids) i.e. cereal w/ mild, soup w/ solid pieces in it * avoid dry/crunchy items and raw fruits/veggies which may be difficult to chew given the patient's propensity for a rapid rate of intake and lack of lower dentition * SMALL SIPS - ONE SIP AT A TIME * avoid sequential swallows of liquids * take oral medications one at a time w/ a single sip of liquid, if unable, consider taking oral medications whole w/ yogurt/pudding * eat slowly * sit upright at 90 degrees for PO intake and remain upright for at least 30 minutes after intake (GERD precautions) * encourage the patient to cough and re-swallow if a wet/gurgly vocal quality is noted w/ intake Recommend Repeat Modified Barium Swallow: No Need for Skilled Speech Therapy Services: No Comment: The patient demonstrated difficulty following direction and retaining information. Discussed recommendation for diet texture modification and compensatory strategy use only, as the patient would be highly unlikely to benefit from skilled ST intervention focusing on oropharyngeal strengthening exercises d/t dementia diagnosis. agrees that direct intervention would likely be frustrating and ineffective. Images were reviewed w/ the patient and his , Clementine Pride, following MBS conclusion. Extended time spend providing education re: anatomy/physiology of swallow function and of deficits identified which place the patient at increased risk for penetration/aspiration and the subsequent complications of aspiration. Although aspiration was not identified during this study, it can not be ruled out. Further discussed how COPD impacts swallow function and can place the patient at an increased risk for silent aspiration. Provided written details to reinforce all verbal education provided. The patient's was able to comprehend and express recommended intake precautions detailed above with sufficient detail. plans to supervise PO intake and provide verbal cues to increase patient's likelihood of compliance. No further skilled speech-language services warranted at this time targeting dysphagia. - Status Active ST Patient: Active - Contact Information [facility] Speech Therapy:: Cate Larios M.A., CCC-RESUME WRITER [facility] [address] [place] [address] x [phone] [email or web address] 06/17/21 15:39
== END ==
PROVIDERS: PCP Family Medicine Geriatric Medicine; Referring Provider Internal Medicine Pulmonary Disease; Visit Provider Internal Medicine Pulmonary Disease
DX: J44.9 Chronic obstructive pulmonary disease, unspecified (principal); R06.00 Dyspnea, unspecified; R91.1 Solitary pulmonary nodule; R13.10 Dysphagia, unspecified
CPT/HCPCS: 71250; 74230; 92611

== ENCOUNTER → 2021-07-01 15:16 | Outpatient (CLI) | payer MEDICARE, BC, SELFPAY ==
[2021-07-01 16:08] LABS: Absolute Lymphocyte Count 0.61 X10^3/uL (0.83-4.51); Basophil# 0.04 X10^3/uL; Basophil% 0.5 % (0-1); Eosinophil# 0.21 X10^3/uL; Eosinophils% 2.8 % (0-5); Hematocrit 37.7 % (40-54); Lymphocyte # 0.61 X10^3/ul (0.83-4.51); Lymphocyte % 8.2 % (19-41); Mean Corp Hgb Conc 31.8 g/dL (32-36); Mean Corpuscular Hgb 28.6 pg (27.0-32.0); Mean Corpuscular Volume 89.8 fL (80-94); Mean Platelet Vol. 10.2 fl (6.2-12.0); Monocyte% 6.7 % (0-10); NRBC Flagged by Analyzer 0 % (0-5); Neutrophil # 6.03 X10^3/uL (2.7-7.7); Neutrophil % 81.1 % (47-70); Platelet Count 186 K/mm3 (150-450); RBC Distribution Width CV 17.1 % (11.6-14.6); White Blood Count 7.4 K/mm3 (4.4-11.0)
[2021-07-01 16:28] LABS: Vitamin D,25 Hydroxy 60.5 ng/mL
[2021-07-01 16:43] LABS: ALB/GLOB Ratio 0.7 RATIO (0.9-2.4); AST(SGOT) 24 U/L (15-37); Alanine Aminotransfer ALT/SGPT 20 U/L (16-61); Albumin, Serum 2.8 g/dL (3.2-5.0); Alkaline Phosphatase 106 U/L (45-117); Anion Gap 5 (5-15); BUN 22 mg/dL (7-18); BUN/Creat Ratio 19.6 RATIO (10-20); Calcium,Total 8.9 mg/dL (8.5-10.1); Chloride 104 mmol/L (98-107); Creatinine, Serum 1.12 mg/dL (0.70-1.30); EST Glomerular Filtration Rate 66 mL/min (>60); Est Glom Filt Rate - Afr Amer 80 mL/min (>60); Glucose 116 mg/dL (74-106); Potassium 3.6 mmol/L (3.5-5.1); Protein, Total 6.8 g/dL (6.4-8.2); Sodium Level 138 mmol/L (136-145); Thyroid Stim Hormone (TSH) 1.92 uIU/mL (0.358-3.74)
== END ==
PROVIDERS: PCP Family Medicine Geriatric Medicine; Visit Provider Family Medicine Geriatric Medicine
DX: E55.9 Vitamin D deficiency, unspecified (principal); I10 Essential (primary) hypertension
CPT/HCPCS: 36415; 80053; 82306; 84443; 85025

== ENCOUNTER 2021-07-04 21:36 | Emergency (ER) | payer MEDICARE, BC, SELFPAY ==
[2021-07-04 21:36] VITALS: BP 192/80; PULSE 60; RESP 22; TEMP 36.2; O2SAT 96; BMI 23.3
[2021-07-04 21:52] VITALS: TEMP 36.2
--- NOTE | 2021-07-04 22:16 | CT_ITS ---
HISTORY: Status post fall, neck pain TECHNIQUE: Helically acquired images were obtained of the cervical spine. 2-D reformatted images were reviewed. A radiation dose optimization technique was used for the scan. # of images incl. paperwork: 2. IV contrast dosage and agent: None. COMPARISON: CTA head and neck from 04/20/20. FINDINGS: No cervical spinal fracture, traumatic subluxation or prevertebral soft tissue swelling. Mild lateral curvature and tilt of cervical spine with minimal chronic-appearing grade 1 anterolisthesis of C7 over T1. Multilevel degenerative facet arthropathy and endplate osteophytes with moderate degenerative disc space narrowing at C3-4 and C5-6. No high-grade spinal canal stenosis. Emphysematous changes within upper lungs but no pneumothorax detected. Left AICD in place. Persistent large heterogeneous mass/nodule within right lobe of thyroid gland containing a few small calcifications, measuring up to [address]/Spine Cervical without Contras IMPRESSION: No evidence of acute cervical spinal injury. Degenerative changes along cervical spine, as described above. Large heterogeneous mass/nodule within right lobe of thyroid gland is grossly stable. Follow-up as clinically warranted. 3. Pulmonary emphysema. Individualized dose optimization techniques were used for this CT. at 0348 Reported and signed by: Ag Cruz MD Electronically Signed: Ag Cruz MD at 3:47 EDT Tel , Service support ,
--- NOTE | 2021-07-04 22:16 | CT_ITS ---
HISTORY: Injury. Status post fall with shoulder and neck pain. Takes aspirin. History of dementia and Alzheimer's. EXAMINATION: CT Head or Brain W/O Contrast Injection TECHNIQUE: Multiple axial images were obtained of the brain without intravenous contrast. A radiation dose optimization technique was used for this scan. IV Contrast dosage and agent: None. COMPARISON: Head CT from 04/20/20 FINDINGS: BRAIN PARENCHYMA: No intra- or extra-axial hemorrhage. 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 No evidence of acute major territorial infarct. No intracranial mass or mass effect. There is mild, chronic hypoattenuation of the deep cerebral white matter. Chronic involutional changes are noted. CSF SPACES: Prominent cerebral sulci and extra-axial spaces secondary to involutional changes. No hydrocephalus. Basal cisterns are patent. Intracranial atherosclerotic calcifications. CALVARIUM, SKULL BASE, PARANASAL SINUSES AND MASTOID AIR CELLS: Intact calvarium. No acute findings with paranasal sinuses. Mastoid air cells are well pneumatized. ORBITS: No acute findings. Postop cataract surgery bilaterally. CT/Brain/Head without Contrast IMPRESSION: Brain atrophy and chronic ischemic changes. No evidence of acute intracranial process. Individualized dose optimization techniques were used for this CT. at 0341 Reported and signed by: Ag Cruz MD Electronically Signed: Ag Cruz MD at 3:39 EDT Tel , Service support ,
--- NOTE | 2021-07-04 22:18 | EX.ED.DYSGE1 ---
HPI History of Present Illness Chief Complaint: Fall Informant: patient, spouse/S.O. and EMS Narrative Narrative: 86-year-old male with a history of Alzheimer's presents following a fall. states that he was coughing last night and around 4 in the morning he fell. She is unable to get him up and he did not wish her to call EMS. He has Alzheimer's. She stayed with him throughout the day putting pills around him given him coffee and his medications but no significant food intake at his request. She states that finally tonight she called EMS and they transported him in. She denies noticing any significant injuries to him. She tells me that she is comfortable taking him home if he can walk. They saw their primary care physician on . They did speak about falls and this will be the first time he has fallen and has been unable to get up. [facility] Medical History (Updated 07/04/21 @ 23:[address] Luis Carlos Peng, ) Anemia Atherosclerotic heart disease of [place] coronary artery without angina pectoris Benign essential hypertension Biventricular implantable cardioverter-defibrillator in situ Bullous pemphigoid Chest pain Chronic atrial fibrillation Chronic obstructive lung disease Chronic systolic (congestive) heart failure Confusion Dilated cardiomyopathy Essential hypertension History of anemia History of left heart catheterization (LHC) (~04/22/14) Hyperlipidemia Presence of stent in coronary artery (~12/22/09) PVD (peripheral vascular disease) Rheumatoid arthritis Thrombocytopenia UTI (urinary tract infection) Home Medications aspirin 81 mg PO DAILY 10/29/13 [History Last Taken 05/28/15] tamsulosin 0.4 mg PO DAILY 05/29/15 [History Last Taken 05/28/15 11:00] nitroglycerin 0.4 mg SUBLINGUAL Q5M PRN 07/07/15 [History Last Taken Unknown] leucovorin calcium 15 mg tablet 15 mg PO SA 28 Days #4 05/16/18 [History Last Taken Unknown] memantine 10 mg tablet 10 mg PO BID 02/26/20 [History Last Taken Unknown] albuterol sulfate 90 mcg/actuation aerosol inhaler 2 puff INHALATION Q6H PRN 10/13/20 [History Last Taken Unknown] methotrexate sodium 2.5 mg tablet 15 mg PO QWEEK 30 Days #30 tab 10/13/20 [History Last Taken Unknown] multivitamin 1 tab PO QAM 10/13/20 [History Last Taken Unknown] pantoprazole 20 mg tablet,delayed release 20 mg PO DAILY tab 10/13/20 [History Last Taken Unknown] tramadol 50 mg tablet 50 - 100 mg PO Q4H PRN PRN 10/13/20 [History Last Taken Unknown] albuterol sulfate 0.63 mg/3 mL solution for nebulization 0.63 mg INHALATION Q6H PRN 03/03/21 [History Last Taken Unknown] furosemide 20 mg tablet 40 mg PO DAILY tab 03/03/21 [History Last Taken Unknown] potassium chloride 20 mEq tablet,extended release(part/cryst) 20 meq PO DAILY tab 03/03/21 [History Last Taken Unknown] hoipoxuchse-lnwnkkcvp-hseekjem [Trelegy Ellipta] 1 inh INHALATION DAILY 07/04/21 [History Last Taken Unknown] metoprolol tartrate 50 mg PO DAILY 07/04/21 [History Last Taken Unknown] mirtazapine 7.5 mg PO DAILY 07/04/21 [History Last Taken Unknown] tiotropium bromide [Spiriva with HandiHaler] 1 cap INHALATION DAILY 07/04/21 [History Last Taken Unknown] Allergy/AdvReac Type Severity Reaction Status Date / Time ciprofloxacin Allergy Other Verified 03/03/21 15:05 digoxin Allergy Other Verified 03/03/21 15:05 losartan [Losartan] Allergy Unknown Verified 03/03/21 15:05 minocycline Allergy Hives Verified 03/03/21 15:05 rivaroxaban [From Xarelto] Allergy Unknown Verified 03/03/21 15:05 promethazine [From Phenergan] AdvReac Severe Unknown Verified 03/03/21 15:05 escitalopram AdvReac Intermediate mental Verified 03/03/21 15:05 status change amiodarone AdvReac Other Verified 03/03/21 15:05 Family History Unknown No problems noted. Surgical History History of coronary artery bypass surgery (~10/18/12) History of hand surgery History of hip replacement History of tonsillectomy Hx of atrioventricular node ablation (~09/09/14) Hx of cataract surgery Presence of coronary angioplasty implant and graft (~12/22/09) Social History Smoking Status: Former smoker how long ago did patient quit smokin years ago alcohol intake: never substance use type: does not use caffeine: Yes Type: coffee Number of servings: 2 ROS ROS ED Constitutional Constitutional ED: Denies chills or weight loss Eyes Eyes: Denies change in vision or diplopia ENT ENT ED: Denies ear pain, rhinorrhea or sore throat Cardiovascular Cardiovascular: Denies chest pain, orthopnea, palpitations or racing heartbeat Respiratory/Chest Respiratory/Chest: Denies cough, dyspnea or orthopnea Gastrointestinal Gastrointestinal: Denies abdominal pain, diarrhea, nausea or vomiting Genitourinary Genitourinary ED: Denies dysuria, hematuria or urinary frequency Musculoskeletal Musculoskeletal: Denies arthralgias or myalgias Integumentary Denies abscess or rash Neurologic Neurologic: Denies headache(s) or weakness Psychiatric Psychiatric: Denies anxiety, depression, suicidal ideation or suicidal thoughts Endocrine Endocrinology: Denies polydipsia, polyphagia or polyuria Allergic/Immunologic Allergic/Immunologic ED: Denies mouth swelling, tongue swelling or urticaria EXAM Physical Exam Const Vital Signs: 07/04/21 21:36 07/04/21 21:52 07/04/21 23:31 Temperature 97.2 F L 97.1 F L Temperature Source Temporal Pulse Rate 60 60 Respiratory Rate 22 H 16 Respiratory Effort Normal Respiratory Depth Normal Respiratory Pattern Normal Blood Pressure 192/80 H 164/76 H Blood Pressure Mean 117 105 Pulse Ox 96 98 Oxygen Delivery Method Room Air Room Air Room Air Positive well nourished and well developed General Appearance ED: well developed HEENT Reports normocephalic, head/scalp atraumatic and moist mucous membranes Eyes PERRL and EOMs intact bilaterally Neck no lymphadenopathy, supple and no JVD Resp normal respiratory effort and clear to auscultation bilaterally Cardio regular rate, regular rhythm and no murmurs GI normal to inspection, nondistended, normoactive bowel sounds and non-tender Palpation: soft Back/Spine no CVA tenderness and normal ROM Extremity normal to inspection General Extremety ED: Negative for edema General Extremity: Negative for edema Neuro CN's II-XII intact bilaterally Sensorium / Orientation: alert and orientation impaired Motor Exam: strength 5/5 throughout Psych mental status grossly normal Mood & Affect: Negative for depressed or tearful Skin no rashes or lesions noted Skin Narrative: There are various areas of ecchymosis on the arms and the legs of different ages of healing. states that this is normal for him MDM MDM MDM Narrative Medical decision making narrative: Interpretation of the chest x-ray is no acute process. CT of the head and cervical spine were negative. The readings were delayed due to IT issues. Family was updated. Basic blood work showed a total CK of 109. Otherwise the blood work appeared rather reassuring. Patient was able to ambulate to the bathroom. The is comfortable taking the patient home. Plan will be to discharge him home. Return if worsening or concerns Lab Data Attestation: I reviewed the patient's lab results. Labs: Laboratory Results - last 24 hr 07/04/21 07/04/21 07/04/21 21:50 21:50 21:50 WBC 7.8 RBC 3.96 L Hgb 11.8 L Hct 36.3 L MCV 91.7 MCH 29.8 MCHC 32.5 RDW Std Deviation 54.4 H RDW Coeff of Ruslan 17.2 H Plt Count 187 MPV 10.1 Immature Gran % (Auto) 0.800 Neut % (Auto) 81.5 H Lymph % (Auto) 8.4 L [place] % (Auto) 8.6 Eos % (Auto) 0.4 Baso % (Auto) 0.3 Absolute Neuts (auto) 6.4 Absolute Lymphs (auto) 0.65 L Nucleated RBC % 0 Sodium 139 Potassium 3.5 Chloride 104 Carbon Dioxide 27.0 Anion Gap 8 BUN 23 H Creatinine 0.98 Estim Creat Clear Calc 54.29 Est GFR (MDRD) Af Amer 93 Est GFR (MDRD) Non-Af 77 BUN/Creatinine Ratio 23.4 H Glucose 117 H Calcium 9.3 Total Bilirubin 0.90 AST 28 ALT 17 Alkaline Phosphatase 104 Total Creatine Kinase 109 Troponin I High Sens 24 Total Protein 7.1 Albumin 3.0 L Globulin 4.1 Albumin/Globulin Ratio 0.7 L Urine Color Urine Clarity Urine pH Ur Specific [place] Urine Protein Urine Glucose (UA) Urine Ketones Urine Occult Blood Urine Nitrite Urine Bilirubin Urine Urobilinogen Ur Leukocyte Esterase Urine RBC Urine WBC Ur Squamous Epith Cells Urine Bacteria Urine Mucus 07/04/21 22:40 WBC RBC Hgb Hct MCV MCH MCHC RDW Std Deviation RDW Coeff of [place] Plt Count MPV Immature Gran % (Auto) Neut % (Auto) Lymph % (Auto) [place] % (Auto) Eos % (Auto) Baso % (Auto) Absolute Neuts (auto) Absolute Lymphs (auto) Nucleated RBC % Sodium Potassium Chloride Carbon Dioxide Anion Gap BUN Creatinine Estim Creat Clear Calc Est GFR (MDRD) Af Amer Est GFR (MDRD) Non-Af BUN/Creatinine Ratio Glucose Calcium Total Bilirubin AST ALT Alkaline Phosphatase Total Creatine Kinase Troponin I High Sens Total Protein Albumin Globulin Albumin/Globulin Ratio Urine Color Yellow Urine Clarity Clear Urine pH 6.5 Ur Specific [place] 1.010 Urine Protein 30 H Urine Glucose (UA) Normal Urine Ketones Negative Urine Occult Blood 50 H Urine Nitrite Negative Urine Bilirubin Negative Urine Urobilinogen Normal Ur Leukocyte Esterase Negative Urine RBC 0-5 SEEN Urine WBC 0 SEEN Ur Squamous Epith Cells 0 SEEN Urine Bacteria 0 SEEN Urine Mucus 0 SEEN Discharge Plan Triage Chief Complaint: Fall ED Provider: Luis Carlos Peng Dx/Rx/DC Orders Clinical Impression: Alzheimer's dementia, Fall, Multiple contusions Instructions: ED Fall Prevention Prescriptions: No Action leucovorin calcium 15 mg tablet 15 mg PO SA 28 Days Qty: 4 RF: 0 Hold Instructions: decreased kidney function methotrexate sodium 2.5 mg tablet 15 mg PO QWEEK 30 Days Qty: 30 RF: 0 Hold Instructions: decreased kidney function memantine 10 mg tablet 10 mg PO BID RF: 0 furosemide 20 mg tablet 40 mg PO DAILY RF: 0 potassium chloride 20 mEq tablet,ER particles/crystals 20 meq PO DAILY RF: 0 pantoprazole 20 mg tablet,delayed release (DR/EC) 20 mg PO DAILY RF: 0 albuterol sulfate 90 mcg/actuation HFA aerosol inhaler 2 puff INHALATION Q6H PRN (Reason: Shortness Of Breath) RF: 0 multivitamin Tablet 1 tab PO QAM RF: 0 albuterol sulfate 0.63 mg/3 mL solution for nebulization 0.63 mg inhalation Q6H PRN (Reason: Shortness Of Breath) RF: 0 aspirin 81 MG tablet,chewable 81 mg PO DAILY RF: 0 tramadol 50 mg tablet 50 - 100 mg PO Q4H PRN PRN (Reason: Pain) RF: 0 tamsulosin 0.4 MG capsule 0.4 mg PO DAILY RF: 0 nitroglycerin 0.4 MG tablet 0.4 mg SUBLINGUAL Q5M PRN (Reason: Chest Pain) RF: 0 Spiriva with HandiHaler 18 mcg Capsule, W/Inhalation Device 1 cap INHALATION DAILY RF: 0 mirtazapine 7.5 mg Tablet 7.5 mg PO DAILY RF: 0 Trelegy Ellipta 100-62.5-25 mcg Blister With Device 1 inh INHALATION DAILY RF: 0 metoprolol tartrate 25 mg tablet 50 mg PO DAILY RF: 0 Primary Care Provider: Anuel Garcia Chi Referrals: Anuel Garcia Chi, MD [Primary Care Provider] - As Needed Disposition Disposition: Home, Self Care
[2021-07-04 22:26] LABS: Absolute Lymphocyte Count 0.65 X10^3/uL (0.83-4.51); Absolute Neutrophil Count 6.4 X10^3/uL (2.0-7.7); Basophil# 0.02 X10^3/uL; Basophil% 0.3 % (0-1); Eosinophil# 0.03 X10^3/uL; Eosinophils% 0.4 % (0-5); Hematocrit 36.3 % (40-54); Hemoglobin 11.8 g/dL (13.0-16.5); Lymphocyte # 0.65 X10^3/ul (0.83-4.51); Lymphocyte % 8.4 % (19-41); Mean Corp Hgb Conc 32.5 g/dL (32-36); Mean Corpuscular Hgb 29.8 pg (27.0-32.0); Mean Corpuscular Volume 91.7 fL (80-94); Mean Platelet Vol. 10.1 fl (6.2-12.0); Monocyte# 0.67 X10^3/uL; Monocyte% 8.6 % (0-10); NRBC Flagged by Analyzer 0 % (0-5); Neutrophil # 6.35 X10^3/uL (2.7-7.7); Neutrophil % 81.5 % (47-70); Platelet Count 187 K/mm3 (150-450); RBC Distribution Width CV 17.2 % (11.6-14.6); RBC Distribution Width SD 54.4 fl (35.1-43.9); Red Blood Count 3.96 M/mm3 (4.6-6.2); White Blood Count 7.8 K/mm3 (4.4-11.0)
--- NOTE | 2021-07-04 22:30 | RAD_ITS ---
HISTORY: cough EXAMINATION/TECHNIQUE: XR Chest 1 View AP view COMPARISON: Two-view chest x-ray from 04/22/21 FINDINGS: LINES/DEVICES: Left AICD in place. Sternotomy wires and [employer] teacher leads are also noted. LUNGS: No pulmonary edema. Retrocardiac opacity centered left of midline likely moderate to large hiatal hernia. Mild basilar atelectatic changes also noted. No sizable pleural effusion. No pneumothorax detected. MEDIASTINUM AND CARDIOVASCULAR STRUCTURES: Heart size within normal limits for imaging technique. Status post CABG. Atherosclerotic calcifications along the aorta. BONES AND SOFT TISSUES: Skeletal degenerative changes. RAD/Chest 1 View (Portable) IMPRESSION: Moderate to large hiatal hernia with mild basilar atelectasis. at 0358 Reported and signed by: Ag Cruz MD Electronically Signed: Ag Cruz MD at 3:57 EDT Tel , Service support ,
[2021-07-04 22:40] LABS: ALB/GLOB Ratio 0.7 RATIO (0.9-2.4); AST(SGOT) 28 U/L (15-37); Alanine Aminotransfer ALT/SGPT 17 U/L (16-61); Alkaline Phosphatase 104 U/L (45-117); Anion Gap 8 (5-15); BUN 23 mg/dL (7-18); BUN/Creat Ratio 23.4 RATIO (10-20); Calcium,Total 9.3 mg/dL (8.5-10.1); Chloride 104 mmol/L (98-107); Creatinine, Serum 0.98 mg/dL (0.70-1.30); EST Glomerular Filtration Rate 77 mL/min (>60); Est Glom Filt Rate - Afr Amer 93 mL/min (>60); Estimated Creatinine Clearance 54.29 ml/min; Globulin 4.1 g/dL (2.2-4.2); Glucose 117 mg/dL (74-106); Potassium 3.5 mmol/L (3.5-5.1); Protein, Total 7.1 g/dL (6.4-8.2); Sodium Level 139 mmol/L (136-145); Troponin-I HS 24 pg/mL (3.0-78.0)
[2021-07-04 22:41] LABS: CPK Total, Creatine Kinase 109 U/L (39-308)
[2021-07-04 22:46] LABS: Bacteria 0 SEEN /hpf (None Seen); Mucous, Urine 0 SEEN /hpf (<or=2+); Squamous Epithelial Cells - UA 0 SEEN /hpf (0-5); White Blood Cells 0 SEEN /hpf (0-5)
[2021-07-04 22:48] LABS: Color, Urine Yellow (Yellow); Glucose, Dipstick Normal (Normal); Ketone-Dipstick Negative (Negative); Leukocyte Esterase-Dipstick Negative /ul (Negative); Nitrite-Dipstick Negative (Negative); Occult Blood-Urine 50 /ul (Negative); Protein-Dipstick 30 mg/dl (Negative); Urine Bilirubin Dipstick Negative (Negative); Urine Clarity Clear (Clear); Urine Urobilinogen Normal (Normal); Urine pH 6.5 (5.0 - 8.0)
[2021-07-04 22:54] LABS: Red Blood Cells-Urine 0-5 SEEN /hpf (0-5)
[2021-07-04 23:31] VITALS: BP 164/76; PULSE 60; RESP 16; O2SAT 98
[2021-07-05 01:51] VITALS: BP 159/54; PULSE 60; RESP 17; O2SAT 97
== END 2021-07-05 02:23 | disposition home or self-care (01) ==
PROVIDERS: Emergency Provider Emergency Medicine; PCP Family Medicine Geriatric Medicine
DX: G30.9 Alzheimer's disease, unspecified (principal); F02.80 Dementia in other diseases classified elsewhere, unspecified severity, without behavioral disturbance, psychotic disturbance, mood disturbance, and anxiety; I25.10 Atherosclerotic heart disease of native coronary artery without angina pectoris; I11.0 Hypertensive heart disease with heart failure; I50.22 Chronic systolic (congestive) heart failure; I42.0 Dilated cardiomyopathy; I48.20 Chronic atrial fibrillation, unspecified; J44.9 Chronic obstructive pulmonary disease, unspecified; Z79.82 Long term (current) use of aspirin; Z79.899 Other long term (current) drug therapy; Z87.891 Personal history of nicotine dependence; Z95.5 Presence of coronary angioplasty implant and graft; Z95.810 Presence of automatic (implantable) cardiac defibrillator; W19.XXXA Unspecified fall, initial encounter
CPT/HCPCS: 70450; 71045; 72125; 80053; 81001; 82550; 84484; 85025; 96360; 96361; 99285; J7030; A4216

== ENCOUNTER → 2021-07-08 16:28 | Outpatient (CLI) | payer MEDICARE, BC, SELFPAY ==
--- NOTE | 2021-07-08 16:33 | RAD_ITS ---
STUDY: X-RAY CHEST REASON FOR EXAM: Male, 86 years old. Fever and cough TECHNIQUE: PA and lateral views of the chest. COMPARISON: 07/04/2021 FINDINGS: Stable appearance of a left subclavian pacemaker Lungs are mildly hyperexpanded. Chronic interstitial changes noted particularly in the lung bases without a superimposed infiltrate. There is stable blunting of the right costophrenic angle which I suspect may be due to previous surgery. Sternal cerclage wires and vascular clips are present from a prior sternotomy and coronary artery bypass graft procedure (CABG). Normal mediastinum and chilo. Normal visualized pulmonary arteries. There is atherosclerotic calcification of the aortic arch with tortuosity. There are diffuse degenerative changes of the visualized thoracic spine. Normal visualized ribs, clavicles, and shoulders. There is a retrocardiac hiatal hernia. RAD/Chest PA and Lateral IMPRESSION: Mildly hyperexpanded lungs with chronic interstitial changes, particularly in the lung bases. Remote CABG Hiatal hernia Electronically Signed: Rich Rose MD at 17:05 EDT , Service support ,
== END ==
PROVIDERS: PCP Family Medicine Geriatric Medicine; Referring Provider Family Medicine Geriatric Medicine; Visit Provider Family Medicine Geriatric Medicine
DX: R06.02 Shortness of breath (principal)
CPT/HCPCS: 71046

== ENCOUNTER → 2021-07-14 14:30 | Outpatient (CLI) | payer MEDICARE, BC, SELFPAY | PROVIDERS: PCP Family Medicine Geriatric Medicine; Visit Provider Family Medicine Geriatric Medicine | DX: R68.83 Chills (without fever) (principal) | CPT/HCPCS: 87635; C9803; U0005; U0003 ==

== ENCOUNTER → 2021-07-26 16:31 | Outpatient (CLI) | payer MEDICARE, BC, SELFPAY ==
[2021-07-26 17:48] LABS: Absolute Neutrophil Count 4.5 X10^3/uL (2.0-7.7); Basophil# 0.03 X10^3/uL; Basophil% 0.5 % (0-1); Eosinophil# 0.35 X10^3/uL; Eosinophils% 5.9 % (0-5); Hematocrit 38.7 % (40-54); Lymphocyte % 8.4 % (19-41); Mean Corpuscular Hgb 29.2 pg (27.0-32.0); Mean Corpuscular Volume 94.2 fL (80-94); Mean Platelet Vol. 10.7 fl (6.2-12.0); Monocyte# 0.52 X10^3/uL; Monocyte% 8.7 % (0-10); NRBC Flagged by Analyzer 0 % (0-5); Neutrophil # 4.53 X10^3/uL (2.7-7.7); Neutrophil % 75.7 % (47-70); POSITIVE DIFFERENTIAL YES; Platelet Count 158 K/mm3 (150-450); RBC Distribution Width CV 16.8 % (11.6-14.6); RBC Distribution Width SD 55.7 fl (35.1-43.9); Red Blood Count 4.11 M/mm3 (4.6-6.2)
[2021-07-26 17:52] LABS: Differential Indicated SCAN CRITERIA MET
[2021-07-26 18:19] LABS: Differential Comment SCANNED
== END ==
PROVIDERS: PCP Family Medicine Geriatric Medicine; Referring Provider Internal Medicine Rheumatology; Visit Provider Internal Medicine Rheumatology
DX: M05.70 Rheumatoid arthritis with rheumatoid factor of unspecified site without organ or systems involvement (principal); M15.9 Polyosteoarthritis, unspecified; M21.40 Flat foot [pes planus] (acquired), unspecified foot; H35.30 Unspecified macular degeneration; K21.9 Gastro-esophageal reflux disease without esophagitis; I25.10 Atherosclerotic heart disease of native coronary artery without angina pectoris; I10 Essential (primary) hypertension; L12.0 Bullous pemphigoid; J44.9 Chronic obstructive pulmonary disease, unspecified; N04.1 Nephrotic syndrome with focal and segmental glomerular lesions; Z95.0 Presence of cardiac pacemaker; Z79.899 Other long term (current) drug therapy
CPT/HCPCS: 36415; 80053; 85025

== ENCOUNTER → 2021-07-27 16:12 | Outpatient (CLI) | payer MEDICARE, BC, SELFPAY ==
[2021-07-27 18:42] LABS: ALB/GLOB Ratio 0.7 RATIO (0.9-2.4); AST(SGOT) 18 U/L (15-37); Alanine Aminotransfer ALT/SGPT 16 U/L (16-61); Albumin, Serum 2.8 g/dL (3.2-5.0); Alkaline Phosphatase 105 U/L (45-117); Anion Gap 7 (5-15); BUN 20 mg/dL (7-18); BUN/Creat Ratio 18.7 RATIO (10-20); Calcium,Total 8.9 mg/dL (8.5-10.1); Chloride 104 mmol/L (98-107); Creatinine, Serum 1.07 mg/dL (0.70-1.30); EST Glomerular Filtration Rate 70 mL/min (>60); Est Glom Filt Rate - Afr Amer 85 mL/min (>60); Glucose 151 mg/dL (74-106); Protein, Total 6.8 g/dL (6.4-8.2); Sodium Level 139 mmol/L (136-145)
== END ==
PROVIDERS: PCP Family Medicine Geriatric Medicine; Referring Provider Internal Medicine Rheumatology; Visit Provider Internal Medicine Rheumatology
DX: M05.70 Rheumatoid arthritis with rheumatoid factor of unspecified site without organ or systems involvement (principal); M21.40 Flat foot [pes planus] (acquired), unspecified foot; H35.30 Unspecified macular degeneration; K21.9 Gastro-esophageal reflux disease without esophagitis; I25.10 Atherosclerotic heart disease of native coronary artery without angina pectoris; I10 Essential (primary) hypertension; L12.0 Bullous pemphigoid; J44.9 Chronic obstructive pulmonary disease, unspecified; N40.1 Benign prostatic hyperplasia with lower urinary tract symptoms; Z95.0 Presence of cardiac pacemaker; Z79.899 Other long term (current) drug therapy
CPT/HCPCS: 80053

== ENCOUNTER → 2021-08-19 14:05 | Outpatient (CLI) | payer MEDICARE, BC, SELFPAY ==
--- NOTE | 2021-08-19 14:24 | RAD_ITS ---
STUDY: X-RAY CHEST REASON FOR EXAM: Male, 86 years old. SOB TECHNIQUE: PA and lateral views of the chest. COMPARISON: 07/08/2021 FINDINGS: Cardiac conduction device is stable. Sternal wires and mediastinal surgical clips compatible with prior CABG. There are interstitial fibrotic changes of the lungs. No airspace consolidation. There is no demonstrated pleural abnormality. Normal size heart. Normal mediastinum and chilo. Normal visualized pulmonary arteries. Normal visualized aortic arch and descending thoracic aorta. There are diffuse degenerative changes of the visualized thoracic spine. Normal visualized ribs, clavicles, and shoulders. Aortic stent partially visualized. Hiatal hernia partially visualized. RAD/Chest PA and Lateral IMPRESSION: No acute cardiopulmonary process. Mild basilar fibrotic changes. Electronically Signed: Don Chance MD ([place]) at 16:23 EST , Service support ,
--- NOTE | 2021-08-19 14:25 | RAD_ITS ---
STUDY: X-RAY - ABDOMEN/PELVIS REASON FOR EXAM: Male, 86 years old. ABD PAIN TECHNIQUE: Single AP view of the abdomen / pelvis. COMPARISON: None. FINDINGS: Normal visualized lung bases. There is an unremarkable bowel gas pattern. There is no demonstrated free abdominal air. The visualized liver, spleen and kidneys are grossly normal in size and morphology. Normal soft tissue structures. Bilateral hip replacements. Aortoiliac stent graft noted. Vascular calcifications are present. RAD/Abdomen Single View IMPRESSION: Nonobstructive bowel gas pattern. Electronically Signed: Don Chance MD ([place]) at 16:24 EST , Service support ,
[2021-08-19 15:16] LABS: Absolute Lymphocyte Count 0.65 X10^3/uL (0.83-4.51); Absolute Neutrophil Count 5.4 X10^3/uL (2.0-7.7); Basophil# 0.03 X10^3/uL; Basophil% 0.4 % (0-1); Eosinophil# 0.38 X10^3/uL; Eosinophils% 5.4 % (0-5); Hematocrit 37.7 % (40-54); Hemoglobin 12.3 g/dL (13.0-16.5); Lymphocyte # 0.65 X10^3/ul (0.83-4.51); Lymphocyte % 9.2 % (19-41); Mean Corp Hgb Conc 32.6 g/dL (32-36); Mean Corpuscular Hgb 30.2 pg (27.0-32.0); Mean Corpuscular Volume 92.6 fL (80-94); Mean Platelet Vol. 10.4 fl (6.2-12.0); Monocyte# 0.57 X10^3/uL; Monocyte% 8.1 % (0-10); NRBC Flagged by Analyzer 0 % (0-5); Neutrophil # 5.41 X10^3/uL (2.7-7.7); Neutrophil % 76.3 % (47-70); Platelet Count 146 K/mm3 (150-450); RBC Distribution Width CV 16.6 % (11.6-14.6); RBC Distribution Width SD 55.4 fl (35.1-43.9); Red Blood Count 4.07 M/mm3 (4.6-6.2); White Blood Count 7.1 K/mm3 (4.4-11.0)
[2021-08-19 15:54] LABS: BNP,B-Type NATRIURETIC PEPTIDE 735.8 pg/mL (0-100)
[2021-08-19 15:58] LABS: Anion Gap 6 (5-15); BUN 15 mg/dL (7-18); BUN/Creat Ratio 14.7 RATIO (10-20); Calcium,Total 9.2 mg/dL (8.5-10.1); Chloride 107 mmol/L (98-107); Creatinine, Serum 1.02 mg/dL (0.70-1.30); EST Glomerular Filtration Rate 74 mL/min (>60); Est Glom Filt Rate - Afr Amer 89 mL/min (>60); Glucose 85 mg/dL (74-106); Potassium 4.4 mmol/L (3.5-5.1); Sodium Level 139 mmol/L (136-145)
== END ==
PROVIDERS: PCP Family Medicine Geriatric Medicine; Referring Provider Family Medicine Geriatric Medicine; Visit Provider Family Medicine Geriatric Medicine
DX: I50.9 Heart failure, unspecified (principal); R53.1 Weakness; R10.9 Unspecified abdominal pain; R06.89 Other abnormalities of breathing
CPT/HCPCS: 36415; 71046; 74018; 80048; 83880; 85025

== ENCOUNTER → 2021-08-20 12:23 | Outpatient (CLI) | payer MEDICARE, BC, SELFPAY | LOC: POLAB3 12:24 → LABSPEC 12:25 | PROVIDERS: PCP Family Medicine Geriatric Medicine; Visit Provider Family Medicine Geriatric Medicine | DX: N39.0 Urinary tract infection, site not specified (principal) | CPT/HCPCS: 87086; 87088 ==

== ENCOUNTER → 2021-08-26 15:41 | Outpatient (CLI) | payer MEDICARE, BC, SELFPAY ==
[2021-08-26 18:11] LABS: Anion Gap 6 (5-15); BUN 20 mg/dL (7-18); BUN/Creat Ratio 18.7 RATIO (10-20); Calcium,Total 9.3 mg/dL (8.5-10.1); Chloride 101 mmol/L (98-107); Creatinine, Serum 1.07 mg/dL (0.70-1.30); EST Glomerular Filtration Rate 70 mL/min (>60); Est Glom Filt Rate - Afr Amer 85 mL/min (>60); Glucose 102 mg/dL (74-106); Potassium 4.2 mmol/L (3.5-5.1); Sodium Level 139 mmol/L (136-145)
== END ==
PROVIDERS: PCP Family Medicine Geriatric Medicine; Visit Provider Family Medicine Geriatric Medicine
DX: I50.9 Heart failure, unspecified (principal)
CPT/HCPCS: 36415; 80048

== ENCOUNTER → 2021-10-05 16:16 | Outpatient (CLI) | payer MEDICARE, BC, SELFPAY ==
[2021-10-05 16:35] LABS: Absolute Lymphocyte Count 0.59 X10^3/uL (0.83-4.51); Absolute Neutrophil Count 4.7 X10^3/uL (2.0-7.7); Basophil# 0.03 X10^3/uL; Basophil% 0.5 % (0-1); Eosinophil# 0.29 X10^3/uL; Eosinophils% 4.5 % (0-5); Hematocrit 34.4 % (40-54); Hemoglobin 11.2 g/dL (13.0-16.5); Lymphocyte # 0.59 X10^3/ul (0.83-4.51); Lymphocyte % 9.2 % (19-41); Mean Corp Hgb Conc 32.6 g/dL (32-36); Mean Corpuscular Hgb 30.7 pg (27.0-32.0); Mean Corpuscular Volume 94.2 fL (80-94); Mean Platelet Vol. 10.5 fl (6.2-12.0); Monocyte# 0.77 X10^3/uL; NRBC Flagged by Analyzer 0 % (0-5); Neutrophil # 4.69 X10^3/uL (2.7-7.7); Neutrophil % 73.3 % (47-70); POSITIVE DIFFERENTIAL YES; Platelet Count 134 K/mm3 (150-450); RBC Distribution Width CV 16.7 % (11.6-14.6); RBC Distribution Width SD 53.9 fl (35.1-43.9); Red Blood Count 3.65 M/mm3 (4.6-6.2); White Blood Count 6.4 K/mm3 (4.4-11.0)
[2021-10-05 16:39] LABS: Differential Indicated SCAN CRITERIA MET
[2021-10-05 16:49] LABS: Anion Gap 7 (5-15); BUN 22 mg/dL (7-18); BUN/Creat Ratio 21.2 RATIO (10-20); Calcium,Total 8.8 mg/dL (8.5-10.1); Chloride 104 mmol/L (98-107); Creatinine, Serum 1.04 mg/dL (0.70-1.30); EST Glomerular Filtration Rate 72 mL/min (>60); Est Glom Filt Rate - Afr Amer 87 mL/min (>60); Glucose 93 mg/dL (74-106); Sodium Level 141 mmol/L (136-145)
[2021-10-05 16:50] LABS: BNP,B-Type NATRIURETIC PEPTIDE 777.5 pg/mL (0-100)
[2021-10-05 17:05] LABS: Differential Comment SCANNED
== END ==
PROVIDERS: PCP Family Medicine Geriatric Medicine; Visit Provider Family Medicine Geriatric Medicine
DX: R06.02 Shortness of breath (principal); R06.89 Other abnormalities of breathing
CPT/HCPCS: 36415; 80048; 83880; 85025

== ENCOUNTER 2021-10-13 16:15 | Outpatient (CLI) | payer MEDICARE, BC, SELFPAY ==
[2021-10-13 17:29] LABS: Anion Gap 7 (5-15); BUN 31 mg/dL (7-18); BUN/Creat Ratio 26.5 RATIO (10-20); Calcium,Total 9.1 mg/dL (8.5-10.1); Chloride 104 mmol/L (98-107); Creatinine, Serum 1.17 mg/dL (0.70-1.30); EST Glomerular Filtration Rate 63 mL/min (>60); Est Glom Filt Rate - Afr Amer 76 mL/min (>60); Glucose 124 mg/dL (74-106); Potassium 3.9 mmol/L (3.5-5.1); Sodium Level 140 mmol/L (136-145)
== END 2021-10-13 23:59 | disposition short-term general hospital (02) ==
LOC: POLAB3 16:16
PROVIDERS: PCP Family Medicine Geriatric Medicine; Visit Provider Family Medicine Geriatric Medicine
DX: N18.30 Chronic kidney disease, stage 3 unspecified (principal)
CPT/HCPCS: 36415; 80048

== ENCOUNTER 2021-10-26 14:38 | Outpatient (CLI) | payer MEDICARE, BC, SELFPAY ==
[2021-10-26 16:14] LABS: Absolute Lymphocyte Count 0.64 X10^3/uL (0.83-4.51); Absolute Neutrophil Count 5.5 X10^3/uL (2.0-7.7); Basophil# 0.05 X10^3/uL; Basophil% 0.7 % (0-1); Eosinophil# 0.31 X10^3/uL; Eosinophils% 4.3 % (0-5); Hematocrit 38.4 % (40-54); Lymphocyte # 0.64 X10^3/ul (0.83-4.51); Lymphocyte % 8.8 % (19-41); Mean Corp Hgb Conc 31.3 g/dL (32-36); Mean Corpuscular Hgb 29.2 pg (27.0-32.0); Mean Corpuscular Volume 93.4 fL (80-94); Mean Platelet Vol. 10.2 fl (6.2-12.0); Monocyte# 0.76 X10^3/uL; Monocyte% 10.5 % (0-10); NRBC Flagged by Analyzer 0 % (0-5); Neutrophil # 5.45 X10^3/uL (2.7-7.7); Platelet Count 151 K/mm3 (150-450); RBC Distribution Width CV 15.9 % (11.6-14.6); RBC Distribution Width SD 53.6 fl (35.1-43.9); Red Blood Count 4.11 M/mm3 (4.6-6.2); White Blood Count 7.3 K/mm3 (4.4-11.0)
[2021-10-26 16:28] LABS: Vitamin D,25 Hydroxy 58.1 ng/mL
[2021-10-26 16:36] LABS: ALB/GLOB Ratio 0.9 RATIO (0.9-2.4); AST(SGOT) 17 U/L (15-37); Alanine Aminotransfer ALT/SGPT 23 U/L (16-61); Albumin, Serum 3.4 g/dL (3.2-5.0); Alkaline Phosphatase 137 U/L (45-117); Anion Gap 9 (5-15); BUN 19 mg/dL (7-18); Calcium,Total 8.9 mg/dL (8.5-10.1); Chloride 103 mmol/L (98-107); Creatinine, Serum 1.19 mg/dL (0.70-1.30); EST Glomerular Filtration Rate 62 mL/min (>60); Est Glom Filt Rate - Afr Amer 75 mL/min (>60); Globulin 3.7 g/dL (2.2-4.2); Glucose 79 mg/dL (74-106); Potassium 3.7 mmol/L (3.5-5.1); Protein, Total 7.1 g/dL (6.4-8.2); Sodium Level 139 mmol/L (136-145)
== END 2021-10-26 23:59 | disposition short-term general hospital (02) ==
LOC: POLAB3 14:43
PROVIDERS: PCP Family Medicine Geriatric Medicine; Visit Provider Family Medicine Geriatric Medicine
DX: E55.9 Vitamin D deficiency, unspecified (principal); I10 Essential (primary) hypertension
CPT/HCPCS: 36415; 80053; 82306; 84443; 85025

== ENCOUNTER 2021-11-04 15:37 | Outpatient (CLI) | payer MEDICARE, BC, SELFPAY ==
--- NOTE | 2021-11-04 16:45 | RAD_ITS ---
INDICATION: COPD EXAMINATION/TECHNIQUE: X-RAY - XR Chest Special Views (eg Decubitus) COMPARISON: None. FINDINGS: Mild basilar fibrotic changes. No acute lung findings. Tortuous and calcified thoracic aorta. The heart is not enlarged. Median sternotomy wires present. Left-sided cardiac device. No pleural effusion or pneumothorax. Degenerative changes of the thoracic spine. RAD/Special CXR (Obl/Decub/A/L) IMPRESSION: No acute radiographic abnormalities. Mild basilar fibrotic changes. Electronically Signed: Alvin Lancaster MD at 17:05 EST ,
--- NOTE | 2021-11-04 16:45 | RAD_ITS ---
INDICATION: COPD EXAMINATION/TECHNIQUE: X-RAY - XR Chest 2 Views COMPARISON: 08/19/2021. FINDINGS: Mild basilar fibrotic changes. No acute lung findings. Tortuous and calcified thoracic aorta. The heart is not enlarged. Median sternotomy wires present. Left-sided cardiac device. No pleural effusion or pneumothorax. Degenerative changes of the thoracic spine. RAD/Chest PA and Lateral IMPRESSION: No acute radiographic abnormalities. Mild basilar fibrotic changes. Electronically Signed: Alvin Lancaster MD at 17:04 EST ,
== END 2021-11-04 23:59 | disposition short-term general hospital (02) ==
PROVIDERS: PCP Family Medicine Geriatric Medicine; Referring Provider Internal Medicine Pulmonary Disease; Visit Provider Internal Medicine Pulmonary Disease
DX: J90 Pleural effusion, not elsewhere classified (principal); J44.9 Chronic obstructive pulmonary disease, unspecified
CPT/HCPCS: 71046

== ENCOUNTER 2021-11-24 16:46 | Outpatient (CLI) | payer MEDICARE, BC, SELFPAY ==
--- NOTE | 2021-11-24 16:48 | CT_ITS ---
HISTORY: AAA EXAMINATION: CTA Abdomen and Pelvis WO/W Contrast Injection TECHNIQUE: Helically acquired images were obtained of the abdomen and pelvis following IV contrast. No oral contrast was administered. 3D CTA protocol was utilized. A radiation dose optimization technique was used for this scan. IV Contrast dosage and agent: IV 100mL [id number] COMPARISON: March 17, 2021 FINDINGS: AORTA: Diffuse aortic atherosclerosis. Inferior thoracic aneurysmal dilatation to 4.2 cm, unchanged from March 17, 2021. Suprarenal aortic bifemoral stent graft begins at the esophageal hiatus just distal to the iliac axis extending to the bilateral iliac bifurcations. Surrounding abdominal aorta 8.3 x 6.8 cm mixed attenuation aneurysm centered the aortic bifurcation and spending approximately 13 cm is stable to slightly increased from 8.0 x 6.3 cm x March 17, 2021. Left common iliac aneurysmal dilatation to 2.5 cm and right common neck aneurysmal dilatation to 2.1 cm are not significantly changed from prior exam. Right internal iliac artery aneurysmal dilatation 1.3 cm is unchanged. Left internal iliac origin near complete short segment stenosis is unchanged from March 17, 2001. CELIAC ARTERY: No occlusion. 50% significant stenosis of the origin, sagittal image 89. No Dissection. Scattered splenic artery atherosclerosis without occlusion.dd SUPERIOR MESENTERIC ARTERY: Atherosclerosis with less than 50% stenosis. No occlusion, significant stenosis, or dissection. RENAL ARTERIES: No occlusion or dissection. 55% stenosis of the right renal artery origin with early bifurcation left renal arteries grossly patent. INFERIOR MESENTERIC ARTERY: Unchanged perfusion from proximal colateral vessels. ILIAC ARTERIES: As above LOWER CHEST: Moderate right and small left pleural effusion with associated atelectasis. Chronic pacer. Mild cardiomegaly. Large hiatal hernia. BOWEL: No bowel obstruction or gross wall thickening. Bilateral inguinal colon containing hernias are present. Normal appendix. Scattered distal colon diverticulosis without evidence of diverticulitis. LIVER: Homogeneous. No focal mass. GALLBLADDER AND BILIARY TREE: Mild dependent cholelithiasis.. No gallbladder associated wall edema. No intra- or extrahepatic biliary ductal dilation. PANCREAS: No focal cystic or solid mass. SPLEEN: Normal size without focal cystic or solid mass. ADRENAL GLANDS: No nodules. KIDNEYS AND URETERS: Right and 1.3 cm hypodensity unchanged from prior exam compatible with cyst, no imaging follow-up required. Normal renal size and position. No hydronephrosis. PERITONEUM: No ascites or free air. No other fluid collection. LYMPH NODES: No enlarged mesenteric or retroperitoneal lymph nodes. URINARY BLADDER: Unremarkable. REPRODUCTIVE ORGANS: No pelvic masses. ABDOMINAL WALL: No discrete abdominal or pelvic wall hernia. BONES: No lytic or blastic abnormality. Bilateral hip arthroplasty. Sternotomy change partially seen. CT/CT ANGIO ABD&PEL W/O&W/DYE IMPRESSION: Suprarenal abdominal aortic bifemoral stent graft appears unchanged, with stable to minimally increased size of surrounding 8.3 x 6.8 cm abdominal aortic aneurysm, previously measuring 8.0 x 6.3. Heterogeneous density within the excluded aneurysm is nonspecific, similar to prior exam. Consider follow-up multiphase contrast-enhanced CT aortic study to better exclude small endoleak. Unchanged bilateral internal and external iliac atherosclerosis and ectasia stenosis. Bilateral colon containing inguinal hernias without inflammation or obstruction. Bilateral effusions with atelectasis. Hiatal hernia. Cardiomegaly and pacer with sternotomy change Individualized dose optimization techniques were used for this CT. at 0337 Reported and signed by: Justin Pate MD Electronically Signed: Justin Pate MD at 3:35 EST Reading Location ID and State: [facility] [place] Tel , Service support ,
== END 2021-11-24 23:59 | disposition home or self-care (01) ==
LOC: CT 16:47
PROVIDERS: PCP Family Medicine Geriatric Medicine; Referring Provider Surgery Vascular Surgery; Visit Provider Surgery Vascular Surgery
DX: I71.4 Abdominal aortic aneurysm, without rupture (principal); I50.1 Left ventricular failure, unspecified; I72.3 Aneurysm of iliac artery; I48.91 Unspecified atrial fibrillation; I20.9 Angina pectoris, unspecified; K40.20 Bilateral inguinal hernia, without obstruction or gangrene, not specified as recurrent; D50.9 Iron deficiency anemia, unspecified; I25.10 Atherosclerotic heart disease of native coronary artery without angina pectoris; R53.83 Other fatigue; R06.02 Shortness of breath; R07.2 Precordial pain; R94.31 Abnormal electrocardiogram [ECG] [EKG]; K80.20 Calculus of gallbladder without cholecystitis without obstruction; E87.6 Hypokalemia; R60.9 Edema, unspecified; Z79.899 Other long term (current) drug therapy
CPT/HCPCS: 74174; Q9967

== ENCOUNTER 2021-12-01 16:02 | Outpatient (CLI) | payer MEDICARE, BC, SELFPAY ==
--- NOTE | 2021-12-01 16:15 | RAD_ITS ---
STUDY: X-RAY CHEST REASON FOR EXAM: Male, 86 years old. CHEST PAIN SOB TECHNIQUE: XR Chest 2 Views COMPARISON: 11.04.21 FINDINGS: Bilateral pleural effusions. There is a left sided pacemaker batter[place]ack. Right infiltrate. Multiple median sternotomy wires are noted consistent for cardiac surgery. Normal size heart. Normal mediastinum and chilo. Normal visualized pulmonary arteries. There is atherosclerotic calcification of the aortic arch with tortuosity. There are diffuse degenerative changes of the visualized thoracic spine. There is degenerative osteoarthritis of the bilateral shoulders. There is no demonstrated abnormality of the visualized soft tissue structures of the upper abdomen. RAD/Chest PA and Lateral IMPRESSION: Pulmonary findings appear improved. Electronically Signed: Simón Mobley MD at 16:58 EST ,
[2021-12-01 16:59] LABS: Absolute Lymphocyte Count 0.47 X10^3/uL (0.83-4.51); Absolute Neutrophil Count 6.1 X10^3/uL (2.0-7.7); Basophil# 0.02 X10^3/uL; Basophil% 0.3 % (0-1); Eosinophil# 0.04 X10^3/uL; Eosinophils% 0.6 % (0-5); Hematocrit 34.6 % (40-54); Hemoglobin 11.1 g/dL (13.0-16.5); Lymphocyte # 0.47 X10^3/ul (0.83-4.51); Lymphocyte % 6.6 % (19-41); Mean Corp Hgb Conc 32.1 g/dL (32-36); Mean Corpuscular Hgb 30.3 pg (27.0-32.0); Mean Corpuscular Volume 94.5 fL (80-94); Mean Platelet Vol. 10.3 fl (6.2-12.0); Monocyte# 0.45 X10^3/uL; Monocyte% 6.4 % (0-10); NRBC Flagged by Analyzer 0 % (0-5); Neutrophil # 6.05 X10^3/uL (2.7-7.7); Neutrophil % 85.5 % (47-70); POSITIVE DIFFERENTIAL YES; Platelet Count 134 K/mm3 (150-450); RBC Distribution Width CV 16.4 % (11.6-14.6); RBC Distribution Width SD 55.6 fl (35.1-43.9); Red Blood Count 3.66 M/mm3 (4.6-6.2); White Blood Count 7.1 K/mm3 (4.4-11.0)
[2021-12-01 17:00] LABS: Differential Indicated SCAN CRITERIA MET
[2021-12-01 17:12] LABS: AST(SGOT) 21 U/L (15-37); Alanine Aminotransfer ALT/SGPT 21 U/L (16-61); Albumin, Serum 3.2 g/dL (3.2-5.0); Alkaline Phosphatase 132 U/L (45-117); Anion Gap 4 (5-15); BUN 24 mg/dL (7-18); BUN/Creat Ratio 20.5 RATIO (10-20); Calcium,Total 9.3 mg/dL (8.5-10.1); Chloride 107 mmol/L (98-107); Creatinine, Serum 1.17 mg/dL (0.70-1.30); EST Glomerular Filtration Rate 63 mL/min (>60); Est Glom Filt Rate - Afr Amer 76 mL/min (>60); Globulin 3.3 g/dL (2.2-4.2); Glucose 90 mg/dL (74-106); Protein, Total 6.5 g/dL (6.4-8.2); Sodium Level 138 mmol/L (136-145)
[2021-12-01 17:23] LABS: Differential Comment SCANNED
[2021-12-01 17:35] LABS: BNP,B-Type NATRIURETIC PEPTIDE 725.3 pg/mL (0-100)
== END 2021-12-01 23:59 | disposition home or self-care (01) ==
LOC: POLAB3 16:04 → RAD 16:11
PROVIDERS: PCP Family Medicine Geriatric Medicine; Referring Provider Family Medicine Geriatric Medicine; Visit Provider Family Medicine Geriatric Medicine
DX: R06.02 Shortness of breath (principal)
CPT/HCPCS: 36415; 71046; 80053; 83880; 85025

== ENCOUNTER 2021-12-09 15:10 | Outpatient (CLI) | payer MEDICARE, BC, SELFPAY ==
[2021-12-09 17:46] LABS: Anion Gap 5 (5-15); BUN 23 mg/dL (7-18); BUN/Creat Ratio 20.2 RATIO (10-20); Calcium,Total 8.8 mg/dL (8.5-10.1); Chloride 97 mmol/L (98-107); Creatinine, Serum 1.14 mg/dL (0.70-1.30); EST Glomerular Filtration Rate 65 mL/min (>60); Est Glom Filt Rate - Afr Amer 79 mL/min (>60); Glucose 88 mg/dL (74-106); Potassium 3.6 mmol/L (3.5-5.1); Sodium Level 137 mmol/L (136-145)
== END 2021-12-09 23:59 | disposition home or self-care (01) ==
LOC: POLAB3 15:11
PROVIDERS: PCP Family Medicine Geriatric Medicine; Visit Provider Family Medicine Geriatric Medicine
DX: I50.9 Heart failure, unspecified (principal)
CPT/HCPCS: 36415; 80048

== ENCOUNTER 2021-12-30 14:54 | Outpatient (CLI) | payer MEDICARE, BC, SELFPAY ==
[2021-12-30 17:07] LABS: Vitamin B12 653 pg/mL (211-911); Vitamin D,25 Hydroxy 77.8 ng/mL
[2021-12-30 17:15] LABS: Absolute Lymphocyte Count 0.34 X10^3/uL (0.83-4.51); Absolute Neutrophil Count 5.8 X10^3/uL (2.0-7.7); Basophil# 0.04 X10^3/uL; Basophil% 0.6 % (0-1); Eosinophil# 0.23 X10^3/uL; Eosinophils% 3.3 % (0-5); Hematocrit 35.2 % (40-54); Lymphocyte # 0.34 X10^3/ul (0.83-4.51); Lymphocyte % 4.9 % (19-41); Mean Corp Hgb Conc 31.3 g/dL (32-36); Mean Corpuscular Hgb 28.9 pg (27.0-32.0); Mean Corpuscular Volume 92.6 fL (80-94); Mean Platelet Vol. 10.5 fl (6.2-12.0); Monocyte# 0.41 X10^3/uL; NRBC Flagged by Analyzer 0 % (0-5); Neutrophil # 5.82 X10^3/uL (2.7-7.7); Neutrophil % 84.8 % (47-70); POSITIVE DIFFERENTIAL YES; Platelet Count 144 K/mm3 (150-450); RBC Distribution Width SD 56.6 fl (35.1-43.9); White Blood Count 6.9 K/mm3 (4.4-11.0)
[2021-12-30 17:17] LABS: Differential Indicated SCAN CRITERIA MET
[2021-12-30 17:20] LABS: ALB/GLOB Ratio 0.9 RATIO (0.9-2.4); AST(SGOT) 18 U/L (15-37); Alanine Aminotransfer ALT/SGPT 20 U/L (16-61); Albumin, Serum 3.2 g/dL (3.2-5.0); Alkaline Phosphatase 122 U/L (45-117); Anion Gap 7 (5-15); BUN 24 mg/dL (7-18); BUN/Creat Ratio 20.3 RATIO (10-20); Chloride 98 mmol/L (98-107); Creatinine, Serum 1.18 mg/dL (0.70-1.30); EST Glomerular Filtration Rate 62 mL/min (>60); Est Glom Filt Rate - Afr Amer 76 mL/min (>60); Globulin 3.7 g/dL (2.2-4.2); Glucose 146 mg/dL (74-106); Potassium 3.2 mmol/L (3.5-5.1); Protein, Total 6.9 g/dL (6.4-8.2); Sodium Level 137 mmol/L (136-145); Thyroid Stim Hormone (TSH) 1.35 uIU/mL (0.358-3.74)
== END 2021-12-30 23:59 | disposition home or self-care (01) ==
LOC: POLAB3 14:57
PROVIDERS: PCP Family Medicine Geriatric Medicine; Visit Provider Family Medicine Geriatric Medicine
DX: E55.9 Vitamin D deficiency, unspecified (principal); I10 Essential (primary) hypertension
CPT/HCPCS: 36415; 80053; 82306; 82607; 84443; 85025

== ENCOUNTER 2022-01-14 17:33 | Outpatient (CLI) | payer MEDICARE, BC, SELFPAY ==
--- NOTE | 2022-01-14 17:45 | CT_ITS ---
STUDY: CT CHEST WITHOUT CONTRAST REASON FOR EXAM: Male, 86 years old. NODULE RADIATION DOSAGE (If Supplied By Facility): CTDIvol = ( 7.41 ) mGy, DLP = ( 286.88 ) mGycm TECHNIQUE: Transaxial imaging was performed without the administration of intravenous contrast material. Multiplanar coronal and sagittal images were reformatted. Individualized dose optimization techniques were used for this CT. COMPARISON: 06/17/2021 FINDINGS: Right thyroid nodule has increased in size, currently measuring 2.8 x 2.9 cm (previously measured 2.3 x 2.3 cm). Interval development of multiple pulmonary nodules. 1.2 x 1.3 cm nodule in the anterior right upper lobe on image 35 is new. 0.69 x 0.68 cm nodule in the left upper lobe on image 33 of series 4 is new. 2 new nodules in the right upper lobe on image 74 of series 4 as well as new lingular nodules on image 78 and 74 of series 4. 2 nodules in the right lower lobe on image 78 of series 4 may represent previously identified nodules although difficult to be certain given architectural distortion related to increased pleural effusion. Regardless, the nodules are either new or larger since prior study. New nodule in the lateral right upper lobe on image 65 of series 4. There is also a new nodule in the lateral left lower lobe on image 113 of series 4. Atelectasis in the right middle lobe and right lower lobe. Right larger than left pleural effusions have increased in size since prior CT. Heart is mildly enlarged. Cardiac conduction device is stable. Mildly prominent lymph nodes of the mediastinum without dominant renee mass. Normal hilar regions. Normal unenhanced pulmonary arteries. Atherosclerosis and tortuosity of the thoracic aorta. There are multi-level degenerative changes of the thoracic spine. There is no demonstrated abnormality of the visualized upper abdomen. CT/Chest without Contrast IMPRESSION: 1. Since 06/17/2021, UNFAVORABLE change. Increased size and number of multiple pulmonary nodules concerning for neoplasm/metastasis. 2. Enlarging bilateral (right larger than left) pleural effusions. Electronically Signed: Don Chance MD ([place]) at 18:21 EDT Reading Location ID and State: [facility] / [place] , Service support ,
== END 2022-01-14 23:59 | disposition home or self-care (01) ==
LOC: CT 17:34
PROVIDERS: PCP Family Medicine Geriatric Medicine; Visit Provider Internal Medicine Pulmonary Disease
DX: R91.1 Solitary pulmonary nodule (principal)
CPT/HCPCS: 71250

== ENCOUNTER → 2022-02-14 | Outpatient (CLI) | payer MEDICARE, BC, SELFPAY ==
[2022-02-14 21:14] LABS: PSA,Total - Annual Screen 5.52 ng/mL (0.00-4.00); Thyroid Stim Hormone (TSH) 1.35 uIU/mL (0.358-3.74)
[2022-02-17 10:09] LABS: QNTFERON TB Mitogen Value > 10.00 IU/mL (.); QNTFERON TB Nil Value 0.05 IU/mL (.); QNTFERON TB1+ Ag Value 0.03 IU/mL (.); QNTFERON TB2+ Ag Value 0.04 IU/mL (.)
[2022-02-17 12:10] LABS: Carcinoembryonic Antigen 1.3 ng/mL (0.0-4.7); QNTIFERON TB Positive Criteria Negative (Negative)
== END | disposition home or self-care (01) ==
LOC: POLAB3 16:38
PROVIDERS: PCP Family Medicine Geriatric Medicine; Visit Provider Internal Medicine Pulmonary Disease
DX: R91.1 Solitary pulmonary nodule (principal); E04.1 Nontoxic single thyroid nodule
CPT/HCPCS: 36415; 82378; 84153; 84443; 86480; G0103

== ENCOUNTER → 2022-02-14 | Outpatient (REF) | payer MEDICARE, BC, SELFPAY | LOC: POLAB3 16:36 | PROVIDERS: PCP Family Medicine Geriatric Medicine; Referring Provider Internal Medicine Pulmonary Disease; Visit Provider Internal Medicine Pulmonary Disease | DX: R91.1 Solitary pulmonary nodule (principal) | CPT/HCPCS: 36415; 82378; 84153; 84443; 86480; G0103 ==

== ENCOUNTER 2022-02-17 17:13 | Emergency (ER) | payer MEDICARE, BC, SELFPAY ==
[2022-02-17 17:17] VITALS: BP 167/57; PULSE 60; RESP 17; TEMP 36.1; BMI 23.5
[2022-02-17 17:21] VITALS: BP 167/57; PULSE 60; RESP 16; TEMP 36.1
--- NOTE | 2022-02-17 18:07 | EX.ED.DYSGE1 ---
HPI <PRICILA Singh - Last Filed: 02/17/22 19:04> History of Present Illness Chief Complaint: Abd Pain Narrative Narrative: 86-year-old male with history of Alzheimer's, dementia, long history of coronary artery disease, [place], anemia presents to the emergency department for complaints of abdominal pain. Patient is alert and oriented to self only, the patient is currently under hospice care at his residence, today he developed abdominal pain which she is here for evaluation. Patient is agitated, moving all over the bed. Patient is hard to redirect however does state every now and then he does have abdominal pain. [facility] <PRICILA Singh - Last Filed: 02/17/22 19:04> [facility] Medical History (Updated 02/17/22 @ 21:[address] Jose R Carbajal DO) Anemia Atherosclerotic heart disease of [place] coronary artery without angina pectoris Benign essential hypertension Biventricular implantable cardioverter-defibrillator in situ Bullous pemphigoid Chest pain Chronic atrial fibrillation Chronic obstructive lung disease Chronic systolic (congestive) heart failure Confusion Dilated cardiomyopathy Essential hypertension History of anemia History of left heart catheterization (LHC) (~04/22/14) Hyperlipidemia Presence of stent in coronary artery (~12/22/09) PVD (peripheral vascular disease) Rheumatoid arthritis Thrombocytopenia UTI (urinary tract infection) Home Medications tamsulosin 0.4 mg PO DAILY 05/29/15 [History Last Taken 05/28/15 11:00] memantine 10 mg tablet 10 mg PO BID 02/26/20 [History Last Taken Unknown] albuterol sulfate 90 mcg/actuation aerosol inhaler 2 puff INHALATION Q6H PRN 10/13/20 [History Last Taken Unknown] methotrexate sodium 2.5 mg tablet 15 mg PO MO 30 Days #30 tab 10/13/20 [History Last Taken Unknown] potassium chloride 20 mEq tablet,extended release(part/cryst) 20 meq PO BID tab 03/03/21 [History Last Taken Unknown] furosemide 20 mg tablet 20 mg PO QODAY tab 09/20/21 [History Last Taken Unknown] leucovorin calcium 15 mg tablet 15 mg PO .Monday 28 Days tab 09/20/21 [History Last Taken Unknown] metoprolol tartrate 50 mg tablet 50 mg PO DAILY #90 tab 10/07/21 [Rx Last Taken Unknown] famotidine 40 mg PO DAILY 02/17/22 [History Last Taken Unknown] folic acid 1 mg PO DAILY 02/17/22 [History Last Taken Unknown] oxycodone 2.5 mg PO Q4H PRN 02/17/22 [History Last Taken Unknown] sennosides-docusate sodium [Senna Plus] 1 tab PO DAILY 02/17/22 [History Last Taken Unknown] trazodone 25 mg PO QHS 02/17/22 [History Last Taken Unknown] Allergy/AdvReac Type Severity Reaction Status Date / Time ciprofloxacin Allergy Other Verified 02/17/22 17:14 digoxin Allergy Other Verified 02/17/22 17:14 losartan [Losartan] Allergy Unknown Verified 02/17/22 17:14 minocycline Allergy Hives Verified 02/17/22 17:14 rivaroxaban [From Xarelto] Allergy Unknown Verified 02/17/22 17:14 promethazine [From Phenergan] AdvReac Severe Unknown Verified 02/17/22 17:14 escitalopram AdvReac Intermediate mental Verified 02/17/22 17:14 status change amiodarone AdvReac Other Verified 02/17/22 17:14 Family History Unknown No problems noted. Surgical History History of coronary artery bypass surgery (~10/18/12) History of hand surgery History of hip replacement History of tonsillectomy Hx of atrioventricular node ablation (~09/09/14) Hx of cataract surgery Presence of coronary angioplasty implant and graft (~12/22/09) Social History Smoking Status: Former smoker how long ago did patient quit smokin years ago alcohol intake: never substance use type: does not use caffeine: Yes Type: coffee Number of servings: 2 ROS <PRICILA Singh - Last Filed: 02/17/22 19:04> ROS ED ROS Narrative Constitutional: Negative for fever, chills, weight loss, weakness Eyes: Negative for vision loss, vision change, double vision ENT: Negative for any sore throat, ear pain, congestion Cardiovascular: Negative for any chest pain, tightness, palpitations, racing heartbeat Respiratory: Negative for any cough, sputum production, hemoptysis, shortness of breath, shortness of breath on exertion, orthopnea Gastrointestinal: Negative for any nausea, vomiting, diarrhea, constipation, blood in stool, blood in vomit. Positive for abdominal pain : Negative for any urinary frequency, incontinence, dysuria, retention, blood in urine Muscle skeletal: Negative for any muscle joint pain, stiffness, myalgias, arthralgias, neck pain, back pain Neurological: Negative for any headache, dizziness, syncope, numbness or tingling Skin: Negative for any rashes, lumps, itching, abrasions, lacerations Psychiatric: Negative for any depression, anxiety, stress, suicidal ideation, homicidal ideation Hematologic: Negative for any easy bruising, excessive bruising, easy bleeding Allergies: Negative for any eczema, hives, rash EXAM <PRICILA Singh - Last Filed: 02/17/22 19:04> Physical Exam Narrative Exam Narrative: Vital signs reviewed. Patient is alert and oriented x1. Patient is moving all over the bed, patient is very hard to direct. Patient is a very poor historian. Patient does mention he does have abdominal pain. Patient's with examination is inconsistent. HEET: Head normocephalic atraumatic, TMs clear bilaterally. Posterior pharynx is clear, moist mucous membranes. Nares clear bilaterally. Neck: Supple with no lymphadenopathy or tenderness. No signs of meningismus, negative jolt sign. Cardiac: Regular rate and rhythm no murmurs gallops or rubs, equal peripheral pulses bilaterally. Respiratory: Lungs clear to auscultation bilaterally. No chest tenderness. Abdomen: Soft, nontender, nondistended. No abdominal bruit or pulsatile masses. No hepatosplenomegaly Extremities: No peripheral edema, no signs of gross trauma or deformity. Active full range of motion of all extremities. Neuro: Cranial nerves II through XII intact, no focal neurological deficits. Skin: Clean dry and intact with no rash, purpura, petechiae, vesicles or pustules. Backslash flank: No CVA tenderness, no midline spinal tenderness, no deformity. Psych: Normal mood and affect. No SI, HI or acute psychosis. Const Vital Signs: 02/17/22 17:17 02/17/22 17:21 02/17/22 20:36 Temperature 96.9 F L 96.9 F L Temperature Source Oral Oral Pulse Rate 60 60 Respiratory Rate 17 16 18 Blood Pressure 167/57 H 167/57 H Blood Pressure Mean 93 93 Oxygen Delivery Method Nasal Cannula Oxygen Flow Rate (L/min) 3 02/17/22 22:11 Temperature Temperature Source Pulse Rate 60 Respiratory Rate 18 Blood Pressure 156/78 H Blood Pressure Mean Oxygen Delivery Method Oxygen Flow Rate (L/min) Positive cachectic General Appearance ED: cachectic Nutritional Appearance: cachectic <Dr. Jose R Carbajal, DO - Last Filed: 02/18/22 01:39> Physical Exam Const Vital Signs: 02/17/22 17:17 02/17/22 17:21 02/17/22 20:36 Temperature 96.9 F L 96.9 F L Temperature Source Oral Oral Pulse Rate 60 60 Respiratory Rate 17 16 18 Blood Pressure 167/57 H 167/57 H Blood Pressure Mean 93 93 Oxygen Delivery Method Nasal Cannula Oxygen Flow Rate (L/min) 3 02/17/22 22:11 Temperature Temperature Source Pulse Rate 60 Respiratory Rate 18 Blood Pressure 156/78 H Blood Pressure Mean Oxygen Delivery Method Oxygen Flow Rate (L/min) MDM <PRICILA Singh - Last Filed: 02/17/22 19:04> [facility] MDM Narrative Medical decision making narrative: A long conversation was had with the patient's , patient is currently on hospice. It seems to be some lack of education regarding hospice care, DNR, full code. Due to the patient's history of having an 8 cm abdominal aneurysm, patient having severe pain, the patient does need a CTA abdomen pelvis. Patient is also anemic with a hemoglobin of 6.6, this is new from the 11 in December 2021. Lab Data Labs: Laboratory Results - last 24 hr 02/17/22 02/17/22 02/17/22 18:28 19:10 19:10 WBC 10.9 RBC 2.26 L Hgb 6.6 L Hct 21.3 L MCV 94.2 H MCH 29.2 MCHC 31.0 L RDW Std Deviation 58.5 H RDW Coeff of [place] 17.7 H Plt Count 183 MPV 10.7 Immature Gran % (Auto) 1.000 H Neut % (Auto) 90.8 H Lymph % (Auto) 2.4 L [place] % (Auto) 5.7 Eos % (Auto) 0.0 Baso % (Auto) 0.1 Absolute Neuts (auto) 9.9 H Absolute Lymphs (auto) 0.26 L Nucleated RBC % 0.2 Differential Comment SCANNED Sodium 138 Potassium 4.3 Chloride 105 Carbon Dioxide 22.0 Anion Gap 11 BUN 69 H Creatinine 1.84 H Estim Creat Clear Calc 27.94 Est GFR (MDRD) Af Amer 45 L Est GFR (MDRD) Non-Af 37 L BUN/Creatinine Ratio 37.5 H Glucose 179 H Calcium 9.3 Total Bilirubin 0.60 AST 16 ALT 15 L Alkaline Phosphatase 83 Total Protein 6.1 L Albumin 3.1 L Globulin 3.0 Albumin/Globulin Ratio 1.0 Lipase 47 L Urine Color Urine Clarity Urine pH Ur Specific [place] Urine Protein Urine Glucose (UA) Urine Ketones Urine Occult Blood Urine Nitrite Urine Bilirubin Urine Urobilinogen Ur Leukocyte Esterase Urine RBC Urine WBC Ur Squamous Epith Cells Urine Bacteria Urine Mucus Blood Type O POSITIVE Antibody Screen NEGATIVE 02/17/22 19:22 WBC RBC Hgb Hct MCV MCH MCHC RDW Std Deviation RDW Coeff of [place] Plt Count MPV Immature Gran % (Auto) Neut % (Auto) Lymph % (Auto) [place] % (Auto) Eos % (Auto) Baso % (Auto) Absolute Neuts (auto) Absolute Lymphs (auto) Nucleated RBC % Differential Comment Sodium Potassium Chloride Carbon Dioxide Anion Gap BUN Creatinine Estim Creat Clear Calc Est GFR (MDRD) Af Amer Est GFR (MDRD) Non-Af BUN/Creatinine Ratio Glucose Calcium Total Bilirubin AST ALT Alkaline Phosphatase Total Protein Albumin Globulin Albumin/Globulin Ratio Lipase Urine Color Yellow Urine Clarity Clear Urine pH 6.0 Ur Specific [place] 1.010 Urine Protein 30 H Urine Glucose (UA) Normal Urine Ketones Negative Urine Occult Blood 10 H Urine Nitrite Negative Urine Bilirubin Negative Urine Urobilinogen Normal Ur Leukocyte Esterase Negative Urine RBC 0 SEEN Urine WBC 0 SEEN Ur Squamous Epith Cells 0 SEEN Urine Bacteria 0 SEEN Urine Mucus 0 SEEN Blood Type Antibody Screen Radiography Diagnostic Testing: Clinical Impression(s) from Imaging Studies Abdomen/Pelvis CTA 02/17/22 18:44 IMPRESSION: 1. Fusiform abdominal aortic aneurysm, status post aortobiiliac stent graft. Stable to slightly increased axial dimension of aneurysm. No para-aortic leak/hemorrhage. Noncontrast imaging not performed, limits evaluation for endoleak. 2. Bilateral common iliac artery aneurysm stable. 3. Similar right larger than left pleural effusions. Electronically Signed: Don Chance MD ([place]) at 20:15 EDT , <Dr. Jose R Carbajal, DO - Last Filed: 02/18/22 01:39> [facility] MDM Narrative Medical decision making narrative: Attending note: Patient seen and evaluated with fundraiser. I perform my own [id number] evaluation. I agree with the plan of work-up. Spouse is present information due to dementia history. Increasing mid abdominal pain since yesterday. Patient known AAA with repair in the past. Followed by Dr. Salmeron. Last month has been following hospice. DNR status has not been made. No vomiting no diarrhea. Nonbloody stools per spouse. Exam there is some mid abdominal tenderness there is no pulsatile mass. Patient in November had a CT scan noted enlarging aneurysm of 8.3 cm with a stent intact. Patient was uncomfortable on exam. Patient was treated for his pain, work-up to rule out aortic stent leak due to his symptoms. I discussed extensively with spouse prior to scan for disposition if findings. Discussed he is being established with hospice and if anything life-threatening we will plan to keep comfortable. CT angiogram results stable stent with no leaking. Labs White count 10.9 however hemoglobin 6.6 down from 11 2 months ago. Creatinine 1.84. I discussed this with the spouse, discussed can work-up his anemia however he is not lightheaded he is demented. He has minimal ambulation. She states she would not want any blood transfusion for him. Therefore work-up was not initiated further here. Information was placed on the chart for her to discuss with hospice care as an outpatient. Patient was sleeping more comfortable on reevaluation. All questions were answered. Lab Data Attestation: I reviewed the patient's lab results. Labs: Laboratory Results - last 24 hr 02/17/22 02/17/22 02/17/22 18:28 19:10 19:10 WBC 10.9 RBC 2.26 L Hgb 6.6 L Hct 21.3 L MCV 94.2 H MCH 29.2 MCHC 31.0 L RDW Std Deviation 58.5 H RDW Coeff of [place] 17.7 H Plt Count 183 MPV 10.7 Immature Gran % (Auto) 1.000 H Neut % (Auto) 90.8 H Lymph % (Auto) 2.4 L [place] % (Auto) 5.7 Eos % (Auto) 0.0 Baso % (Auto) 0.1 Absolute Neuts (auto) 9.9 H Absolute Lymphs (auto) 0.26 L Nucleated RBC % 0.2 Differential Comment SCANNED Sodium 138 Potassium 4.3 Chloride 105 Carbon Dioxide 22.0 Anion Gap 11 BUN 69 H Creatinine 1.84 H Estim Creat Clear Calc 27.94 Est GFR (MDRD) Af Amer 45 L Est GFR (MDRD) Non-Af 37 L BUN/Creatinine Ratio 37.5 H Glucose 179 H Calcium 9.3 Total Bilirubin 0.60 AST 16 ALT 15 L Alkaline Phosphatase 83 Total Protein 6.1 L Albumin 3.1 L Globulin 3.0 Albumin/Globulin Ratio 1.0 Lipase 47 L Urine Color Urine Clarity Urine pH Ur Specific [place] Urine Protein Urine Glucose (UA) Urine Ketones Urine Occult Blood Urine Nitrite Urine Bilirubin Urine Urobilinogen Ur Leukocyte Esterase Urine RBC Urine WBC Ur Squamous Epith Cells Urine Bacteria Urine Mucus Blood Type O POSITIVE Antibody Screen NEGATIVE 02/17/22 19:22 WBC RBC Hgb Hct MCV MCH MCHC RDW Std Deviation RDW Coeff of [place] Plt Count MPV Immature Gran % (Auto) Neut % (Auto) Lymph % (Auto) [place] % (Auto) Eos % (Auto) Baso % (Auto) Absolute Neuts (auto) Absolute Lymphs (auto) Nucleated RBC % Differential Comment Sodium Potassium Chloride Carbon Dioxide Anion Gap BUN Creatinine Estim Creat Clear Calc Est GFR (MDRD) Af Amer Est GFR (MDRD) Non-Af BUN/Creatinine Ratio Glucose Calcium Total Bilirubin AST ALT Alkaline Phosphatase Total Protein Albumin Globulin Albumin/Globulin Ratio Lipase Urine Color Yellow Urine Clarity Clear Urine pH 6.0 Ur Specific [place] 1.010 Urine Protein 30 H Urine Glucose (UA) Normal Urine Ketones Negative Urine Occult Blood 10 H Urine Nitrite Negative Urine Bilirubin Negative Urine Urobilinogen Normal Ur Leukocyte Esterase Negative Urine RBC 0 SEEN Urine WBC 0 SEEN Ur Squamous Epith Cells 0 SEEN Urine Bacteria 0 SEEN Urine Mucus 0 SEEN Blood Type Antibody Screen Radiography Diagnostic Testing: Clinical Impression(s) from Imaging Studies Abdomen/Pelvis CTA 02/17/22 18:44 IMPRESSION: 1. Fusiform abdominal aortic aneurysm, status post aortobiiliac stent graft. Stable to slightly increased axial dimension of aneurysm. No para-aortic leak/hemorrhage. Noncontrast imaging not performed, limits evaluation for endoleak. 2. Bilateral common iliac artery aneurysm stable. 3. Similar right larger than left pleural effusions. Electronically Signed: Don Chance MD ([place]) at 20:15 EDT , Discharge Plan Triage Chief Complaint: Abd Pain ED Midlevel Provider: Xavier Swanson ED Provider: Jose R Carbajal Dx/Rx/DC Orders Clinical Impression: Abdominal pain, Anemia, AAA (abdominal aortic aneurysm) without rupture, Renal insufficiency, Dementia Instructions: Abdominal Pain, Anemia, AAA Endovascular Repair Prescriptions: No Action methotrexate sodium 2.5 mg tablet 15 mg PO MO 30 Days Qty: 30 RF: 0 Hold Instructions: decreased kidney function leucovorin calcium 15 mg tablet 15 mg PO .Monday 28 Days RF: 0 Hold Instructions: decreased kidney function memantine 10 mg tablet 10 mg PO BID RF: 0 furosemide 20 mg tablet 20 mg PO QODAY RF: 0 potassium chloride 20 mEq tablet,ER particles/crystals 20 meq PO BID RF: 0 albuterol sulfate 90 mcg/actuation HFA aerosol inhaler 2 puff INHALATION Q6H PRN (Reason: Shortness Of Breath) RF: 0 tamsulosin 0.4 MG capsule 0.4 mg PO DAILY RF: 0 trazodone 50 mg tablet 25 mg PO QHS RF: 0 famotidine 40 mg tablet 40 mg PO DAILY RF: 0 sennosides-docusate sodium [Senna Plus] 8.6-50 mg tablet 1 tab PO DAILY RF: 0 folic acid 1 mg Tablet 1 mg PO DAILY RF: 0 oxycodone 5 mg tablet 2.5 mg PO Q4H PRN (Reason: Pain) RF: 0 metoprolol tartrate 50 mg tablet 50 mg PO DAILY Qty: 90 RF: 3 Primary Care Provider: Anuel Garcia Chi Referrals: Anuel Garcia Chi, MD [Primary Care Provider] - Activity Restrictions/Additional Instructions: CT scan with no leaking of the AAA from previous surgery. Hemoglobin 6.6 today. Creatinine 1.8 today. You do not want work-up for these lab values due to his dementia history. Discussed with hospice plan of care. Disposition Disposition: Home, Self Care Discharge Date/Time: 02/17/22 22:13
[2022-02-17 18:38] LABS: Absolute Lymphocyte Count 0.26 X10^3/uL (0.83-4.51); Absolute Neutrophil Count 9.9 X10^3/uL (2.0-7.7); Basophil# 0.01 X10^3/uL; Basophil% 0.1 % (0-1); Hematocrit 21.3 % (40-54); Hemoglobin 6.6 g/dL (13.0-16.5); Lymphocyte # 0.26 X10^3/ul (0.83-4.51); Lymphocyte % 2.4 % (19-41); Mean Corpuscular Hgb 29.2 pg (27.0-32.0); Mean Corpuscular Volume 94.2 fL (80-94); Mean Platelet Vol. 10.7 fl (6.2-12.0); Monocyte# 0.62 X10^3/uL; Monocyte% 5.7 % (0-10); NRBC Flagged by Analyzer 0.2 % (0-5); Neutrophil # 9.88 X10^3/uL (2.7-7.7); Neutrophil % 90.8 % (47-70); POSITIVE DIFFERENTIAL YES; Platelet Count 183 K/mm3 (150-450); RBC Distribution Width CV 17.7 % (11.6-14.6); RBC Distribution Width SD 58.5 fl (35.1-43.9); Red Blood Count 2.26 M/mm3 (4.6-6.2); White Blood Count 10.9 K/mm3 (4.4-11.0)
[2022-02-17 18:41] LABS: Differential Indicated SCAN CRITERIA MET
--- NOTE | 2022-02-17 18:44 | CT_ITS ---
INDICATION: Ruptured aneurysm EXAMINATION: CTA abdomen and pelvis - TECHNIQUE: Routine abdominal CT angiogram protocol was performed with IV contrast. MIP images provided. A radiation dose optimization technique was used for this scan. IV Contrast dosage and agent: Radiation dose DLP mGy / cm. COMPARISON: 11/24/2021 FINDINGS: AORTA: Diffuse aortic atherosclerosis. Inferior thoracic aneurysmal dilatation to 4.2 cm, stable. Suprarenal aortic bifemoral stent graft begins at the level of the celiac axis extending to the bilateral iliac bifurcations. Surrounding abdominal aorta 8.1 x 7.1 cm mixed attenuation aneurysm centered the aortic bifurcation is stable to slightly increased (previously measured 8.3 x 6.8 cm). CELIAC ARTERY: No occlusion. 50% significant stenosis of the origin. No Dissection. Scattered splenic artery atherosclerosis without occlusion. SUPERIOR MESENTERIC ARTERY: Atherosclerosis with less than 50% stenosis. No occlusion, significant stenosis, or dissection. RENAL ARTERIES: No occlusion or dissection. 50% stenosis of the right renal artery origin with early bifurcation. Left renal arteries grossly patent. INFERIOR MESENTERIC ARTERY: Unchanged perfusion from SMA collateral vessels. ILIAC ARTERIES: Left common iliac aneurysmal dilatation to 2.5 cm and right common neck aneurysmal dilatation to 2.1 cm are not significantly changed from prior exam. Right internal iliac artery aneurysmal dilatation 1.3 cm is unchanged. Left internal iliac origin near complete short segment stenosis is unchanged. LOWER CHEST: Moderate right and small left pleural effusion with associated atelectasis, stable. Stable cardiac conduction device. Mild cardiomegaly. Moderate hiatal hernia. BOWEL: No bowel obstruction or gross wall thickening. Bilateral inguinal colon containing hernias are present. Normal appendix. Scattered distal colon diverticulosis without evidence of diverticulitis. LIVER: Homogeneous. No focal mass. GALLBLADDER AND BILIARY TREE: Mild dependent cholelithiasis.. No gallbladder associated wall edema. No intra- or extrahepatic biliary ductal dilation. PANCREAS: No focal cystic or solid mass. SPLEEN: Normal size without focal cystic or solid mass. ADRENAL GLANDS: No nodules. KIDNEYS AND URETERS: Right and 1.3 cm hypodense lesion unchanged from prior exam compatible with cyst, no imaging follow-up required. Normal renal size and position. No hydronephrosis. PERITONEUM: No ascites or free air. No other fluid collection. LYMPH NODES: No enlarged mesenteric or retroperitoneal lymph nodes. URINARY BLADDER: Unremarkable. REPRODUCTIVE ORGANS: No pelvic masses. ABDOMINAL WALL: No discrete abdominal or pelvic wall hernia. BONES: No lytic or blastic abnormality. Bilateral hip arthroplasty. Sternotomy change partially seen. CT/CT ANGIO ABD&PEL W/O&W/DYE IMPRESSION: 1. Fusiform abdominal aortic aneurysm, status post aortobiiliac stent graft. Stable to slightly increased axial dimension of aneurysm. No para-aortic leak/hemorrhage. Noncontrast imaging not performed, limits evaluation for endoleak. 2. Bilateral common iliac artery aneurysm stable. 3. Similar right larger than left pleural effusions. Electronically Signed: Don Chance MD ([place]) at 20:15 EDT Reading Location ID and State: [facility] / [place] , Service support ,
[2022-02-17 19:14] LABS: Differential Comment SCANNED
[2022-02-17] MEDS: 0.9% Normal Saline 1,000 ML 1000 ML IV (19:28)
[2022-02-17 19:29] LABS: Bacteria 0 SEEN /hpf (None Seen); Mucous, Urine 0 SEEN /hpf (<or=2+); Red Blood Cells-Urine 0 SEEN /hpf (0-5); Squamous Epithelial Cells - UA 0 SEEN /hpf (0-5); White Blood Cells 0 SEEN /hpf (0-5)
[2022-02-17] MEDS: Ondansetron 4 MG/2 ML Vial IV (19:29)
[2022-02-17] MEDS: fentaNYL 100 MCG/2 ML Ampul 25 MCG IV (19:30)
[2022-02-17 19:40] LABS: Color, Urine Yellow (Yellow); Glucose, Dipstick Normal (Normal); Ketone-Dipstick Negative (Negative); Leukocyte Esterase-Dipstick Negative /ul (Negative); Nitrite-Dipstick Negative (Negative); Occult Blood-Urine 10 /ul (Negative); Protein-Dipstick 30 mg/dl (Negative); Urine Bilirubin Dipstick Negative (Negative); Urine Clarity Clear (Clear); Urine Urobilinogen Normal (Normal)
[2022-02-17 19:54] LABS: AST(SGOT) 16 U/L (15-37); Alanine Aminotransfer ALT/SGPT 15 U/L (16-61); Albumin, Serum 3.1 g/dL (3.2-5.0); Alkaline Phosphatase 83 U/L (45-117); Anion Gap 11 (5-15); BUN 69 mg/dL (7-18); BUN/Creat Ratio 37.5 RATIO (10-20); Calcium,Total 9.3 mg/dL (8.5-10.1); Chloride 105 mmol/L (98-107); Creatinine, Serum 1.84 mg/dL (0.70-1.30); EST Glomerular Filtration Rate 37 mL/min (>60); Est Glom Filt Rate - Afr Amer 45 mL/min (>60); Estimated Creatinine Clearance 27.94 ml/min; Glucose 179 mg/dL (74-106); Lipase 47 U/L (73-393); Potassium 4.3 mmol/L (3.5-5.1); Protein, Total 6.1 g/dL (6.4-8.2); Sodium Level 138 mmol/L (136-145)
[2022-02-17 20:36] VITALS: RESP 18
[2022-02-17 22:11] VITALS: BP 156/78; PULSE 60; RESP 18
== END 2022-02-17 22:13 | disposition home or self-care (01) ==
PROVIDERS: Nurse Practitioner; Emergency Provider Emergency Medicine; PCP Family Medicine Geriatric Medicine; Visit Provider Emergency Medicine
DX: R10.9 Unspecified abdominal pain (principal); G30.9 Alzheimer's disease, unspecified; F02.80 Dementia in other diseases classified elsewhere, unspecified severity, without behavioral disturbance, psychotic disturbance, mood disturbance, and anxiety; J44.9 Chronic obstructive pulmonary disease, unspecified; I11.0 Hypertensive heart disease with heart failure; I42.0 Dilated cardiomyopathy; I50.22 Chronic systolic (congestive) heart failure; I71.4 Abdominal aortic aneurysm, without rupture; D64.9 Anemia, unspecified; I25.10 Atherosclerotic heart disease of native coronary artery without angina pectoris; N28.9 Disorder of kidney and ureter, unspecified; I25.2 Old myocardial infarction; Z95.5 Presence of coronary angioplasty implant and graft; Z79.899 Other long term (current) drug therapy; Z87.891 Personal history of nicotine dependence
CPT/HCPCS: 74174; 80053; 81001; 83690; 85025; 86850; 86900; 86901; 96361; 96374; 96375; 99285; Q9967; A4216; J2405